=== PATIENT | female | born 1930 | race Caucasian/White ===

== ENCOUNTER 2017-01-27 17:10 | Emergency (ER) | payer OTHER ==
[~2017-01-27] VITALS: Ht 170.2 cm; Wt 82.0 kg
[2017-01-27] VITALS (7 sets, daily range): BP systolic 98–246; BP diastolic 58–116; PULSE 76–92; RESP 18–22; TEMP 98.1–99.1; O2SAT 93–96
[~2017-01-27 17:10] MED LIST: ASPI81TA82 PO; CLON0.2T PO; GLIP2.5T6 OR; LISI20 PO; METO100T PO; SIMV40 PO
[2017-01-27] MEDS ORDERED: SODIUM CHLORIDE 0.9% FLUSH 10 ML FLUSH IVF PRN (17:30)
[2017-01-27] MEDS ORDERED: SPIR25 PO (18:03)
[2017-01-27] MEDS ORDERED: AMLO10 PO (18:03)
[2017-01-27] MEDS ORDERED: D31000CA3 PO (18:03)
[2017-01-27] MEDS ORDERED: ALPH200C4 PO (18:03)
[2017-01-27] MEDS ORDERED: ZOCO20TA PO (18:03)
[2017-01-27] MEDS ORDERED: METO25TA3 PO (18:03)
[2017-01-27] MEDS ORDERED: CLAR10TA7 PO (18:03)
[2017-01-27] MEDS ORDERED: MULTTAB67 PO (18:03)
[2017-01-27] MEDS ORDERED: ASPI-183 PO (18:03)
[2017-01-27] MEDS ORDERED: GLIP5TAB8 PO (18:03)
[2017-01-27] MEDS ORDERED: FISH1400 PO (18:03)
[2017-01-27] MEDS ORDERED: GLUC1TAB24 PO (18:03)
[2017-01-27] MEDS ORDERED: NEUR100C PO (18:03)
[2017-01-27] MEDS ORDERED: METF500T PO (18:03)
[2017-01-27] MEDS ORDERED: LISI-519 PO (18:03)
[2017-01-27 18:06] LABS: AUTOMATED NEUTROPHIL # 6.3 TH/MM3 (1.8-7.7); BASOPHIL # 0.1 TH/MM3 (0-0.2); BASOPHIL % 0.6 % (0.0-2.0); EOSINOPHIL # 0.2 TH/MM3 (0-0.4); EOSINOPHIL % 2.2 % (0.0-4.0); HEMATOCRIT 37.9 % (35.0-46.0); HEMO FLAGS DIFF FINAL; LYMPH % 26.4 % (9.0-44.0); LYMPHOCYTE # 2.6 TH/MM3 (1.0-4.8); MEAN CORPUSCULAR HEMOGLOBIN 29.8 PG (27.0-34.0); MEAN CORPUSCULAR HGB CONC 34.6 % (32.0-36.0); MONO % 6.9 % (0.0-8.0); NEUT % 63.9 % (16.0-70.0); PLATELET COUNT 253 TH/MM3 (150-450); RED BLOOD COUNT 4.41 MIL/MM3 (4.00-5.30); WHITE BLOOD COUNT 9.8 TH/MM3 (4.0-11.0)
[2017-01-27] MEDS ORDERED: cloNIDine HCL 0.2 MG TAB PO ONE (18:15)
[2017-01-27 18:17] LABS: APTT (PATIENT) 24.3 SEC (24.3-30.1); PROTHROMBIN TIME - PATIENT 10.6 SEC (9.8-11.6)
[2017-01-27 18:33] LABS: ANION GAP 9 MEQ/L (5-15); AST (GOT) 22 U/L (15-37); BICARBONATE 29.5 MEQ/L (21.0-32.0); BLOOD UREA NITROGEN 19 MG/DL (7-18); CHLORIDE 100 MEQ/L (98-107); GLOMERULAR FILTRATION RATE 61 ML/MIN (>89); MAGNESIUM 1.9 MG/DL (1.5-2.5); POTASSIUM 3.7 MEQ/L (3.5-5.1); SODIUM (NA) 138 MEQ/L (136-145)
--- NOTE | 2017-01-27 18:38 | PD ---
HPI . Hypertension, weakness Chief Complaint: General Weakness Time Seen by Provider: 17:54 Travel History International Travel<30 days: No Contact w/Intl Traveler<30days: No Traveled to known affect area: No History of Present Illness HPI 86-year-old female presents emergency department for evaluation of hypertension. Patient states she has felt weak and nauseous since last Thursday. Patient also states she fell off of a curb last Thursday hitting the right aspect of her head and her left knee. Patient has been ambulatory since that fall. Patient states she started feeling weak and nauseated on Thursday that went to her primary care today and was found to be hypertensive. Patient states she has taken all of her blood pressure medications this morning. Patient is taking Norvasc, lisinopril and spironolactone. Patient was seen at our facility in 2012 for hypertension. This presentation is very similar to the presentation described in her 2013 visit. Patient is asymptomatic denying chest pain, shortness breath, abdominal pain, headache, lightheadedness. PFSH Past Medical History High Cholesterol: Yes Diabetes: Yes Patient Takes Glucophage: No Diminished Hearing: No GERD: Yes Hypertension: Yes ?: Not Menopausal: Yes : 10 Para: 9 Miscarriage: 1 Past Surgical History Section: Yes (1967) Genitourinary Surgery: Yes (DROPPED KIDNEY FIXED) Hysterectomy: Yes (1967--"PARTIAL") Social History Alcohol Use: No Tobacco Use: No Substance Use: No Allergies-Medications (Allergen,Severity, Reaction): Coded Allergies: No Known Allergies (Verified , 07/16/12) Reported Meds & Prescriptions Reported Meds & Active Scripts Active Clonidine (Clonidine HCl) 0.1 Mg Tab 0.1 Mg PO BID PRN Reported Lisinopril 5 Mg Tab 5 Mg PO DAILY Norvasc (Amlodipine Besylate) 10 Mg Tab 10 Mg PO DAILY Neurontin (Gabapentin) 100 Mg Cap 100 Mg PO HS Zocor (Simvastatin) 20 Mg Tab 20 Mg PO HS Claritin (Loratadine) 10 Mg Tablet 10 Mg PO DAILY Aldactone (Spironolactone) 25 Mg Tab 25 Mg PO DAILY Metoprolol Tartrate 25 Mg Tab 25 Mg PO BID Metformin (Metformin HCl) 500 Mg Tab 500 Mg PO BID With Meals Glipizide 5 Mg Tab 2.5 Mg PO DAILY Take 30 minutes before a meal Alpha Lipoic Acid 200 Mg Cap 600 Mg PO DAILY Vitamin D-3 (Cholecalciferol) 1,000 Unit Cap 1,000 Units PO DAILY Aspirin 325 Mg Tab 325 Mg PO DAILY Fish Oil Triple Strength 1400 mg ([place]-3 Fatty Acids) 900 Mg (253 Mg-647 Mg)-1, 400 Mg Cap 1,400 Mg PO DAILY Move Free Joint Health Ad (Qotmradstky-Tttxbtneaxv-Frtejj) 750 Mg-100 Mg-1.65 Mg -108 Mg Tab 1 Tab PO DAILY Multiple Vitamin 1 Tab 1 Tab PO DAILY Review of Systems Except as stated in HPI: all other systems reviewed are Neg Physical Exam Narrative GENERAL: Well-nourished well-developed 86-year-old female in no acute distress. Conversing and smiling during exam. Nontoxic appearing. SKIN: Focused skin assessment warm/dry. HEAD: Atraumatic. Normocephalic. EYES: Pupils equal and round. No scleral icterus. No injection or drainage. ENT: No nasal bleeding or discharge. Mucous membranes pink and moist. NECK: Trachea midline. No JVD. CARDIOVASCULAR: Regular rate and rhythm. No murmur appreciated. RESPIRATORY: No accessory muscle use. Clear to auscultation. Breath sounds equal bilaterally. GASTROINTESTINAL: Abdomen soft, non-tender, nondistended. Hepatic and splenic margins not palpable. MUSCULOSKELETAL: No obvious deformities. No clubbing. No cyanosis. No edema. NEUROLOGICAL: Awake and alert. No obvious cranial nerve deficits. Motor grossly within normal limits. Normal speech. PSYCHIATRIC: Appropriate mood and affect; insight and judgment normal. Data Data Last Documented VS Vital Signs Date Time Temp Pulse Resp B/P (MAP) Pulse Ox O2 Delivery O2 Flow Rate FiO2 01/27/17 21:35 84 18 98/58 (71) 95 Room Air 01/27/17 17:17 99.1 Orders Orders Electrocardiogram (01/27/17 17:28) Complete Blood Count With Diff (01/27/17 17:28) Comprehensive Metabolic Panel (01/27/17 17:28) Magnesium (Mg) (01/27/17 17:28) Prothrombin Time / Inr (Pt) (01/27/17 17:28) Act Partial Throm Time (Ptt) (01/27/17 17:28) Troponin I (01/27/17 17:28) Chest, Single Ap (01/27/17 17:28) Ecg Monitoring (01/27/17 17:28) Bilateral Bp Monitoring (01/27/17 17:28) Iv Access Insert/Monitor (01/27/17 17:28) Oximetry (01/27/17 17:28) Oxygen Administration (01/27/17 17:28) Sodium Chloride 0.9% Flush (Ns Flush) (01/27/17 17:30) Thyroid Stimulating Hormone (01/27/17 17:28) Clonidine (Catapres) (01/27/17 18:15) Ct Brain W/O Iv Contrast(Rout) (01/27/17 ) Urinalysis - C+S If Indicated (01/27/17 18:20) Ed Discharge Order (01/27/17 19:51) Urine Culture (01/27/17 19:18) Sodium Chlor 0.9% 250 Ml Inj (Ns 250 Ml (01/27/17 21:15) Labs Laboratory Tests Test 01/27/17 17:25 01/27/17 19:18 White Blood Count 9.8 TH/MM3 Red Blood Count 4.41 MIL/MM3 Hemoglobin 13.1 GM/DL Hematocrit 37.9 % Mean Corpuscular Volume 86.0 FL Mean Corpuscular Hemoglobin 29.8 PG Mean Corpuscular Hemoglobin Concent 34.6 % Red Cell Distribution Width 14.0 % Platelet Count 253 TH/MM3 Mean Platelet Volume 7.9 FL Neutrophils (%) (Auto) 63.9 % Lymphocytes (%) (Auto) 26.4 % Monocytes (%) (Auto) 6.9 % Eosinophils (%) (Auto) 2.2 % Basophils (%) (Auto) 0.6 % Neutrophils # (Auto) 6.3 TH/MM3 Lymphocytes # (Auto) 2.6 TH/MM3 Monocytes # (Auto) 0.7 TH/MM3 Eosinophils # (Auto) 0.2 TH/MM3 Basophils # (Auto) 0.1 TH/MM3 CBC Comment DIFF FINAL Differential Comment Prothrombin Time 10.6 SEC Prothromb Time International Ratio 1.0 RATIO Activated Partial Thromboplast Time 24.3 SEC Blood Urea Nitrogen 19 MG/DL Creatinine 0.88 MG/DL Random Glucose 101 MG/DL Total Protein 7.7 GM/DL Albumin 4.1 GM/DL Calcium Level 9.7 MG/DL Magnesium Level 1.9 MG/DL Alkaline Phosphatase 55 U/L Aspartate Amino Transf (AST/SGOT) 22 U/L Alanine Aminotransferase (ALT/SGPT) 30 U/L Total Bilirubin 0.4 MG/DL Sodium Level 138 MEQ/L Potassium Level 3.7 MEQ/L Chloride Level 100 MEQ/L Carbon Dioxide Level 29.5 MEQ/L Anion Gap 9 MEQ/L Estimat Glomerular Filtration Rate 61 ML/MIN Troponin I LESS THAN 0.02 NG/ML Thyroid Stimulating Hormone 3rd Gen 1.650 uIU/ML Urine Color LIGHT-YELLOW Urine Turbidity CLEAR Urine pH 6.5 Urine Specific [place] 1.013 Urine Protein TRACE mg/dL Urine Glucose (UA) NEG mg/dL Urine Ketones NEG mg/dL Urine Occult Blood NEG Urine Nitrite NEG Urine Bilirubin NEG Urine Urobilinogen LESS THAN 2.0 MG/DL Urine Leukocyte Esterase LARGE Urine RBC 3 /hpf Urine WBC 19 /hpf Urine Squamous Epithelial Cells 6 /hpf Urine Bacteria OCC /hpf Urine Hyaline Casts 1 /lpf Urine Mucus FEW /lpf Microscopic Urinalysis Comment CULTURE INDICATED MDM Medical Decision Making Medical Screen Exam Complete: Yes Emergency Medical Condition: Yes Differential Diagnosis Differential diagnoses include but not limited to gastroenteritis, hypertensive crisis, electrolyte abnormality Narrative Course 86-year-old female presents emergency department for evaluation of hypertension , weakness and nausea. Patient found to be hypertensive in triage with bilateral blood pressure readings 246/112 and 223/116. CBC, CMP, MAG, PT/INR, TROP, thyroid stimulating hormone, U/A, CHEST X-RAY, Brain CT, EKG ordered and pending. Clonidine 0.2mg PO given for hypertension. Upon reassessment the patient's blood pressure is 147/76. Blood work is unremarkable for any acute findings. Chest X-ray shows no acute focal infiltrate or pulmonary vascular congestion, minimal bibasilar atelectasis and/or fibrotic scarring. Brain CT shows no acute finding. UA shows UTI patient discharged home with prescription for antibiotic. Patient is discharged home with prescription for Clonidine 0.1mg BID PRN SBP>180 and instruction to keep a blood pressure log and follow up with primary care or return to the emergency department with any worsening condition. Laboratory Tests Test 01/27/17 17:25 White Blood Count 9.8 TH/MM3 Red Blood Count 4.41 MIL/MM3 Hemoglobin 13.1 GM/DL Hematocrit 37.9 % Mean Corpuscular Volume 86.0 FL Mean Corpuscular Hemoglobin 29.8 PG Mean Corpuscular Hemoglobin Concent 34.6 % Red Cell Distribution Width 14.0 % Platelet Count 253 TH/MM3 Mean Platelet Volume 7.9 FL Neutrophils (%) (Auto) 63.9 % Lymphocytes (%) (Auto) 26.4 % Monocytes (%) (Auto) 6.9 % Eosinophils (%) (Auto) 2.2 % Basophils (%) (Auto) 0.6 % Neutrophils # (Auto) 6.3 TH/MM3 Lymphocytes # (Auto) 2.6 TH/MM3 Monocytes # (Auto) 0.7 TH/MM3 Eosinophils # (Auto) 0.2 TH/MM3 Basophils # (Auto) 0.1 TH/MM3 CBC Comment DIFF FINAL Differential Comment Prothrombin Time 10.6 SEC Prothromb Time International Ratio 1.0 RATIO Activated Partial Thromboplast Time 24.3 SEC Blood Urea Nitrogen 19 MG/DL Creatinine 0.88 MG/DL Random Glucose 101 MG/DL Total Protein 7.7 GM/DL Albumin 4.1 GM/DL Calcium Level 9.7 MG/DL Magnesium Level 1.9 MG/DL Alkaline Phosphatase 55 U/L Aspartate Amino Transf (AST/SGOT) 22 U/L Alanine Aminotransferase (ALT/SGPT) 30 U/L Total Bilirubin 0.4 MG/DL Sodium Level 138 MEQ/L Potassium Level 3.7 MEQ/L Chloride Level 100 MEQ/L Carbon Dioxide Level 29.5 MEQ/L Anion Gap 9 MEQ/L Estimat Glomerular Filtration Rate 61 ML/MIN Troponin I LESS THAN 0.02 NG/ML Thyroid Stimulating Hormone 3rd Gen 1.650 uIU/ML Last Impressions Chest X-Ray 01/27/17 1728 Signed Impressions: Service Date/Time: Friday, January 27, 2017 17:43 - CONCLUSION: 1. Minimal bibasilar atelectasis and/or fibrotic scarring. 2. No acute focal infiltrate or pulmonary vascular congestion. Prince Allen MD Diagnosis Primary Impression: Hypertension Qualified Codes: I10 - Essential (primary) hypertension Additional Impression: UTI (urinary tract infection) Qualified Codes: N39.0 - Urinary tract infection, site not specified Referrals: Primary Care Physician Patient Instructions: General Instructions, Hypertension (DC), Urinary Tract Infection in Women (ED) Additional Instructions: Please return to emergency department if your symptoms return or worsen. Follow up with your primary care provider. Take medications as prescribed. Take blood pressure daily and keep a log to follow-up with primary care. Med/Other Pt SpecificInfo: Prescription(s) given Scripts Nitrofurantoin Macrocrystal (Macrodantin) 100 Mg Cap 100 MG PO BID for 5 Days, #10 CAP 0 Refills Prov: Madie Cornejo 01/27/17 Clonidine (Clonidine) 0.1 Mg Tab 0.1 MG PO BID Y for SBP> OR = 180, DBP> OR = 100, #30 TAB 0 Refills Prov: Madie Cornejo 01/27/17 Disposition: 01 DISCHARGE HOME Condition: Stable Madie Cornejo Jan 27, 2017 18:38
[2017-01-27 18:44] LABS: ALKALINE PHOSPHATASE 55 U/L (45-117); ALT (GPT) 30 U/L (10-53); TOTAL BILIRUBIN ADULT 0.4 MG/DL (0.2-1.0)
--- NOTE | 2017-01-27 19:11 | RADRPT ---
EXAM DATE/TIME: 01/27/2017 17:43 [facility] COMPARISON: CHEST SINGLE AP, July 16, 2012, 11:58. INDICATIONS : Chest pain. MEDICAL HISTORY : None. SURGICAL HISTORY : None. ENCOUNTER: Initial ACUITY: 1 day PAIN SCORE: 10 LOCATION: Bilateral chest FINDINGS: Minimal bibasilar atelectasis and/or fibrotic scarring is noted. No pulmonary edema is noted. No acut e focal infiltrate is noted. The heart is stable. Degenerative changes and scoliosis of the thoracic spine are unchanged. CONCLUSION: 1. Minimal bibasilar atelectasis and/or fibrotic scarring. 2. No acute focal infiltrate or pulmonary vascular congestion. Prince Allen MD on January 27, 2017 at 19:09 Board Certified Radiologist. This report was verified electronically.
--- NOTE | 2017-01-27 19:39 | RADRPT ---
EXAM DATE/TIME: 01/27/2017 19:10 [facility] COMPARISON: No previous studies available for comparison. INDICATIONS : Trauma; fall. Hit right side of head. RADIATION DOSE: 51.18 CTDIvol (mGy) MEDICAL HISTORY : Hypertension. SURGICAL HISTORY : Hysterectomy. ENCOUNTER: Initial ACUITY: 1 day PAIN SCALE: 3/10 LOCATION: cranial TECHNIQUE: Multiple contiguous axial images were obtained of the head. Using automated exposure control and adj ustment of the mA and/or kV according to patient size, radiation dose was kept as low as reasonably a chievable to obtain optimal diagnostic quality images. DICOM format image data is available electro nically for review and comparison. FINDINGS: CEREBRUM: Mild cerebral atrophy is noted. No evidence of midline shift, mass lesion, hemorrhage or acute infarc tion. No extra-axial fluid collections are seen. POSTERIOR FOSSA: The cerebellum and brainstem are intact. The 4th ventricle is midline. The cerebellopontine angle i s unremarkable. EXTRACRANIAL: The visualized portion of the orbits is intact. SKULL: The calvaria is intact. No evidence of skull fracture. CONCLUSION: 1. Mild cerebral atrophy. 2. No acute infarct, acute hemorrhage, mass effect or extra- axial fluid collections. Prince Allen MD on January 27, 2017 at 19:35 Board Certified Radiologist. This report was verified electronically.
[2017-01-27] MEDS ORDERED: CLON0.1T PO (19:40)
[2017-01-27 19:57] LABS: BACTERIA, URINE OCC /hpf; BLOOD, URINE NEG (NEG); COMMENT (UR) CULTURE INDICATED; CULTURE IF INDICATED CULTURE INDICATED; GLUCOSE,URINE NEG (NEG); HYALINE CAST, URINE 1 /lpf (RARE); KETONE, URINE NEG (NEG); MUCUS URINE FEW /lpf (OCC); NITRITE,URINE NEG (NEG); PH, URINE 6.5 (5.0-8.5); SQUAMOUS EPITHELIAL CELL URINE 6 /hpf (0-5); URINE COLOR LIGHT-YELLOW (YELLW/STRAW)
--- NOTE | 2017-01-27 19:58 | PD ---
Data Data Last Documented VS Vital Signs Date Time Temp Pulse Resp B/P (MAP) Pulse Ox O2 Delivery O2 Flow Rate FiO2 01/27/17 19:48 87 18 147/76 (99) 96 Room Air 01/27/17 17:17 99.1 Orders Orders Electrocardiogram (01/27/17 17:28) Complete Blood Count With Diff (01/27/17 17:28) Comprehensive Metabolic Panel (01/27/17 17:28) Magnesium (Mg) (01/27/17 17:28) Prothrombin Time / Inr (Pt) (01/27/17 17:28) Act Partial Throm Time (Ptt) (01/27/17 17:28) Troponin I (01/27/17 17:28) Chest, Single Ap (01/27/17 17:28) Ecg Monitoring (01/27/17 17:28) Bilateral Bp Monitoring (01/27/17 17:28) Iv Access Insert/Monitor (01/27/17 17:28) Oximetry (01/27/17 17:28) Oxygen Administration (01/27/17 17:28) Sodium Chloride 0.9% Flush (Ns Flush) (01/27/17 17:30) Thyroid Stimulating Hormone (01/27/17 17:28) Clonidine (Catapres) (01/27/17 18:15) Ct Brain W/O Iv Contrast(Rout) (01/27/17 ) Urinalysis - C+S If Indicated (01/27/17 18:20) Ed Discharge Order (01/27/17 19:51) Labs Laboratory Tests Test 01/27/17 17:25 01/27/17 19:18 White Blood Count 9.8 TH/MM3 Red Blood Count 4.41 MIL/MM3 Hemoglobin 13.1 GM/DL Hematocrit 37.9 % Mean Corpuscular Volume 86.0 FL Mean Corpuscular Hemoglobin 29.8 PG Mean Corpuscular Hemoglobin Concent 34.6 % Red Cell Distribution Width 14.0 % Platelet Count 253 TH/MM3 Mean Platelet Volume 7.9 FL Neutrophils (%) (Auto) 63.9 % Lymphocytes (%) (Auto) 26.4 % Monocytes (%) (Auto) 6.9 % Eosinophils (%) (Auto) 2.2 % Basophils (%) (Auto) 0.6 % Neutrophils # (Auto) 6.3 TH/MM3 Lymphocytes # (Auto) 2.6 TH/MM3 Monocytes # (Auto) 0.7 TH/MM3 Eosinophils # (Auto) 0.2 TH/MM3 Basophils # (Auto) 0.1 TH/MM3 CBC Comment DIFF FINAL Differential Comment Prothrombin Time 10.6 SEC Prothromb Time International Ratio 1.0 RATIO Activated Partial Thromboplast Time 24.3 SEC Blood Urea Nitrogen 19 MG/DL Creatinine 0.88 MG/DL Random Glucose 101 MG/DL Total Protein 7.7 GM/DL Albumin 4.1 GM/DL Calcium Level 9.7 MG/DL Magnesium Level 1.9 MG/DL Alkaline Phosphatase 55 U/L Aspartate Amino Transf (AST/SGOT) 22 U/L Alanine Aminotransferase (ALT/SGPT) 30 U/L Total Bilirubin 0.4 MG/DL Sodium Level 138 MEQ/L Potassium Level 3.7 MEQ/L Chloride Level 100 MEQ/L Carbon Dioxide Level 29.5 MEQ/L Anion Gap 9 MEQ/L Estimat Glomerular Filtration Rate 61 ML/MIN Troponin I LESS THAN 0.02 NG/ML Thyroid Stimulating Hormone 3rd Gen 1.650 uIU/ML MDM Supervised Visit with SVETLANA: Yes Narrative Course The history, exam, and medical decision-making in the associated mid-level provider note were completed with my assistance. I reviewed and agree with the findings presented. I attest that I had a [id number] encounter with the patient on the same day, and personally performed and documented my assessment and findings in the medical record. *My assessment and Findings: An 86-year-old woman who presents to the emergency department complaining of dizziness. Blood pressures elevated. Exams unremarkable. Looks well. Treated with clonidine with good effect. She's been on clonidine in the past. Recommend continue the clonidine and close outpatient follow-up with her primary physician. Diagnosis Primary Impression: Hypertension Qualified Codes: I10 - Essential (primary) hypertension Referrals: Primary Care Physician Patient Instructions: General Instructions, Hypertension (DC) Departure Forms: Tests/Procedures Additional Instruction: Please return to emergency department if your symptoms return or worsen. Follow up with your primary care provider. Take medications as prescribed. Take blood pressure daily and keep a log to follow-up with primary care. Scripts Clonidine (Clonidine) 0.1 Mg Tab 0.1 MG PO BID Y for SBP> OR = 180, DBP> OR = 100, #30 TAB 0 Refills Prov: Madie Cornejo 01/27/17 Disposition: 01 DISCHARGE HOME Condition: Stable Barber Rajput MD Jan 27, 2017 19:58
[2017-01-27] MEDS ORDERED: SODIUM CHLOR 0.9% 250 ML INJ 250 ML IV ONE (21:15)
[2017-01-27] MEDS ORDERED: MACR100C3 PO (21:47)
[2017-01-27] MEDS ORDERED: NITROFURANTOIN MONOHYD MACROCR 100 MG CAP PO ONE (22:15)
--- NOTE | 2017-01-27 22:41 | EKG ---
Date Performed: 01/27/2017 Time Performed: 17:21:16 PTAGE: 86 years EKG: Sinus rhythm MARKED LEFT AXIS DEVIATION INCOMPLETE RIGHT BUNDLE BRANCH BLOCK NONSPECIFIC T-WAVE ABNORMALITY ABNOR MAL ECG Compared to prior tracing no significant change DOCTOR: Kelsey Addison Interpretating Date/Time 01/27/2017 22:39:52
== END 2017-01-27 22:38 | disposition home or self-care (01) ==
LOC: NEPC 17:10
DX: I10 Essential (primary) hypertension (principal); N39.0 Urinary tract infection, site not specified; R53.1 Weakness; R11.0 Nausea; R94.31 Abnormal electrocardiogram [ECG] [EKG]; E11.9 Type 2 diabetes mellitus without complications; E78.00 Pure hypercholesterolemia, unspecified; Z79.84 Long term (current) use of oral hypoglycemic drugs; Z87.19 Personal history of other diseases of the digestive system; W19.XXXA Unspecified fall, initial encounter
CPT/HCPCS: 70450; 71010; 80053; 81001; 83735; 84443; 84484; 85025; 85610; 85730; 87086; 93005; 96360; 99285; J7050

== ENCOUNTER 2017-01-28 15:18 | Inpatient (IN) | payer OTHER, MEDICARE ==
[2017-01-28] VITALS (7 sets, daily range): BP systolic 172–230; BP diastolic 81–119; PULSE 69–73; RESP 16; TEMP 98.5; O2SAT 93–98
[~2017-01-28] VITALS: Ht 170.2 cm; Wt 87.0 kg
[~2017-01-28 15:18] MED LIST changes: +ALPH200C4 PO; +AMLO10 PO; +ASPI-183 PO; -ASPI81TA82 PO; +CLAR10TA7 PO; +CLON0.1T PO; -CLON0.2T PO; +D31000CA3 PO; +FISH1400 PO; -GLIP2.5T6 OR; +GLIP5TAB8 PO; +GLUC1TAB24 PO; +LISI-519 PO; -LISI20 PO; +MACR100C3 PO; +METF500T PO; -METO100T PO; +METO25TA3 PO; +MULTTAB67 PO; +NEUR100C PO; -SIMV40 PO; +SPIR25 PO; +ZOCO20TA PO
--- NOTE | 2017-01-28 17:48 | PD ---
HPI Chief Complaint: Hypertension Time Seen by Provider: 17:48 Travel History International Travel<30 days: No Contact w/Intl Traveler<30days: No Traveled to known affect area: No History of Present Illness HPI 86-year-old female with PMH of HTN, GERD, DM type 2 presents to the ED for evaluation of high blood pressure. Patient states that she was recently seen in the ED for high blood pressure and told to return to return if her blood pressure was high again. She states that she took a dose of clonidine and her blood pressure is improved. She complains of approximately 24-hour history of upper left abdominal pain with nausea and vomiting. She endorses anorexia. She denies hematemesis. She denies fever, chills, headache, dizziness chest pain, palpitations, constipation, diarrhea, melena, hematochezia, dysuria. She is followed by Dr. Alvarado. [facility] Past Medical History High Cholesterol: Yes Diabetes: Yes Diminished Hearing: No GERD: Yes Hypertension: Yes Menopausal: Yes : 10 Para: 9 Miscarriage: 1 Past Surgical History Section: Yes (1967) Genitourinary Surgery: Yes (DROPPED KIDNEY FIXED) Hysterectomy: Yes (1967--"PARTIAL") Social History Alcohol Use: No Tobacco Use: No Substance Use: No Allergies-Medications (Allergen,Severity, Reaction): Coded Allergies: No Known Allergies (Verified Adverse Reaction, Unknown, 01/28/17) Reported Meds & Prescriptions Reported Meds & Active Scripts Active Macrodantin (Nitrofurantoin Macrocrystal) 100 Mg Cap 100 Mg PO BID 5 Days Clonidine (Clonidine HCl) 0.1 Mg Tab 0.1 Mg PO BID PRN Reported Lisinopril 5 Mg Tab 5 Mg PO DAILY Norvasc (Amlodipine Besylate) 10 Mg Tab 10 Mg PO DAILY Neurontin (Gabapentin) 100 Mg Cap 100 Mg PO HS Zocor (Simvastatin) 20 Mg Tab 20 Mg PO HS Claritin (Loratadine) 10 Mg Tablet 10 Mg PO DAILY Aldactone (Spironolactone) 25 Mg Tab 25 Mg PO DAILY Metoprolol Tartrate 25 Mg Tab 25 Mg PO BID Metformin (Metformin HCl) 500 Mg Tab 500 Mg PO BID With Meals Glipizide 5 Mg Tab 2.5 Mg PO DAILY Take 30 minutes before a meal Alpha Lipoic Acid 200 Mg Cap 600 Mg PO DAILY Vitamin D-3 (Cholecalciferol) 1,000 Unit Cap 1,000 Units PO DAILY Aspirin 325 Mg Tab 325 Mg PO DAILY Fish Oil Triple Strength 1400 mg ([place]-3 Fatty Acids) 900 Mg (253 Mg-647 Mg)-1, 400 Mg Cap 1,400 Mg PO DAILY Move Free Joint Health Ad (Cnmepbvxdgn-Aovkkoxlryo-Qktysp) 750 Mg-100 Mg-1.65 Mg -108 Mg Tab 1 Tab PO DAILY Multiple Vitamin 1 Tab 1 Tab PO DAILY Review of Systems Except as stated in HPI: all other systems reviewed are Neg Physical Exam Narrative GENERAL: Well-nourished, well-developed white female in no acute distress. SKIN: Focused skin assessment warm/dry. HEAD: Normocephalic. EYES: No scleral icterus. No injection or drainage. NECK: Supple, trachea midline. No JVD or lymphadenopathy. CARDIOVASCULAR: Regular rate and rhythm without murmurs, gallops, or rubs. RESPIRATORY: Breath sounds clear and equal bilaterally. No accessory muscle use. GASTROINTESTINAL: Abdomen soft, nondistended. Mildly tender to palpation in the left upper quadrant. MUSCULOSKELETAL: No cyanosis, or edema. BACK: Nontender without obvious deformity. No CVA tenderness. Data Data Last Documented VS Vital Signs Date Time Temp Pulse Resp B/P (MAP) Pulse Ox O2 Delivery O2 Flow Rate FiO2 01/28/17 19:55 178/119 (138) 01/28/17 15:40 98.5 69 16 93 Orders Orders Complete Blood Count With Diff (01/28/17 17:46) Comprehensive Metabolic Panel (01/28/17 17:46) Lipase (01/28/17 17:46) Lactic Acid (01/28/17 17:46) Urinalysis - C+S If Indicated (01/28/17 17:46) Iv Access Insert/Monitor (01/28/17 17:46) Ecg Monitoring (01/28/17 17:46) Oximetry (01/28/17 17:46) NPO (01/28/17 17:46) Ondansetron Inj (Zofran Inj) (01/28/17 18:00) Sodium Chloride 0.9% Flush (Ns Flush) (01/28/17 18:00) Ct Abd/Pel W Iv Contrast(Rout) (01/28/17 ) Sodium Chlorid 0.9% 500 Ml Inj (Ns 500 M (01/28/17 20:00) Metoclopramide Inj (Reglan Inj) (01/28/17 20:00) Electrocardiogram (01/28/17 ) Metoprolol Tartrate (Lopressor) (01/28/17 20:15) Ondansetron Inj (Zofran Inj) (01/28/17 21:00) Iohexol 350 Inj (Omnipaque 350 Inj) (01/28/17 20:49) Labs Laboratory Tests Test 01/28/17 18:48 White Blood Count 10.1 TH/MM3 Red Blood Count 4.02 MIL/MM3 Hemoglobin 11.9 GM/DL Hematocrit 34.8 % Mean Corpuscular Volume 86.7 FL Mean Corpuscular Hemoglobin 29.5 PG Mean Corpuscular Hemoglobin Concent 34.0 % Red Cell Distribution Width 13.8 % Platelet Count 234 TH/MM3 Mean Platelet Volume 8.0 FL Neutrophils (%) (Auto) 73.9 % Lymphocytes (%) (Auto) 18.2 % Monocytes (%) (Auto) 5.8 % Eosinophils (%) (Auto) 1.8 % Basophils (%) (Auto) 0.3 % Neutrophils # (Auto) 7.4 TH/MM3 Lymphocytes # (Auto) 1.8 TH/MM3 Monocytes # (Auto) 0.6 TH/MM3 Eosinophils # (Auto) 0.2 TH/MM3 Basophils # (Auto) 0.0 TH/MM3 CBC Comment DIFF FINAL Differential Comment Blood Urea Nitrogen 25 MG/DL Creatinine 0.91 MG/DL Random Glucose 121 MG/DL Total Protein 7.6 GM/DL Albumin 3.8 GM/DL Calcium Level 9.7 MG/DL Alkaline Phosphatase 53 U/L Aspartate Amino Transf (AST/SGOT) 20 U/L Alanine Aminotransferase (ALT/SGPT) 28 U/L Total Bilirubin 0.5 MG/DL Sodium Level 137 MEQ/L Potassium Level 4.7 MEQ/L Chloride Level 99 MEQ/L Carbon Dioxide Level 31.2 MEQ/L Anion Gap 7 MEQ/L Estimat Glomerular Filtration Rate 59 ML/MIN Lactic Acid Level 1.6 mmol/L Lipase 402 U/L MDM Medical Decision Making Medical Screen Exam Complete: Yes Emergency Medical Condition: Yes Differential Diagnosis Hypertension versus GERD versus pancreatitis versus metabolic derangement versus other Narrative Course 86-year-old female with PMH of HTN, GERD, DM type 2 presents to the ED for evaluation of high blood pressure. Patient states that she was recently seen in the ED for high blood pressure and told to return to return if her blood pressure was high again. She states that she took a dose of clonidine and her blood pressure is improved. She complains of approximately 24-hour history of upper left abdominal pain with nausea and vomiting. She endorses anorexia. She denies hematemesis. She denies fever, chills, headache, dizziness chest pain, palpitations, constipation, diarrhea, melena, hematochezia, dysuria. Vitals reviewed. BP 173/82 on presentation. Physical exam reveals a nontoxic- appearing white female in no acute distress. She does have some tenderness in the left upper quadrant but the exam is otherwise reassuring. Patient was administered 40 mg Zofran by mouth. CBC, CMP, lipase, lactate, EKG, CT of the abdomen and pelvis ordered and pending. Patient was seen in the ambulance call. Please see oncoming provider note for disposition. Isabella Duval Jan 28, 2017 17:48
[2017-01-28] MEDS ORDERED: SODIUM CHLORIDE 0.9% FLUSH 10 ML FLUSH IV FLUSH PRN (18:00)
[2017-01-28] MEDS ORDERED: ONDANSETRON HCL 4 MG/2 ML VIAL IVP ONE (18:00)
[2017-01-28 19:15] LABS: AUTOMATED NEUTROPHIL # 7.4 TH/MM3 (1.8-7.7); BASOPHIL % 0.3 % (0.0-2.0); EOSINOPHIL # 0.2 TH/MM3 (0-0.4); EOSINOPHIL % 1.8 % (0.0-4.0); HEMATOCRIT 34.8 % (35.0-46.0); HEMO FLAGS DIFF FINAL; LYMPH % 18.2 % (9.0-44.0); LYMPHOCYTE # 1.8 TH/MM3 (1.0-4.8); MEAN CELL VOLUME 86.7 FL (80.0-100.0); MEAN CORPUSCULAR HEMOGLOBIN 29.5 PG (27.0-34.0); MONO % 5.8 % (0.0-8.0); NEUT % 73.9 % (16.0-70.0); PLATELET COUNT 234 TH/MM3 (150-450); RED BLOOD COUNT 4.02 MIL/MM3 (4.00-5.30); RED CELL DISTRIBUTION WIDTH 13.8 % (11.6-17.2); WHITE BLOOD COUNT 10.1 TH/MM3 (4.0-11.0)
[2017-01-28 19:34] LABS: ALKALINE PHOSPHATASE 53 U/L (45-117); ALT (GPT) 28 U/L (10-53); ANION GAP 7 MEQ/L (5-15); AST (GOT) 20 U/L (15-37); BICARBONATE 31.2 MEQ/L (21.0-32.0); BLOOD UREA NITROGEN 25 MG/DL (7-18); CHLORIDE 99 MEQ/L (98-107); GLOMERULAR FILTRATION RATE 59 ML/MIN (>89); POTASSIUM 4.7 MEQ/L (3.5-5.1); SODIUM (NA) 137 MEQ/L (136-145); TOTAL BILIRUBIN ADULT 0.5 MG/DL (0.2-1.0)
--- NOTE | 2017-01-28 19:55 | PD ---
Physical Exam Date Seen by Provider: Jan 28, 2017 Time Seen by Provider: 19:54 Narrative Patient was initially evaluated in the ambulance hallway for evaluation of hypertension, abdominal pain. Patient reports that she was here yesterday with hypertension as well. She was told to come back if it came back. She states her blood pressure went over 200 systolic so she came back. However, she took a clonidine before returning which has lowered her blood pressure. Patient also complains of upper abdominal pain that started on Thursday. Patient reports nausea and vomiting. She was 3 episodes of vomiting last night is nauseated at this time. Patient denies any diarrhea or constipation. No blood in her stool. No hematemesis. No fevers, chills, headache, dizziness, chest pain, shortness of breath. No exacerbating or alleviating factors. Moderate severity. Patient currently rates pain 2/10 to the upper abdomen without radiation. Pain is aching. GENERAL: Well-nourished, well-developed female patient, afebrile. SKIN: Focused skin assessment warm/dry. HEAD: Normocephalic. Atraumatic. EYES: No scleral icterus. No injection or drainage. NECK: Supple, trachea midline. No JVD or lymphadenopathy. CARDIOVASCULAR: Regular rate and rhythm without murmurs, gallops, or rubs. RESPIRATORY: Breath sounds equal bilaterally. No accessory muscle use. Lungs sounds are clear to auscultation. GASTROINTESTINAL: Abdomen soft and nondistended. She has mild tenderness to the upper abdomen to palpation. MUSCULOSKELETAL: No cyanosis, or edema. BACK: Nontender without obvious deformity. No CVA tenderness. Data Data Last Documented VS Vital Signs Date Time Temp Pulse Resp B/P (MAP) Pulse Ox O2 Delivery O2 Flow Rate FiO2 01/28/17 21:48 230/107 (148) 01/28/17 15:40 98.5 69 16 93 Orders Orders Complete Blood Count With Diff (01/28/17 17:46) Comprehensive Metabolic Panel (01/28/17 17:46) Lipase (01/28/17 17:46) Lactic Acid (01/28/17 17:46) Urinalysis - C+S If Indicated (01/28/17 17:46) Iv Access Insert/Monitor (01/28/17 17:46) Ecg Monitoring (01/28/17 17:46) Oximetry (01/28/17 17:46) NPO (01/28/17 17:46) Ondansetron Inj (Zofran Inj) (01/28/17 18:00) Sodium Chloride 0.9% Flush (Ns Flush) (01/28/17 18:00) Ct Abd/Pel W Iv Contrast(Rout) (01/28/17 ) Sodium Chlorid 0.9% 500 Ml Inj (Ns 500 M (01/28/17 20:00) Metoclopramide Inj (Reglan Inj) (01/28/17 20:00) Electrocardiogram (01/28/17 ) Metoprolol Tartrate (Lopressor) (01/28/17 20:15) Ondansetron Inj (Zofran Inj) (01/28/17 21:00) Iohexol 350 Inj (Omnipaque 350 Inj) (01/28/17 20:49) Hydralazine Inj (Apresoline Inj) (01/28/17 22:00) Admit Order (Ed Use Only) (01/28/17 22:00) Place In Observation (01/28/17 ) Vital Signs (Adult) Q4H (01/28/17 22:01) Activity Oob With Assistance (01/28/17 22:01) Logging Truck Driver / Telemetry .CONTINUOUS (01/28/17 22:01) Diet Heart Healthy (01/29/17 Breakfast) Sodium Chloride 0.9% Flush (Ns Flush) (01/28/17 22:15) Sodium Chloride 0.9% Flush (Ns Flush) (01/29/17 09:00) Basic Metabolic Panel (Bmp) (01/29/17 06:00) Complete Blood Count With Diff (01/29/17 06:00) Case Management Consult (01/28/17 22:01) Naloxone Inj (Narcan Inj) (01/28/17 22:15) Labs Laboratory Tests Test 01/28/17 18:48 White Blood Count 10.1 TH/MM3 Red Blood Count 4.02 MIL/MM3 Hemoglobin 11.9 GM/DL Hematocrit 34.8 % Mean Corpuscular Volume 86.7 FL Mean Corpuscular Hemoglobin 29.5 PG Mean Corpuscular Hemoglobin Concent 34.0 % Red Cell Distribution Width 13.8 % Platelet Count 234 TH/MM3 Mean Platelet Volume 8.0 FL Neutrophils (%) (Auto) 73.9 % Lymphocytes (%) (Auto) 18.2 % Monocytes (%) (Auto) 5.8 % Eosinophils (%) (Auto) 1.8 % Basophils (%) (Auto) 0.3 % Neutrophils # (Auto) 7.4 TH/MM3 Lymphocytes # (Auto) 1.8 TH/MM3 Monocytes # (Auto) 0.6 TH/MM3 Eosinophils # (Auto) 0.2 TH/MM3 Basophils # (Auto) 0.0 TH/MM3 CBC Comment DIFF FINAL Differential Comment Blood Urea Nitrogen 25 MG/DL Creatinine 0.91 MG/DL Random Glucose 121 MG/DL Total Protein 7.6 GM/DL Albumin 3.8 GM/DL Calcium Level 9.7 MG/DL Alkaline Phosphatase 53 U/L Aspartate Amino Transf (AST/SGOT) 20 U/L Alanine Aminotransferase (ALT/SGPT) 28 U/L Total Bilirubin 0.5 MG/DL Sodium Level 137 MEQ/L Potassium Level 4.7 MEQ/L Chloride Level 99 MEQ/L Carbon Dioxide Level 31.2 MEQ/L Anion Gap 7 MEQ/L Estimat Glomerular Filtration Rate 59 ML/MIN Lactic Acid Level 1.6 mmol/L Lipase 402 U/L [facility] Medical Record Reviewed: Yes Supervised Visit with SVETLANA: No Differential Diagnosis Hypertension versus gastritis versus GERD versus pancreatitis versus diverticulitis versus UTI versus pyelonephritis Narrative Course 86 year old female presents to the emergency department for evaluation of hypertension as well as upper abdominal pain that has been ongoing since Thursday , 5 days ago. I reviewed visit from yesterday. CBC was unremarkable. CMP showed no acute abnormalities. Troponin was less than 0.02. TSH is 1.650. Coags were unremarkable. UA showed large leukocyte esterase, 19 WBCs. Chest x- ray showed no acute infiltrate or pulmonary vascular congestion. CT of the brain showed mild cerebral atrophy, no acute infarct, acute hemorrhage, mass effect or extra-axial fluid collections. Patient was discharged prescription for clonidine and Macrobid. EKG, CBC, CMP, lipase, lactic acid, UA are ordered and pending. CT the abdomen/pelvis with IV contrast is ordered and pending. Patient was given Zofran 4 mg IV and able tolerate. Patient is now given normal saline 1 L IV bolus, Reglan 10 mg IV. Patient is due for her nightly metoprolol. She is given metoprolol 25 mg by mouth. EKG shows sinus rhythm, heart rate 69, no acute ST changes. CBC shows no acute abnormality. CMP shows elevated BUN at 25, glucose 121. Lipase is 402. Lactic acid is 1.6. CT abdomen/pelvis shows Fatty liver.; 5.7 x 3.5 cm cystic lesion within the right hemipelvis posteriorly. Outpatient ultrasound of the pelvis may be helpful for further characterization of this finding if clinically indicated; Posterior bibasilar atelectasis; Degenerative changes and scoliosis of the thoracolumbar spine. Upon reevaluation, blood pressure is now up to 230/107. The patient and the patient's family stated they are not comfortable her going home and would like to be admitted. He states she has been progressively getting weaker and has had intractable nausea. Patient is given hydralazine 10 mg IV. Hospitalist is paged for admission. Dr. Aldridge accepted admission. Diagnosis Primary Impression: Hypertensive urgency Additional Impression: Generalized weakness Admitting Information Admitting Physician Requests: Observation Saida Leblanc Jan 28, 2017 19:55
[2017-01-28] MEDS ORDERED: SODIUM CHLORID 0.9% 500 ML INJ 500 ML IV ONE (20:00)
[2017-01-28] MEDS ORDERED: METOCLOPRAMIDE HCL 10 MG/2 ML VIAL IV PUSH ONE (20:00)
[2017-01-28] MEDS ORDERED: METOPROLOL TARTRATE 25 MG TAB PO ONE (20:15)
[2017-01-28] MEDS ORDERED: IOHEXOL 350 MG/ML 10 ML VIAL (for RAD DIAG) IVCONTRAST ONE (20:49)
[2017-01-28] MEDS ORDERED: ONDANSETRON HCL 4 MG/2 ML VIAL IV PUSH ONE (21:00)
--- NOTE | 2017-01-28 21:07 | RADRPT ---
EXAM DATE/TIME: 01/28/2017 20:28 [facility] COMPARISON: No previous studies available for comparison. INDICATIONS : Patient complains of abdominal pain. IV CONTRAST: 100 cc Omnipaque 350 (iohexol) IV ORAL CONTRAST: No oral contrast ingested. RADIATION DOSE: 7.77 CTDIvol (mGy) MEDICAL HISTORY : Hypertension. Diabetes mellitus type 1. SURGICAL HISTORY : Hysterectomy. ENCOUNTER: Initial ACUITY: 1 day PAIN SCALE: 5/10 LOCATION: abdomen TECHNIQUE: Volumetric scanning of the abdomen and pelvis was performed. Using automated exposure control and ad justment of the mA and/or kV according to patient size, radiation dose was kept as low as reasonably achievable to obtain optimal diagnostic quality images. DICOM format image data is available electro nically for review and comparison. FINDINGS: LOWER LUNGS: Posterior bibasilar atelectasis is noted. LIVER: The liver demonstrates fatty infiltration. No mass is noted. There is no dilation of the biliary tree . No calcified gallstones. SPLEEN: Normal size without lesion. PANCREAS: Within normal limits. KIDNEYS: Normal in size and shape. There is no mass, stone or hydronephrosis. ADRENAL GLANDS: Within normal limits. VASCULAR: There is no aortic aneurysm. BOWEL/MESENTERY: The stomach, small bowel, and colon demonstrate no acute abnormality. There is no free intraperitone al air or fluid. ABDOMINAL WALL: Within normal limits. RETROPERITONEUM: There is no lymphadenopathy. BLADDER: No wall thickening or mass. REPRODUCTIVE: There is a cystic lesion within the right hemipelvis posteriorly measuring 5.7 x 3.5 cm. Outpatient u ltrasound of the pelvis may be helpful for further assessment of this finding. INGUINAL: There is no lymphadenopathy or hernia. MUSCULOSKELETAL: Degenerative changes and scoliosis of the thoraco-lumbar spine are noted. CONCLUSION: 1. Fatty liver. 2. 5.7 x 3.5 cm cystic lesion within the right hemipelvis posteriorly. Outpatient ultrasound of the p jerson may be helpful for further characterization of this finding if clinically indicated. 3. Posterior bibasilar atelectasis. 4. Degenerative changes and scoliosis of the thoracolumbar spine. Prince Allen MD on January 28, 2017 at 21:01 Board Certified Radiologist. This report was verified electronically.
[2017-01-28] MEDS ORDERED: hydrALAZINE HCL 20 MG/ML VIAL IV PUSH ONE (22:00)
[2017-01-28] MEDS ORDERED: NALOXONE HCL 0.4 MG/ML AMP IV PUSH PRN (22:15)
[2017-01-29] VITALS (12 sets, daily range): BP systolic 100–221; BP diastolic 59–109; PULSE 72–149; RESP 16–31; TEMP 98.1–99; O2SAT 88–98
[2017-01-29] MEDS: PROMETHAZINE INJ 25 MG/ML VIAL IM PRN ×2 (02:24→09:45)
[2017-01-29] MEDS: hydrALAZINE HCL 20 MG/ML VIAL IV PUSH PRN ×2 (02:25→04:53)
[2017-01-29] MEDS ORDERED: CHLORHEXIDINE GLUCONATE 2 % 1 PACK (2 CLOTHS)(extra cloths) TOPICAL PRN (04:45)
[2017-01-29] MEDS: ENALAPRILAT 2.5 MG/2 ML VIAL IV PUSH PRN (04:53)
[2017-01-29 05:03] LABS: AUTOMATED NEUTROPHIL # 9.5 TH/MM3 (1.8-7.7); BASOPHIL % 0.3 % (0.0-2.0); EOSINOPHIL % 0.2 % (0.0-4.0); HEMATOCRIT 37.6 % (35.0-46.0); HEMO FLAGS DIFF FINAL; LYMPH % 18.4 % (9.0-44.0); LYMPHOCYTE # 2.3 TH/MM3 (1.0-4.8); MEAN CELL VOLUME 86.1 FL (80.0-100.0); MEAN CORPUSCULAR HGB CONC 33.7 % (32.0-36.0); MONO % 5.8 % (0.0-8.0); NEUT % 75.3 % (16.0-70.0); PLATELET COUNT 275 TH/MM3 (150-450); RED BLOOD COUNT 4.36 MIL/MM3 (4.00-5.30); RED CELL DISTRIBUTION WIDTH 14.1 % (11.6-17.2); WHITE BLOOD COUNT 12.7 TH/MM3 (4.0-11.0)
[2017-01-29 05:27] LABS: BICARBONATE 25.5 MEQ/L (21.0-32.0); POTASSIUM 3.4 MEQ/L (3.5-5.1)
[2017-01-29] MEDS: ONDANSETRON HCL 4 MG/2 ML VIAL IV PUSH PRN ×2 (05:43→14:08)
--- NOTE | 2017-01-29 05:45 | HHI.HP ---
[facility] Unknown Admission Diagnosis hypertensive urgency, generalized weakness Diagnoses: Travel History International Travel<30 Days: No Contact w/Intl Traveler <30 Da: No Traveled to Known Affected Are: No History of Present Illness started thursday nasua, vomiting 3x a day, brownish vomit no diarrha liottle black color dstool no abdominal pain or chest pain last thu had a fall hit side of her face was walking down court for supea[place]igex no stress just wlked off the curb and thats why fell no syncope no blood thinners head ct on 01/27 wnl Past Family Social History Past Medical History htn dm medications non compliance past few days Past Surgical History partial hysterectomy dropped kidney sx Allergies: Coded Allergies: No Known Allergies (Verified Allergy, Unknown, 01/28/17) Family History one sister- and one brother- from cancer - all metastasized another sister- parkinsons Social History quit smoking 45yrs ago no etoh abuse lives with 2 of her children still driving Physical Exam Vital Signs Vital Signs Date Time Temp Pulse Resp B/P (MAP) Pulse Ox O2 Delivery O2 Flow Rate FiO2 01/29/17 02:25 91 16 174/86 (115) 96 Room Air 01/29/17 01:50 221/104 (143) 01/29/17 01:20 72 16 214/109 (144) 96 Room Air 01/28/17 23:44 72 16 188/84 (118) Room Air 01/28/17 23:04 96 Room Air 01/28/17 23:03 73 16 172/81 (111) 98 Room Air 01/28/17 22:34 200/109 (139) 01/28/17 21:48 230/107 (148) 01/28/17 19:55 178/119 (138) 01/28/17 15:40 98.5 69 16 173/82 (112) 93 Physical Exam GENERAL: This is a well-nourished, well-developed patient, in no apparent distress. SKIN: No rashes, ecchymoses or lesions. Cool and dry. HEAD: Atraumatic. Normocephalic. No temporal or scalp tenderness. EYES: Pupils equal round and reactive. Extraocular motions intact. No scleral icterus. No injection or drainage. ENT: Nose without bleeding, purulent drainage or septal hematoma. Throat without erythema, tonsillar hypertrophy or exudate. Uvula midline. Airway patent. NECK: Trachea midline. No JVD or lymphadenopathy. Supple, nontender, no meningeal signs. CARDIOVASCULAR: Regular rate and rhythm without murmurs, gallops, or rubs. RESPIRATORY: Clear to auscultation. Breath sounds equal bilaterally. No wheezes , rales, or rhonchi. GASTROINTESTINAL: Abdomen soft, non-tender, nondistended. No hepato-splenomegaly , or palpable masses. No guarding. MUSCULOSKELETAL: Extremities without clubbing, cyanosis, or edema. No joint tenderness, effusion, or edema noted. No calf tenderness. Negative Homans sign bilaterally. NEUROLOGICAL: Awake and alert. Cranial nerves II through XII intact. Motor and sensory grossly within normal limits. Five out of 5 muscle strength in all muscle groups. Normal speech. Laboratory Laboratory Tests Test 01/28/17 18:48 01/29/17 04:11 White Blood Count 10.1 12.7 Red Blood Count 4.02 4.36 Hemoglobin 11.9 12.6 Hematocrit 34.8 37.6 Mean Corpuscular Volume 86.7 86.1 Mean Corpuscular Hemoglobin 29.5 29.0 Mean Corpuscular Hemoglobin Concent 34.0 33.7 Red Cell Distribution Width 13.8 14.1 Platelet Count 234 275 Mean Platelet Volume 8.0 8.0 Neutrophils (%) (Auto) 73.9 75.3 Lymphocytes (%) (Auto) 18.2 18.4 Monocytes (%) (Auto) 5.8 5.8 Eosinophils (%) (Auto) 1.8 0.2 Basophils (%) (Auto) 0.3 0.3 Neutrophils # (Auto) 7.4 9.5 Lymphocytes # (Auto) 1.8 2.3 Monocytes # (Auto) 0.6 0.7 Eosinophils # (Auto) 0.2 0.0 Basophils # (Auto) 0.0 0.0 CBC Comment DIFF FINAL DIFF FINAL Differential Comment Blood Urea Nitrogen 25 24 Creatinine 0.91 0.87 Random Glucose 121 130 Total Protein 7.6 Albumin 3.8 Calcium Level 9.7 9.0 Alkaline Phosphatase 53 Aspartate Amino Transf (AST/SGOT) 20 Alanine Aminotransferase (ALT/SGPT) 28 Total Bilirubin 0.5 Sodium Level 137 135 Potassium Level 4.7 3.4 Chloride Level 99 100 Carbon Dioxide Level 31.2 25.5 Anion Gap 7 10 Estimat Glomerular Filtration Rate 59 62 Lactic Acid Level 1.6 Lipase 402 Result Diagram: 01/29/1741001/29/17410 Caprini VTE Risk Assessment Caprini Risk Assessment Model Point Value = 1 Point Value = 2 Point Value = 3 Point Value = 5 Age 41-60 Minor surgery BMI > 25 kg/m2 Swollen legs Varicose veins or History of unexplained or recurrent spontaneous Oral contraceptives or hormone replacement Sepsis (< 1 month) Serious lung disease, including pneumonia (< 1 month) Abnormal pulmonary function Acute myocardial infarction Congestive heart failure (< 1 month) History of inflammatory bowel disease Medical patient at bed rest Age 61-74 Arthroscopic surgery Major open surgery (> 45 min) Laparoscopic surgery (> 45 min) Malignancy Confined to bed (> 72 hours) Immobilizing plaster cast Central venous access Age >= 75 History of VTE Family history of VTE Factor V Leiden Prothrombin [id number] Lupus anticoagulant Anticardiolipin antibodies Elevated serum homocysteine Heparin-induced thrombocytopenia Other congenital or acquired thrombophilia Stroke (< 1 month) Elective arthroplasty Hip, pelvis, or leg fracture Acute spinal cord injury (< 1 month) Prophylaxis Regimen Total Risk Factor Score Risk Level Prophylaxis Regimen 0-1 Low Early ambulation 2 Moderate Order ONE of the following: *Sequential Compression Device (SCD) *Heparin 5000 units SQ BID 3-4 Higher Order ONE of the following medications: *Heparin 5000 units SQ TID *Enoxaparin/Lovenox 40 mg SQ daily (WT < 150 kg, CrCl > 30 mL/min) *Enoxaparin/Lovenox 30 mg SQ daily (WT < 150 kg, CrCl > 10-29 mL/min) *Enoxaparin/Lovenox 30 mg SQ BID (WT < 150 kg, CrCl > 30 mL/min) AND/OR *Sequential Compression Device (SCD) 5 or more Highest Order ONE of the following medications: *Heparin 5000 units SQ TID (Preferred with Epidurals) *Enoxaparin/Lovenox 40 mg SQ daily (WT < 150 kg, CrCl > 30 mL/min) *Enoxaparin/Lovenox 30 mg SQ daily (WT < 150 kg, CrCl > 10-29 mL/min) *Enoxaparin/Lovenox 30 mg SQ BID (WT < 150 kg, CrCl > 30 mL/min) AND *Sequential Compression Device (SCD) Assessment and Plan Assessment and Plan Impression: GI bleed Extensively nausea and vomiting negative secondary to GI bleed With history of recent fall/on aspirin at home, which need to rule out ICP/CVA. Hypertensive urgency now resolved. Patient received several doses of and EKG Echo in a.m. Serial cardiac enzymes and EKGs now. Stat H&H. GI consult. Plan: Physician Certification Order for Inpatient Services The services are ordered in accordance with Medicare regulations or non- Medicare payer requirements, as applicable. In the case of services not specified as inpatient-only, they are appropriately provided as inpatient services in accordance with the 2-midnight benchmark. days is the estimated time the patient will need to remain in the hospital, assuming treatment plan goals are met and no additional complications. iGo Aldridge MD Jan 29, 2017 05:45
[2017-01-29] MEDS ORDERED: GLUCAGON 1 MG/ML VIAL OTHER PRN ×2 (06:00→08:30)
[2017-01-29] MEDS ORDERED: DEXTROSE 50% IN WATER 50 ML VIAL(D50) IV PUSH PRN ×2 (06:00→08:30)
[2017-01-29] MEDS ORDERED: POTASSIUM CHLOR 20 MEQ PREMIX 100 ML IV SCH (06:00)
[2017-01-29] MEDS ORDERED: DEXT 5%-NACL 0.45% 1000 ML INJ 1,000 ML IV SCH (06:00)
[2017-01-29 06:20] LABS: CREATINE KINASE 95 U/L (26-192)
--- NOTE | 2017-01-29 06:39 | RADRPT ---
EXAM DATE/TIME: 01/29/2017 06:29 [facility] COMPARISON: CT BRAIN W/O CONTRAST, January 27, 2017, 19:10. INDICATIONS : Elevated blood pressure. Recent head trauma 3 days ago. RADIATION DOSE: 33.57 CTDIvol (mGy) MEDICAL HISTORY : Hypertension. SURGICAL HISTORY : Hysterectomy. ENCOUNTER: Initial ACUITY: 2 days PAIN SCALE: 0/10 LOCATION: cranial TECHNIQUE: Multiple contiguous axial images were obtained of the head. Using automated exposure control and adj ustment of the mA and/or kV according to patient size, radiation dose was kept as low as reasonably a chievable to obtain optimal diagnostic quality images. DICOM format image data is available electro nically for review and comparison. FINDINGS: CEREBRUM: The ventricles are normal for age. No evidence of midline shift, mass lesion, hemorrhage or acute in farction. No extra-axial fluid collections are seen. POSTERIOR FOSSA: The cerebellum and brainstem are intact. The 4th ventricle is midline. The cerebellopontine angle i s unremarkable. EXTRACRANIAL: The visualized portion of the orbits is intact. SKULL: The calvaria is intact. No evidence of skull fracture. CONCLUSION: Negative trauma CT with no evidence of hemorrhage. Ajith Tate MD on January 29, 2017 at 6:36 Board Certified Radiologist. This report was verified electronically.
[2017-01-29] MEDS ORDERED: PANTOPRAZOLE INJ 80 MG in SODIUM CHLORIDE 0.9% INJ 35 ML IV ONE (06:51)
--- NOTE | 2017-01-29 08:27 | HHI.PR ---
Subjective Remarks f/u; a-fib in no acute distress. complaining of nausea. had some hematemesis last night. HR trend noted; seem to be in a-fib on the monitor. d/w the RN. Objective Vitals Vital Signs Date Time Temp Pulse Resp B/P (MAP) Pulse Ox O2 Delivery O2 Flow Rate FiO2 01/29/17 06:00 149 01/29/17 02:25 91 16 174/86 (115) 96 Room Air 01/29/17 01:50 221/104 (143) 01/29/17 01:20 72 16 214/109 (144) 96 Room Air 01/28/17 23:44 72 16 188/84 (118) Room Air 01/28/17 23:04 96 Room Air 01/28/17 23:03 73 16 172/81 (111) 98 Room Air 01/28/17 22:34 200/109 (139) 01/28/17 21:48 230/107 (148) 01/28/17 19:55 178/119 (138) 01/28/17 15:40 98.5 69 16 173/82 (112) 93 I/O 01/28/17 01/28/17 01/28/17 01/29/17 01/29/17 01/29/17 07:00 15:00 23:00 07:00 15:00 23:00 Intake Total 50 ml Output Total 40 ml Balance 10 ml Intake Oral 50 ml Output Urine Total 0 ml Emesis 40 ml # Bowel Movements 0 Result Diagram: 01/29/17 0411 01/29/17 0411 Imaging Last Impressions Head CT 01/29/17 0000 Signed Impressions: Service Date/Time: January 06:29 - CONCLUSION: Negative trauma CT with no evidence of hemorrhage. Ajith Tate MD Abdomen/Pelvis CT 01/28/17 0000 Signed Impressions: Service Date/Time: Saturday, January 28, 2017 20:28 - CONCLUSION: 1. Fatty liver. 2. 5.7 x 3.5 cm cystic lesion within the right hemipelvis posteriorly. Outpatient ultrasound of the pelvis may be helpful for further characterization of this finding if clinically indicated. 3. Posterior bibasilar atelectasis. 4. Degenerative changes and scoliosis of the thoracolumbar spine. Prince Allen MD Objective Remarks GENERAL: This is a well-nourished, well-developed patient, in no apparent distress. CARDIOVASCULAR: tachycardic with irregular rhythm without murmurs, gallops, or rubs. RESPIRATORY: Clear to auscultation. Breath sounds equal bilaterally. No wheezes , rales, or rhonchi. GASTROINTESTINAL: Abdomen soft, non-tender, nondistended. Normal, active bowel sounds MUSCULOSKELETAL: Extremities without clubbing, cyanosis, or edema. NEURO: Alert & Oriented x4 to person, place, time, situation. Moves all ext x4 Medications and IVs Current Medications Ondansetron HCl (Zofran Inj) 4 mg ONCE ONCE IVP Last administered on 19:03; Start 01/28/17 at 18:00; Stop 01/28/17 at 18:01; Status DC Sodium Chloride (NS Flush) 2 ml UNSCH PRN IV FLUSH FLUSH AFTER USING IV ACCESS Last administered on 01/28/17 19:03; Start 01/28/17 at 18:00 Sodium Chloride 500 ml @ 500 mls/hr BOLUS ONCE IV Last administered on 20:17; Start 01/28/17 at 20:00; Stop 01/28/17 at 20:59; Status DC Metoclopramide HCl (Reglan Inj) 10 mg ONCE ONCE IV PUSH Last administered on 01/28/17 20:18; Start 01/28/17 at 20:00; Stop 01/28/17 at 20:01; Status DC Metoprolol Tartrate (Lopressor) 25 mg ONCE ONCE PO Last administered on 20:54; Start 01/28/17 at 20:15; Stop 01/28/17 at 20:16; Status DC Ondansetron HCl (Zofran Inj) 4 mg ONCE ONCE IV PUSH Last administered on 20:56; Start 01/28/17 at 21:00; Stop 01/28/17 at 21:01; Status DC Iohexol (Omnipaque 350 Inj) 97 ml STK-MED ONCE IVCONTRAST Last administered on 01/28/17 20:49; Start 01/28/17 at 20:49; Stop 01/28/17 at 20:50; Status DC Hydralazine HCl (Apresoline Inj) 10 mg ONCE ONCE IV PUSH Last administered on 01/28/17 22:05; Start 01/28/17 at 22:00; Stop 01/28/17 at 22:01; Status DC Sodium Chloride (NS Flush) 2 ml UNSCH PRN IV FLUSH FLUSH AFTER USING IV ACCESS ; Start 01/28/17 at 22:15 Sodium Chloride (NS Flush) 2 ml BID IV FLUSH ; Start 01/29/17 at 09:00 Naloxone HCl (Narcan Inj) 0.4 mg UNSCH PRN IV PUSH SEE LABEL COMMENTS; Start 01/28/17 at 22:15 Enalaprilat (Vasotec Inj) 2.5 mg Q6H PRN IV PUSH BP>160/90 Last administered on 01/29/17 04:53; Start 01/28/17 at 22:15 Hydralazine HCl (Apresoline Inj) 10 mg Q30M PRN IV PUSH bp>160/90 Last administered on 01/29/17 04:53; Start 01/29/17 at 02:15; Stop 01/29/17 at 05:33 ; Status DC Promethazine HCl (Phenergan Inj) 12.5 mg Q4H PRN IM nausea not relieved by zofran Last administered on 01/29/17 02:24; Start 01/29/17 at 02:15 Miscellaneous Information Patient in critical care unit? Ass... [id number] ; Start 01/29/17 at 04:45 Chlorhexidine Gluconate (Chlorhexidine 2% Cloth) 3 pack DAILY@04 TOPICAL ; Start 01/30/17 at 04:00; Stop 02/03/17 at 04:01 Chlorhexidine Gluconate (Chlorhexidine 2% Cloth) 3 pack UNSCH PRN TOPICAL HYGIENIC CARE; Start 01/29/17 at 04:45; Stop 02/03/17 at 04:40 Ondansetron HCl (Zofran Inj) 4 mg Q6HR PRN IV PUSH nausea Last administered on 01/29/17 05:43; Start 01/29/17 at 05:45 Pantoprazole Sodium 80 mg/ Sodium Chloride 35 ml @ 420 mls/hr Q5M ONCE IV ; Start 01/29/17 at 06:51; Stop 12/7/17 at 06:55; Status DC Pantoprazole Sodium 80 mg/ Sodium Chloride 100 ml @ 10 mls/hr Q10H IV ; Start 01/29/17 at 07:00 Potassium Chloride 100 ml @ 50 mls/hr Q2H IV ; Start 01/29/17 at 06:00; Stop 01/29/17 at 09:59 Dextrose/Sodium Chloride 1,000 ml @ 84 mls/hr [id number] IV ; Start 01/29/17 at 06 :00 Dextrose (D50w (Vial) Inj) 50 ml UNSCH PRN IV PUSH HYPOGLYCEMIA-SEE COMMENTS; Start 01/29/17 at 06:00 Glucagon (Glucagon Inj) 1 mg UNSCH PRN OTHER HYPOGLYCEMIA-SEE COMMENTS; Start 01/29/17 at 06:00 Pneumococcal Polyvalent Vaccine (Pneumovax-23 Inj) 25 mcg ONCE ONCE IM ; Start 01/30/17 at 09:00; Stop 01/30/17 at 09:01 Influenza Virus Vaccine (Flu (Quadrivalent) Vaccine Inj) 0.5 ml ONCE ONCE IM ; Start 01/30/17 at 09:00; Stop 01/30/17 at 09:01 A/P Assessment and Plan A/P -GI bleed with persistent nausea/vomiting continue with Protonix and antiemetics as needed- continue to monitor H/H- GI consulted. - tachycardic - seems to be atrial fibrillation with RVR- check EKG- resume metoprolol- check echo and consider cardiology consult. -hypertension; not well controlled- resume metoprolol- will monitor and adjust the regimen as needed. -diabetes mellitus; accu-check with SSI -DVT prophylaxis; SCD's- no chemical prophylaxis due to GI bleed. Girma Julian MD Jan 29, 2017 08:27
[2017-01-29] MEDS: METOPROLOL TARTRATE 25 MG TAB PO SCH ×2 (09:44→19:58)
[2017-01-29] MEDS: SODIUM CHLOR 0.9% 1000 ML INJ 1,000 ML IV SCH (09:44)
[2017-01-29] MEDS: SODIUM CHLORIDE 0.9% FLUSH 10 ML FLUSH IV FLUSH SCH ×2 (09:44→19:58)
[2017-01-29] MEDS: PANTOPRAZOLE INJ 80 MG in SODIUM CHLORIDE 0.9% INJ 100 ML IV SCH ×2 (09:45→17:46)
[2017-01-29] MEDS ORDERED: DILTIAZEM HCL 25 MG/5 ML VIAL IV ONE (10:00)
--- NOTE | 2017-01-29 10:32 | PD.CONS ---
HPI Consult Requested By Primary Care Physician Unknown History of Present Illness 86-year-old female with PMH of HTN, GERD, DM type 2 presents to the ED for evaluation of high blood pressure. Patient states that she was recently seen in the ED for high blood pressure and told to return to return if her blood pressure was high again. She states that she took a dose of clonidine and her blood pressure is improved. She complains of approximately 24-hour history of upper left abdominal pain with nausea and vomiting. She endorses anorexia. She denies hematemesis. She denies fever, chills, headache, dizziness chest pain, palpitations, constipation, diarrhea, melena, hematochezia, dysuria. Cardiology consulted for new onset Atrial fibrillation with RVR. Review of Systems Consitutional: DENIES: Fatigue, Fever, Chills, Weight gain, Weight loss Eyes: DENIES: Amaurosis Fugax, Change in vision HEENT: DENIES: Lightheadedness, Change in hearing Respiratory: DENIES: See HPI, Cough, Snoring, Shortness of breath, Wheezing, Sputum production Cardiovascular: DENIES: See HPI, Chest pain, Palpitations, Syncope, Tachycardia Gastrointestinal: COMPLAINS OF: Vomiting, DENIES: Nausea, Change in bowel habits, Reflux, Bloody stools, Melena Genitourinary: DENIES: Urinary incontinence, Difficulty voiding Integumentary: DENIES: Rash Neurologic: DENIES: Tingling or numbness, Memory problems, Poor Balance, Stroke symptoms Musculoskeletal: DENIES: Joint pain, Muscle pain, Limited range of motion, Back pain Psychiatric: DENIES: Anxiety, Depression, Sleep disturbances Hematologic: DENIES: Bruising tendencies, Bleeding tendencies Endocrine: DENIES: Weight gain, Weight loss, Thyroid disease Past Family Social History Allergies: Coded Allergies: No Known Allergies (Verified Allergy, Unknown, 01/28/17) Past Medical History High Cholesterol Diabetes GERD Hypertension Past Surgical History Section: Genitourinary Surgery Hysterectomy Reported Medications Reported Meds & Active Scripts Active Macrodantin (Nitrofurantoin Macrocrystal) 100 Mg Cap 100 Mg PO BID 5 Days Clonidine (Clonidine HCl) 0.1 Mg Tab 0.1 Mg PO BID PRN Reported Lisinopril 5 Mg Tab 5 Mg PO DAILY Norvasc (Amlodipine Besylate) 10 Mg Tab 10 Mg PO DAILY Neurontin (Gabapentin) 100 Mg Cap 100 Mg PO HS Zocor (Simvastatin) 20 Mg Tab 20 Mg PO HS Claritin (Loratadine) 10 Mg Tablet 10 Mg PO DAILY Aldactone (Spironolactone) 25 Mg Tab 25 Mg PO DAILY Metoprolol Tartrate 25 Mg Tab 25 Mg PO BID Metformin (Metformin HCl) 500 Mg Tab 500 Mg PO BID With Meals Glipizide 5 Mg Tab 2.5 Mg PO DAILY Take 30 minutes before a meal Alpha Lipoic Acid 200 Mg Cap 600 Mg PO DAILY Vitamin D-3 (Cholecalciferol) 1,000 Unit Cap 1,000 Units PO DAILY Aspirin 325 Mg Tab 325 Mg PO DAILY Fish Oil Triple Strength 1400 mg ([place]-3 Fatty Acids) 900 Mg (253 Mg-647 Mg)-1, 400 Mg Cap 1,400 Mg PO DAILY Move Free Joint Health Ad (Yyjigghmwdt-Ysvpkvfmnmi-Clpbdw) 750 Mg-100 Mg-1.65 Mg -108 Mg Tab 1 Tab PO DAILY Multiple Vitamin 1 Tab 1 Tab PO DAILY Active Ordered Medications Current Medications Medications (Trade) Dose Ordered Sig/Amy Route Start Time Stop Time Status Last Admin (NS Flush) 2 ml UNSCH PRN IV FLUSH 01/28/17 22:15 (NS Flush) 2 ml BID IV FLUSH 01/29/17 09:00 01/29/17 09:44 (Narcan Inj) 0.4 mg UNSCH PRN IV PUSH 01/28/17 22:15 (Vasotec Inj) 2.5 mg Q6H PRN IV PUSH 01/28/17 22:15 01/29/17 04:53 (Phenergan Inj) 12.5 mg Q4H PRN IM 01/29/17 02:15 01/29/17 09:45 Miscellaneous Information Patient in critical care unit? Ass... [id number] .XX 01/29/17 04:45 (Chlorhexidine 2% Cloth) 3 pack DAILY@04 TOPICAL 01/30/17 04:00 02/03/17 04:01 (Chlorhexidine 2% Cloth) 3 pack UNSCH PRN TOPICAL 01/29/17 04:45 02/03/17 04:40 (Zofran Inj) 4 mg Q6HR PRN IV PUSH 01/29/17 05:45 01/29/17 05:43 Pantoprazole Sodium 80 mg/ Sodium Chloride 100 ml @ 10 mls/hr Q10H IV 01/29/17 07:00 01/29/17 09:45 (Pneumovax-23 Inj) 25 mcg ONCE ONCE IM 01/30/17 09:00 01/30/17 09:01 (Flu (Quadrivalent) Vaccine Inj) 0.5 ml ONCE ONCE IM 01/30/17 09:00 01/30/17 09:01 (Lopressor) 25 mg BID PO 01/29/17 09:00 01/29/17 09:44 Sodium Chloride 1,000 ml @ 75 mls/hr [id number] IV 01/29/17 08:30 01/29/17 09:44 (D50w (Vial) Inj) 50 ml UNSCH PRN IV PUSH 01/29/17 08:30 (Glucagon Inj) 1 mg UNSCH PRN OTHER 01/29/17 08:30 (NovoLOG SUPPLEMENTAL SCALE) 1 ACHS SLIDING SCALE SQ 01/29/17 12:00 Social History Alcohol Use: No Tobacco Use: No Substance Use: No Physical Exam Vital Signs Vital Signs Date Time Temp Pulse Resp B/P (MAP) Pulse Ox O2 Delivery O2 Flow Rate FiO2 01/29/17 06:00 149 01/29/17 06:00 98.5 149 26 100/62 (75) 90 01/29/17 02:25 91 16 174/86 (115) 96 Room Air 01/29/17 01:50 221/104 (143) 01/29/17 01:20 72 16 214/109 (144) 96 Room Air 01/28/17 23:44 72 16 188/84 (118) Room Air 01/28/17 23:04 96 Room Air 01/28/17 23:03 73 16 172/81 (111) 98 Room Air 01/28/17 22:34 200/109 (139) 01/28/17 21:48 230/107 (148) 01/28/17 19:55 178/119 (138) 01/28/17 15:40 98.5 69 16 173/82 (112) 93 Physical Exam GENERAL: Well-nourished, well-developed patient. SKIN: Warm and dry. HEAD: Normocephalic. EYES: No scleral icterus. No injection or drainage. NECK: Supple, trachea midline. No JVD or lymphadenopathy. CARDIOVASCULAR: Irr Irr without murmurs, gallops, or rubs. RESPIRATORY: Breath sounds equal bilaterally. No accessory muscle use. GASTROINTESTINAL: Abdomen soft, non-tender, nondistended. EXTREMITIES: No cyanosis, or edema. NEUROLOGICAL: Awake, alert, and oriented x 3. Non-focal. Laboratory Laboratory Tests Test 01/28/17 18:48 01/29/17 04:11 01/29/17 06:47 White Blood Count 10.1 12.7 Red Blood Count 4.02 4.36 Hemoglobin 11.9 12.6 Hematocrit 34.8 37.6 Mean Corpuscular Volume 86.7 86.1 Mean Corpuscular Hemoglobin 29.5 29.0 Mean Corpuscular Hemoglobin Concent 34.0 33.7 Red Cell Distribution Width 13.8 14.1 Platelet Count 234 275 Mean Platelet Volume 8.0 8.0 Neutrophils (%) (Auto) 73.9 75.3 Lymphocytes (%) (Auto) 18.2 18.4 Monocytes (%) (Auto) 5.8 5.8 Eosinophils (%) (Auto) 1.8 0.2 Basophils (%) (Auto) 0.3 0.3 Neutrophils # (Auto) 7.4 9.5 Lymphocytes # (Auto) 1.8 2.3 Monocytes # (Auto) 0.6 0.7 Eosinophils # (Auto) 0.2 0.0 Basophils # (Auto) 0.0 0.0 CBC Comment DIFF FINAL DIFF FINAL Differential Comment Blood Urea Nitrogen 25 24 Creatinine 0.91 0.87 Random Glucose 121 130 Total Protein 7.6 Albumin 3.8 Calcium Level 9.7 9.0 Alkaline Phosphatase 53 Aspartate Amino Transf (AST/SGOT) 20 Alanine Aminotransferase (ALT/SGPT) 28 Total Bilirubin 0.5 Sodium Level 137 135 Potassium Level 4.7 3.4 Chloride Level 99 100 Carbon Dioxide Level 31.2 25.5 Anion Gap 7 10 Estimat Glomerular Filtration Rate 59 62 Lactic Acid Level 1.6 Lipase 402 373 Total Creatine Kinase 95 Troponin I LESS THAN 0.02 Nasal Screen MRSA (PCR) MRSA NOT DETECTED Result Diagram: 01/29/1741001/29/17410 Imaging Last Impressions Head CT 01/29/17 0000 Signed Impressions: Service Date/Time: January 06:29 - CONCLUSION: Negative trauma CT with no evidence of hemorrhage. Ajith Tate MD Abdomen/Pelvis CT 01/28/17 0000 Signed Impressions: Service Date/Time: Saturday, January 28, 2017 20:28 - CONCLUSION: 1. Fatty liver. 2. 5.7 x 3.5 cm cystic lesion within the right hemipelvis posteriorly. Outpatient ultrasound of the pelvis may be helpful for further characterization of this finding if clinically indicated. 3. Posterior bibasilar atelectasis. 4. Degenerative changes and scoliosis of the thoracolumbar spine. Prince Allen MD Assessment and Plan Problem List: (1) Atrial fibrillation ICD Codes: I48.91 - Unspecified atrial fibrillation Plan: New onset afib in the setting of abdominla pain, nausea, vomiting, elevated blood pressure. There is also mention on melena. EKG reveals Afib with RVR, RBBB and nonspecific ST changes. She remains asymptomatic from Afib with RVR. CHADS2 >2 but unfortunately there is a mention with melena for which she would not be a candidate for OAC at this time. Head CT unremarkable. BP controlled. Troponinx 1 negative. Recs: 1. Cycle Cardiac markers x3 Q6H 2. Cardizem bolus 20mg IV x1, if it does not resolved start Cardizem drip 3. No OAC until melena/GI bleeding question address. 4. Cont telemetry monitoring 5. Echo 6. GI consult 7. Cycle H&H (2) Generalized weakness ICD Codes: R53.1 - Weakness Status: Acute (3) Hypertensive urgency ICD Codes: I16.0 - Hypertensive urgency Status: Acute Problem Qualifiers (1) Atrial fibrillation: Qualified Codes: I48.91 - Unspecified atrial fibrillation Arslan Dillard MD Jan 29, 2017 10:32
[2017-01-29] MEDS: INSULIN ASPART SUPPLEMENTAL SCALE SQ SCH ×3 (12:00→21:00)
--- NOTE | 2017-01-29 12:38 | RADRPT ---
EXAM DATE/TIME: 01/29/2017 11:56 [facility] COMPARISON: No previous studies available for comparison. INDICATIONS : CVA. Slurred speech. MEDICAL HISTORY : Hypertension. Diabetes mellitus type 2. SURGICAL HISTORY : Hysterectomy. ENCOUNTER: Initial ACUITY: 1 day PAIN SCORE: 0/10 LOCATION: Head. Please note a normal MRA of the brain does not entirely exclude the possibility of a small aneurysm, nor the possibility of distal intracranial vessel disease. TECHNIQUE: 3D time of flight MRA was performed. Source images, multiplanar STS MIP, and 3D volume MIP reconstru ctions were reviewed. FINDINGS: There is excellent visualization of the major intracranial arteries out to the second-order branch ve ssels. There is no evidence for aneurysm, vessel truncation or stenosis, and no evidence for vascula r malformation. There is however filling defect and probable thrombus in the right M1 segment. Remain ing right MCA is otherwise patent. The anterior tibial arteries, left middle cerebral artery and post erior tibial arteries are normal. No large vessel stenosis. CONCLUSION: 1. Suspect thrombus in the right M1 segment of the middle cerebral artery. Confirmation with CTA of t he brain is recommended. Sadiq Sherwood MD on January 29, 2017 at 12:31 Board Certified Radiologist. This report was verified electronically.
--- NOTE | 2017-01-29 12:40 | RADRPT ---
EXAM DATE/TIME: 01/29/2017 11:56 [facility] COMPARISON: CT BRAIN W/O CONTRAST, January 29, 2017, 6:29. INDICATIONS : CVA. Slurred speech. MEDICAL HISTORY : Hypertension. Diabetes mellitus type 2. SURGICAL HISTORY : Hysterectomy. ENCOUNTER: Initial ACUITY: 1 day PAIN SCORE: 0/10 LOCATION: Head. TECHNIQUE: Multiplanar, multisequence MRI of the brain was performed without contrast. FINDINGS: CEREBRUM: The ventricles are normal for age. No evidence of midline shift, mass lesion, hemorrhage or acute in farction. No extraaxial fluid collections are seen. The pituitary gland and suprasellar cistern are normal in configuration. WHITE MATTER: A few scattered foci of bright T2 signal abnormalities are seen in the white matter. POSTERIOR FOSSA: The cerebellum and brainstem are intact. The 4th ventricle is midline. The cerebellopontine angle is unremarkable. The cerebellar tonsils are normal in position. DIFFUSION IMAGING: No focal areas of restricted diffusion are seen. No evidence of acute infarction. EXTRACRANIAL: The visualized portions of the orbits and paranasal sinuses are unremarkable. CONCLUSION: 1. Minimal nonspecific white matter changes. 2. No acute infarction Sadiq Sherwood MD on January 29, 2017 at 12:37 Board Certified Radiologist. This report was verified electronically.
--- NOTE | 2017-01-29 13:32 | PD.CONS ---
HPI History of Present Illness This is a 86 year old female with DM, HTN who presented with weakness, n/v, coffee ground emesis, epigastric discomfort. She was found to have hypertensive urgency and new onset AF. Onset 1 week ago. Admits 1 episode dark tarry stool. Having epigastric discomfort. Denies red blood in stool, blood thinners, previous GIB, gastric ulcers. Takes Aleve occasionally. never had EGD or colonoscopy. (Kylie Haynes) PFSH Past Medical History htn dm medications non compliance past few days Past Surgical History partial hysterectomy dropped kidney sx (Kylie Haynes) Coded Allergies: No Known Allergies (Verified Allergy, Unknown, 01/28/17) Family History one sister- and one brother- from cancer - all metastasized another sister- parkinsons Social History quit smoking 45yrs ago no etoh abuse no illicit drug use (Kylie Haynes) Review of Systems Constitutional: COMPLAINS OF: Fatigue, DENIES: Fever Eyes: DENIES: Blurred vision Ears, nose, mouth, throat: DENIES: Hearing loss Respiratory: DENIES: Hemoptysis Cardiovascular: DENIES: Chest pain Gastrointestinal: COMPLAINS OF: Abdominal pain, Black stools, Nausea, Vomiting , Hematemesis, DENIES: Bloody stools, Constipation, Diarrhea Genitourinary: DENIES: Hematuria Musculoskeletal: DENIES: Joint Swelling Integumentary: DENIES: Pruritus Hematologic/lymphatic: DENIES: Bruising Neurologic: DENIES: Headache Psychiatric: DENIES: Confusion (Kylie Haynes) GI Exam Vitals I&O Vital Signs Date Time Temp Pulse Resp B/P (MAP) Pulse Ox O2 Delivery O2 Flow Rate FiO2 01/29/17 12:00 98.1 102 22 140/83 (102) 98 01/29/17 12:00 102 01/29/17 10:00 80 01/29/17 08:00 98.6 142 20 121/59 (79) 96 01/29/17 08:00 142 01/29/17 06:00 149 01/29/17 06:00 98.5 149 26 100/62 (75) 90 01/29/17 02:25 91 16 174/86 (115) 96 Room Air 01/29/17 01:50 221/104 (143) 01/29/17 01:20 72 16 214/109 (144) 96 Room Air 01/28/17 23:44 72 16 188/84 (118) Room Air 01/28/17 23:04 96 Room Air 01/28/17 23:03 73 16 172/81 (111) 98 Room Air 01/28/17 22:34 200/109 (139) 01/28/17 21:48 230/107 (148) 01/28/17 19:55 178/119 (138) 01/28/17 15:40 98.5 69 16 173/82 (112) 93 I/O 01/28/17 01/28/17 01/28/17 01/29/17 01/29/17 01/29/17 07:00 15:00 23:00 07:00 15:00 23:00 Intake Total 50 ml 40 ml Output Total 40 ml Balance 10 ml 40 ml Intake Oral 50 ml IV Total 40 ml Output Urine Total 0 ml Emesis 40 ml # Bowel Movements 0 Imaging Last Impressions Head Magnetic Resonance Angiography 01/29/17 0000 Signed Impressions: Service Date/Time: January 11:56 - CONCLUSION: 1. Suspect thrombus in the right M1 segment of the middle cerebral artery. Confirmation with CTA of the brain is recommended. Sadiq Sherwood MD Head CT 01/29/17 0000 Signed Impressions: Service Date/Time: January 06:29 - CONCLUSION: Negative trauma CT with no evidence of hemorrhage. Ajith Tate MD Brain MRI 01/29/17 0000 Signed Impressions: Service Date/Time: January 11:56 - CONCLUSION: 1. Minimal nonspecific white matter changes. 2. No acute infarction Sadiq Sherwood MD Abdomen/Pelvis CT 01/28/17 0000 Signed Impressions: Service Date/Time: Saturday, January 28, 2017 20:28 - CONCLUSION: 1. Fatty liver. 2. 5.7 x 3.5 cm cystic lesion within the right hemipelvis posteriorly. Outpatient ultrasound of the pelvis may be helpful for further characterization of this finding if clinically indicated. 3. Posterior bibasilar atelectasis. 4. Degenerative changes and scoliosis of the thoracolumbar spine. Prince Allen MD Laboratory Test 01/28/17 18:48 01/29/17 04:11 01/29/17 06:47 White Blood Count 10.1 TH/MM3 12.7 TH/MM3 Red Blood Count 4.02 MIL/MM3 4.36 MIL/MM3 Hemoglobin 11.9 GM/DL 12.6 GM/DL Hematocrit 34.8 % 37.6 % Mean Corpuscular Volume 86.7 FL 86.1 FL Mean Corpuscular Hemoglobin 29.5 PG 29.0 PG Mean Corpuscular Hemoglobin Concent 34.0 % 33.7 % Red Cell Distribution Width 13.8 % 14.1 % Platelet Count 234 TH/MM3 275 TH/MM3 Mean Platelet Volume 8.0 FL 8.0 FL Neutrophils (%) (Auto) 73.9 % 75.3 % Lymphocytes (%) (Auto) 18.2 % 18.4 % Monocytes (%) (Auto) 5.8 % 5.8 % Eosinophils (%) (Auto) 1.8 % 0.2 % Basophils (%) (Auto) 0.3 % 0.3 % Neutrophils # (Auto) 7.4 TH/MM3 9.5 TH/MM3 Lymphocytes # (Auto) 1.8 TH/MM3 2.3 TH/MM3 Monocytes # (Auto) 0.6 TH/MM3 0.7 TH/MM3 Eosinophils # (Auto) 0.2 TH/MM3 0.0 TH/MM3 Basophils # (Auto) 0.0 TH/MM3 0.0 TH/MM3 CBC Comment DIFF FINAL DIFF FINAL Differential Comment Blood Urea Nitrogen 25 MG/DL 24 MG/DL Creatinine 0.91 MG/DL 0.87 MG/DL Random Glucose 121 MG/DL 130 MG/DL Total Protein 7.6 GM/DL Albumin 3.8 GM/DL Calcium Level 9.7 MG/DL 9.0 MG/DL Alkaline Phosphatase 53 U/L Aspartate Amino Transf (AST/SGOT) 20 U/L Alanine Aminotransferase (ALT/SGPT) 28 U/L Total Bilirubin 0.5 MG/DL Sodium Level 137 MEQ/L 135 MEQ/L Potassium Level 4.7 MEQ/L 3.4 MEQ/L Chloride Level 99 MEQ/L 100 MEQ/L Carbon Dioxide Level 31.2 MEQ/L 25.5 MEQ/L Anion Gap 7 MEQ/L 10 MEQ/L Estimat Glomerular Filtration Rate 59 ML/MIN 62 ML/MIN Lactic Acid Level 1.6 mmol/L Lipase 402 U/L 373 U/L Total Creatine Kinase 95 U/L Troponin I LESS THAN 0.02 NG/ML Nasal Screen MRSA (PCR) MRSA NOT DETECTED Physical Examination HEENT: PERRL; normocephalic; atraumatic; no jaundice. CHEST: CTA CARDIAC: RRR ABDOMEN: Soft, nondistended, mild upper quadrant TTP no hepatosplenomegaly; bowel sounds are present in all four quadrants. EXTREMITIES: No clubbing, cyanosis, or edema. SKIN: Normal; no rash; no jaundice. LUMP INSPECTOR: No focal deficits; alert and oriented times three. (Kylie Haynes) Assessment and Plan Plan ASSESSMENT - N/V with CGE, epigastric discomfort, 1 x episode melanotic stool - onset 1 week ago. poss UGIB. HH WNL currenlty. never had EGD or colonoscopy, hx GIB PLAN - EGD in am - obtain consent - NPO after midnight - clear liquid diet per pt request - monitor HH - consider colonoscopy as outpt - further recs to follow this pt seen by myself and Dr plata and this note is written on his behalf (Kylie Haynes) Physician Comments Seen and examined with PANCHITO, egd planned for tomorrow. Needs colonoscopy at a later time. Discussed with pt. and family at bedside. Thank you (Nkechi Plata MD) Kylie Haynes Jan 29, 2017 13:32 Nkechi Plata MD Jan 29, 2017 15:42
[2017-01-29] MEDS ORDERED: DILTIAZEM HCL 25 MG/5 ML VIAL IV PUSH ONE (14:00)
[2017-01-29] MEDS: SODIUM CHLORIDE 0.9% FLUSH 10 ML FLUSH IV FLUSH PRN (14:08)
[2017-01-29] MEDS: DILTIAZEM HCL 30 MG TAB PO SCH ×3 (14:08→19:58)
[2017-01-29] MEDS ORDERED: DILTIAZEM 125 MG/NS 100 ML IV PRN ×2 (15:00)
--- NOTE | 2017-01-29 16:45 | EKG ---
Date Performed: 01/28/2017 Time Performed: 21:40:03 PTAGE: 86 years EKG: Sinus rhythm WITH FIRST DEGREE AV BLOCK WITH OCCASIONAL SUPRAVENTRICULAR PREMATURE COMPLEXES MARKED LEFT AXIS DEV IATION POSSIBLE RIGHT VENTRICULAR CONDUCTION DELAY NONSPECIFIC T-WAVE ABNORMALITY ABNORMAL ECG Since PREVIOUS TRACING , no significant change noted PREVIOUS TRACIN01/27/2017 17.21.16 DOCTOR: Javi aL Interpretating Date/Time 01/29/2017 16:43:52
--- NOTE | 2017-01-29 16:45 | EKG ---
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
[2017-01-29] MEDS ORDERED: IOHEXOL 350 MG/ML 10 ML VIAL (for RAD DIAG) IVCONTRAST ONE (20:48)
--- NOTE | 2017-01-29 21:13 | RADRPT ---
EXAM DATE/TIME: 01/29/2017 20:24 [facility] COMPARISON: MRA BRAIN W/O CONTRAST, January 29, 2017, 11:56. INDICATIONS : Abnormal MRA. Evaluate thrombosis. IV CONTRAST: 80 cc Omnipaque 350 (iohexol) IV ; Cumulative dose for multiple exams. RADIATION DOSE: 22.89 CTDIvol (mGy) ; Combined studies MEDICAL HISTORY : Cardiovascular disease. Hypertension. Diabetes mellitus type 1. SURGICAL HISTORY : Hysterectomy. ENCOUNTER: Initial ACUITY: 1 day PAIN SCALE: 0/10 LOCATION: cranial TECHNIQUE: Volumetric scanning was performed using a multi-row detector CT scanner. The data was post processed with a variety of visualization algorithms including full volume maximum intensity projection, multi -planar sliding thin slab reformation, curved planar reformation, and surface rendering techniques. Using automated exposure control and adjustment of the mA and/or kV according to patient size, radiat ion dose was kept as low as reasonably achievable to obtain optimal diagnostic quality images. DICO M format image data is available electronically for review and comparison. FINDINGS: Anterior circulation: Decreased signal noted in the right M1 segment does not correspond to a focal intraluminal filling de fect on CT exam. Suspect this is due to tortuosity in this segment. Distal intracranial internal colvin tid arteries are patent with flow extending to the middle and anterior cerebral arteries. There is no evidence for aneurysm, vessel truncation or stenosis, and no evidence for vascular malformation. Posterior circulation: Symmetric distal vertebral arteries with flow extending to basilar artery. There is no evidence for aneurysm, vessel truncation or stenosis, and no evidence for vascular malformation. CONCLUSION: 1. Decreased signal in the right M1 segment noted on MRA exam does not correspond to the focal abnorm ality on CT exam and likely reflects tortuosity. 2. Unremarkable CTA examination of the head. Specifically, no evidence for large vessel occlusion or aneurysm. Tomasz Farmer MD on January 29, 2017 at 21:08 Board Certified Radiologist. This report was verified electronically.
--- NOTE | 2017-01-29 22:21 | RADRPT ---
EXAM DATE/TIME: 01/29/2017 20:24 [facility] COMPARISON: CTA BRAIN W 3D RECON, January 29, 2017, 20:24. INDICATIONS : Abnormal MRA. Evaluate thrombosis. IV CONTRAST: 80 cc Omnipaque 350 (iohexol) IV ; Cumulative dose for multiple exams. RADIATION DOSE: 22.89 CTDIvol (mGy) ; Combined studies MEDICAL HISTORY : Cardiovascular disease. Hypertension. Diabetes mellitus type 1. SURGICAL HISTORY : Hysterectomy. ENCOUNTER: Initial ACUITY: 1 day PAIN SCALE: 0/10 LOCATION: cranial Elevated flow velocities and ICA/CCA ratios have been found to correlate with increased degrees of vessel stenosis, calculated as percentage of diameter relative to a normal segment of distal ICA/CCA. TECHNIQUE: Volumetric scanning was performed using a multirow detector CT scanner. The data was post processed with a variety of visualization algorithms including full-volume maximum intensity pro jection, multiplanar sliding thin-slab reformation, curved-planar reformation, and surface-rendering techniques. Using automated exposure control and adjustment of the mA and/or kV according to patient size, radiation dose was kept as low as reasonably achievable to obtain optimal diagnostic quality i mages. DICOM format image data is available electronically for review and comparison. FINDINGS: AORTIC ARCH: There is a bovine arch. No evidence of ostial narrowing. RIGHT CAROTID: The common carotid artery is intact. The carotid bulb has a normal configuration w ithout ulceration or narrowing. The internal carotid artery lumen is smooth without stenosis. The ex ternal carotid artery is intact. LEFT CAROTID: There is minimal focal stenosis involving the origin of the left common carotid art alva. The carotid bulb has a normal configuration without ulceration or narrowing. The internal carot id artery lumen is smooth without stenosis. The external carotid artery is intact. VERTEBRALS: The vertebral arteries have a symmetric diameter. No stenotic lesions are seen. CONCLUSION: 1. Minimal focal stenosis involving the origin of the left common carotid artery. 2. Bovine arch. 3. No significant stenosis or occlusion of the internal carotid arteries. 4. Extensive spondylosis, multilevel spinal stenoses and bilateral foraminal narrowing are noted with in the cervical spine. Prince Allen MD on January 29, 2017 at 22:13 Board Certified Radiologist. This report was verified electronically.
[2017-01-30] VITALS (22 sets, daily range): BP systolic 133–165; BP diastolic 67–84; PULSE 68–107; RESP 18–29; TEMP 97.7–99; O2SAT 80–97
[2017-01-30] MEDS: SODIUM CHLOR 0.9% 1000 ML INJ 1,000 ML IV SCH ×2 (01:05→12:37)
[2017-01-30] MEDS: CHLORHEXIDINE GLUCONATE 2 % 1 PACK (2 CLOTHS)(taper/protocol) TOPICAL SCH (04:00)
[2017-01-30] MEDS: ENALAPRILAT 2.5 MG/2 ML VIAL IV PUSH PRN (04:34)
[2017-01-30] MEDS: PANTOPRAZOLE INJ 80 MG in SODIUM CHLORIDE 0.9% INJ 100 ML IV SCH ×2 (05:27→15:28)
--- NOTE | 2017-01-30 07:47 | HHI.PR ---
Subjective Remarks f/u; GI bleed/ a-fib in no acute distress. feels better today. nausea has improved. HR trend noted and still at times tachycardic. no further GI bleed. Objective Vitals Vital Signs Date Time Temp Pulse Resp B/P (MAP) Pulse Ox O2 Delivery O2 Flow Rate FiO2 01/30/17 06:00 101 01/30/17 04:00 89 01/30/17 04:00 98.3 89 23 160/71 (100) 95 01/30/17 02:00 90 01/30/17 00:00 99.0 82 29 133/68 (89) 95 01/30/17 00:00 82 01/29/17 22:00 103 01/29/17 20:00 94 01/29/17 20:00 98.5 94 31 127/75 (92) 88 01/29/17 18:00 96 01/29/17 16:00 98.3 91 24 139/78 (98) 94 01/29/17 16:00 91 01/29/17 14:00 91 01/29/17 12:00 98.1 102 22 140/83 (102) 98 01/29/17 12:00 102 01/29/17 10:00 80 01/29/17 08:00 98.6 142 20 121/59 (79) 96 01/29/17 08:00 142 I/O 01/29/17 01/29/17 01/29/17 01/30/17 01/30/17 01/30/17 07:00 15:00 23:00 07:00 15:00 23:00 Intake Total 50 ml 40 ml 734 ml 525 ml Output Total 40 ml 450 ml 1100 ml Balance 10 ml 40 ml 284 ml -575 ml Intake Oral 50 ml IV Total 40 ml 734 ml 525 ml Output Urine Total 0 ml 450 ml 1100 ml Emesis 40 ml # Voids 2 3 # Bowel Movements 0 0 0 Result Diagram: 01/29/17 0411 01/29/17 0411 Imaging Last Impressions Neck CTA 01/29/17 0000 Signed Impressions: Service Date/Time: January 20:24 - CONCLUSION: 1. Minimal focal stenosis involving the origin of the left common carotid artery. 2. Bovine arch. 3. No significant stenosis or occlusion of the internal carotid arteries. 4. Extensive spondylosis, multilevel spinal stenoses and bilateral foraminal narrowing are noted within the cervical spine. Prince Allen MD Head Magnetic Resonance Angiography 01/29/17 Signed Impressions: Service Date/Time: January 11:56 - CONCLUSION: 1. Suspect thrombus in the right M1 segment of the middle cerebral artery. Confirmation with CTA of the brain is recommended. Sadiq Sherwood MD Head CTA 01/29/17 Signed Impressions: Service Date/Time: January 20:24 - CONCLUSION: 1. Decreased signal in the right M1 segment noted on MRA exam does not correspond to the focal abnormality on CT exam and likely reflects tortuosity. 2. Unremarkable CTA examination of the head. Specifically, no evidence for large vessel occlusion or aneurysm. Tomasz Farmer MD Head CT 01/29/17 Signed Impressions: Service Date/Time: January 06:29 - CONCLUSION: Negative trauma CT with no evidence of hemorrhage. Ajith Tate MD Brain MRI 01/29/17 Signed Impressions: Service Date/Time: January 11:56 - CONCLUSION: 1. Minimal nonspecific white matter changes. 2. No acute infarction Sadiq Sherwood MD Abdomen/Pelvis CT 01/28/17 Signed Impressions: Service Date/Time: Saturday, January 28, 2017 20:28 - CONCLUSION: 1. Fatty liver. 2. 5.7 x 3.5 cm cystic lesion within the right hemipelvis posteriorly. Outpatient ultrasound of the pelvis may be helpful for further characterization of this finding if clinically indicated. 3. Posterior bibasilar atelectasis. 4. Degenerative changes and scoliosis of the thoracolumbar spine. Prince Allen MD Objective Remarks GENERAL: This is a well-nourished, well-developed patient, in no apparent distress. CARDIOVASCULAR: tachycardic with irregular rhythm without murmurs, gallops, or rubs. RESPIRATORY: Clear to auscultation. Breath sounds equal bilaterally. No wheezes , rales, or rhonchi. GASTROINTESTINAL: Abdomen soft, non-tender, nondistended. Normal, active bowel sounds MUSCULOSKELETAL: Extremities without clubbing, cyanosis, or edema. NEURO: Alert & Oriented x4 to person, place, time, situation. Moves all ext x4 Medications and IVs Current Medications Ondansetron HCl (Zofran Inj) 4 mg ONCE ONCE IVP Last administered on 19:03; Start 01/28/17 at 18:00; Stop 01/28/17 at 18:01; Status DC Sodium Chloride (NS Flush) 2 ml UNSCH PRN IV FLUSH FLUSH AFTER USING IV ACCESS Last administered on 01/28/17 19:03; Start 01/28/17 at 18:00; Stop 01/29/17 at 08:52; Status DC Sodium Chloride 500 ml @ 500 mls/hr BOLUS ONCE IV Last administered on 20:17; Start 01/28/17 at 20:00; Stop 01/28/17 at 20:59; Status DC Metoclopramide HCl (Reglan Inj) 10 mg ONCE ONCE IV PUSH Last administered on 01/28/17 20:18; Start 01/28/17 at 20:00; Stop 01/28/17 at 20:01; Status DC Metoprolol Tartrate (Lopressor) 25 mg ONCE ONCE PO Last administered on 20:54; Start 01/28/17 at 20:15; Stop 01/28/17 at 20:16; Status DC Ondansetron HCl (Zofran Inj) 4 mg ONCE ONCE IV PUSH Last administered on 20:56; Start 01/28/17 at 21:00; Stop 01/28/17 at 21:01; Status DC Iohexol (Omnipaque 350 Inj) 97 ml STK-MED ONCE IVCONTRAST Last administered on 01/28/17 20:49; Start 01/28/17 at 20:49; Stop 01/28/17 at 20:50; Status DC Hydralazine HCl (Apresoline Inj) 10 mg ONCE ONCE IV PUSH Last administered on 01/28/17 22:05; Start 01/28/17 at 22:00; Stop 01/28/17 at 22:01; Status DC Sodium Chloride (NS Flush) 2 ml UNSCH PRN IV FLUSH FLUSH AFTER USING IV ACCESS Last administered on 01/29/17 14:08; Start 01/28/17 at 22:15 Sodium Chloride (NS Flush) 2 ml BID IV FLUSH Last administered on 01/29/17 19: 58; Start 01/29/17 at 09:00 Naloxone HCl (Narcan Inj) 0.4 mg UNSCH PRN IV PUSH SEE LABEL COMMENTS; Start 01/28/17 at 22:15 Enalaprilat (Vasotec Inj) 2.5 mg Q6H PRN IV PUSH BP>160/90 Last administered on 01/30/17 04:34; Start 01/28/17 at 22:15 Hydralazine HCl (Apresoline Inj) 10 mg Q30M PRN IV PUSH bp>160/90 Last administered on 01/29/17 04:53; Start 01/29/17 at 02:15; Stop 01/29/17 at 05:33 ; Status DC Promethazine HCl (Phenergan Inj) 12.5 mg Q4H PRN IM nausea not relieved by zofran Last administered on 01/29/17 09:45; Start 01/29/17 at 02:15 Miscellaneous Information Patient in critical care unit? Ass... Q361D .XX ; Start 01/29/17 at 04:45 Chlorhexidine Gluconate (Chlorhexidine 2% Cloth) 3 pack DAILY@04 TOPICAL Last administered on 01/30/17 04:00; Start 01/30/17 at 04:00; Stop 02/03/17 at 04: 01 Chlorhexidine Gluconate (Chlorhexidine 2% Cloth) 3 pack UNSCH PRN TOPICAL HYGIENIC CARE; Start 01/29/17 at 04:45; Stop 02/03/17 at 04:40 Ondansetron HCl (Zofran Inj) 4 mg Q6HR PRN IV PUSH nausea Last administered on 01/29/17 14:08; Start 01/29/17 at 05:45 Pantoprazole Sodium 80 mg/ Sodium Chloride 35 ml @ 420 mls/hr Q5M ONCE IV Last administered on 01/29/17 09:45; Start 01/29/17 at 06:51; Stop 01/29/17 at 06:55; Status DC Pantoprazole Sodium 80 mg/ Sodium Chloride 100 ml @ 10 mls/hr Q10H IV Last administered on 01/30/17 05:27; Start 01/29/17 at 07:00 Potassium Chloride 100 ml @ 50 mls/hr Q2H IV Last administered on 01/29/17 09 :45; Start 01/29/17 at 06:00; Stop 01/29/17 at 09:59; Status DC Dextrose/Sodium Chloride 1,000 ml @ 84 mls/hr [id number] IV ; Start 01/29/17 at 06 :00; Stop 01/29/17 at 08:31; Status DC Dextrose (D50w (Vial) Inj) 50 ml UNSCH PRN IV PUSH HYPOGLYCEMIA-SEE COMMENTS; Start 01/29/17 at 06:00; Stop 01/29/17 at 08:52; Status DC Glucagon (Glucagon Inj) 1 mg UNSCH PRN OTHER HYPOGLYCEMIA-SEE COMMENTS; Start 01/29/17 at 06:00; Stop 01/29/17 at 08:52; Status DC Pneumococcal Polyvalent Vaccine (Pneumovax-23 Inj) 25 mcg ONCE ONCE IM ; Start 01/30/17 at 09:00; Stop 01/30/17 at 09:01 Influenza Virus Vaccine (Flu (Quadrivalent) Vaccine Inj) 0.5 ml ONCE ONCE IM ; Start 01/30/17 at 09:00; Stop 01/30/17 at 09:01 Metoprolol Tartrate (Lopressor) 25 mg BID PO Last administered on 01/29/17 19: 58; Start 01/29/17 at 09:00 Sodium Chloride 1,000 ml @ 75 mls/hr [id number] IV Last administered on 01:05; Start 01/29/17 at 08:30 Dextrose (D50w (Vial) Inj) 50 ml UNSCH PRN IV PUSH HYPOGLYCEMIA-SEE COMMENTS; Start 01/29/17 at 08:30 Glucagon (Glucagon Inj) 1 mg UNSCH PRN OTHER HYPOGLYCEMIA-SEE COMMENTS; Start 01/29/17 at 08:30 Insulin Aspart (NovoLOG SUPPLEMENTAL SCALE) 1 ACHS SLIDING SCALE SQ ; Start at 12:00 Diltiazem HCl (Cardizem Inj) 20 mg ONCE ONCE IV Last administered on 10:33; Start 01/29/17 at 10:00; Stop 01/29/17 at 10:01; Status DC Diltiazem HCl (Cardizem) 30 mg QID PO Last administered on 01/29/17 19:58; Start 01/29/17 at 14:00 Diltiazem HCl (Cardizem Inj) 20 mg NOW ONCE IV PUSH Last administered on 14:08; Start 01/29/17 at 14:00; Stop 01/29/17 at 14:04; Status DC Diltiazem HCl 125 mg/Sodium Chloride 125 ml @ 5 mls/hr TITRATE PRN IV Tachycardia; Start 01/29/17 at 15:00 Iohexol (Omnipaque 350 Inj) 80 ml STK-MED ONCE IVCONTRAST Last administered on 01/29/17 20:48; Start 01/29/17 at 20:48; Stop 01/29/17 at 20:49; Status DC A/P Assessment and Plan A/P -GI bleed with persistent nausea/vomiting continue with Protonix and antiemetics as needed- continue to monitor H/H- GI consult appreciated and plan for EGD today. - atrial fibrillation with RVR- continue metoprolol and cardizem; will consider increasing po cardizem if HR not well controlled.no anticoagulation because of GI bleed. echo pending- cardiology consult appreciated. -hypertension;continue cardizem and metoprolol- will monitor and adjust the regimen as needed. -diabetes mellitus; accu-check with SSI -DVT prophylaxis; SCD's- no chemical prophylaxis due to GI bleed. -consult PT - likely tomorrow if HR better controlled. transfer to [facility]. d/w the RN. family were updated at the bedside. Girma Julian MD Jan 30, 2017 07:47
[2017-01-30] MEDS: INSULIN ASPART SUPPLEMENTAL SCALE SQ SCH ×4 (08:00→20:52)
[2017-01-30] MEDS: SODIUM CHLORIDE 0.9% FLUSH 10 ML FLUSH IV FLUSH SCH ×2 (08:31→20:53)
[2017-01-30] MEDS: METOPROLOL TARTRATE 25 MG TAB PO SCH ×2 (08:31→20:52)
[2017-01-30] MEDS: SODIUM CHLORIDE 0.9% FLUSH 10 ML FLUSH IV FLUSH PRN (08:31)
[2017-01-30] MEDS: DILTIAZEM HCL 30 MG TAB PO SCH ×4 (08:31→20:52)
[2017-01-30] MEDS ORDERED: PNEUMOCOCCAL POLYVALENT INJ 25 MCG/0.5 ML SYR IM ONE (09:00)
[2017-01-30] MEDS ORDERED: INFLUENZA VIRUS VACCINE (QUADRIVALENT) 0.5 ML SYR IM ONE (09:00)
[2017-01-30] MEDS ORDERED: EPINEPHrine HCL (1:10,000) 1 MG/10 ML SYRINGE SQ ONE (10:00)
--- NOTE | 2017-01-30 10:37 | PD.CARD.PN ---
Subjective Subjective Remarks no CV complaints Afib control Objective Medications Current Medications Medications (Trade) Dose Ordered Sig/Amy Route Start Time Stop Time Status Last Admin (NS Flush) 2 ml UNSCH PRN IV FLUSH 01/28/17 22:15 01/30/17 08:31 (NS Flush) 2 ml BID IV FLUSH 01/29/17 09:00 01/30/17 08:31 (Narcan Inj) 0.4 mg UNSCH PRN IV PUSH 01/28/17 22:15 (Vasotec Inj) 2.5 mg Q6H PRN IV PUSH 01/28/17 22:15 01/30/17 04:34 (Phenergan Inj) 12.5 mg Q4H PRN IM 01/29/17 02:15 01/29/17 09:45 Miscellaneous Information Patient in critical care unit? Ass... Q361D .XX 01/29/17 04:45 (Chlorhexidine 2% Cloth) 3 pack DAILY@04 TOPICAL 01/30/17 04:00 02/03/17 04:01 01/30/17 04:00 (Chlorhexidine 2% Cloth) 3 pack UNSCH PRN TOPICAL 01/29/17 04:45 02/03/17 04:40 (Zofran Inj) 4 mg Q6HR PRN IV PUSH 01/29/17 05:45 01/29/17 14:08 Pantoprazole Sodium 80 mg/ Sodium Chloride 100 ml @ 10 mls/hr Q10H IV 01/29/17 07:00 01/30/17 05:27 (Lopressor) 25 mg BID PO 01/29/17 09:00 01/30/17 08:31 Sodium Chloride 1,000 ml @ 75 mls/hr [id number] IV 01/29/17 08:30 01/30/17 01:05 (D50w (Vial) Inj) 50 ml UNSCH PRN IV PUSH 01/29/17 08:30 (Glucagon Inj) 1 mg UNSCH PRN OTHER 01/29/17 08:30 (NovoLOG SUPPLEMENTAL SCALE) 1 ACHS SLIDING SCALE SQ 01/29/17 12:00 (Cardizem) 30 mg QID PO 01/29/17 14:00 01/30/17 08:31 Diltiazem HCl 125 mg/Sodium Chloride 125 ml @ 5 mls/hr TITRATE PRN IV 01/29/17 15:00 Vital Signs / I&O Vital Signs Date Time Temp Pulse Resp B/P (MAP) Pulse Ox O2 Delivery O2 Flow Rate FiO2 01/30/17 06:00 101 01/30/17 04:00 89 01/30/17 04:00 98.3 89 23 160/71 (100) 95 01/30/17 02:00 90 01/30/17 00:00 99.0 82 29 133/68 (89) 95 01/30/17 00:00 82 01/29/17 22:00 103 01/29/17 20:00 94 01/29/17 20:00 98.5 94 31 127/75 (92) 88 01/29/17 18:00 96 01/29/17 16:00 98.3 91 24 139/78 (98) 94 01/29/17 16:00 91 01/29/17 14:00 91 01/29/17 12:00 98.1 102 22 140/83 (102) 98 01/29/17 12:00 102 I/O 01/29/17 01/29/17 01/29/17 01/30/17 01/30/17 01/30/17 07:00 15:00 23:00 07:00 15:00 23:00 Intake Total 50 ml 40 ml 734 ml 525 ml Output Total 40 ml 450 ml 1100 ml Balance 10 ml 40 ml 284 ml -575 ml Intake Oral 50 ml IV Total 40 ml 734 ml 525 ml Output Urine Total 0 ml 450 ml 1100 ml Emesis 40 ml # Voids 2 3 # Bowel Movements 0 0 0 Physical Exam GENERAL: Well-nourished, well-developed patient. SKIN: Warm and dry. HEAD: Normocephalic. EYES: No scleral icterus. No injection or drainage. NECK: Supple, trachea midline. No JVD or lymphadenopathy. CARDIOVASCULAR: Irr Irr without murmurs, gallops, or rubs. RESPIRATORY: Breath sounds equal bilaterally. No accessory muscle use. GASTROINTESTINAL: Abdomen soft, non-tender, nondistended. EXTREMITIES: No cyanosis, or edema. NEUROLOGICAL: Awake, alert, and oriented x 3. Non-focal. Imaging Last Impressions Neck CTA 01/29/17 0000 Signed Impressions: Service Date/Time: January 20:24 - CONCLUSION: 1. Minimal focal stenosis involving the origin of the left common carotid artery. 2. Bovine arch. 3. No significant stenosis or occlusion of the internal carotid arteries. 4. Extensive spondylosis, multilevel spinal stenoses and bilateral foraminal narrowing are noted within the cervical spine. Prince Allen MD Head Magnetic Resonance Angiography 01/29/17 0000 Signed Impressions: Service Date/Time: January 11:56 - CONCLUSION: 1. Suspect thrombus in the right M1 segment of the middle cerebral artery. Confirmation with CTA of the brain is recommended. Sadiq Sherwood MD Head CTA 01/29/17 0000 Signed Impressions: Service Date/Time: January 20:24 - CONCLUSION: 1. Decreased signal in the right M1 segment noted on MRA exam does not correspond to the focal abnormality on CT exam and likely reflects tortuosity. 2. Unremarkable CTA examination of the head. Specifically, no evidence for large vessel occlusion or aneurysm. Tomasz Farmer MD Head CT 01/29/17 0000 Signed Impressions: Service Date/Time: January 06:29 - CONCLUSION: Negative trauma CT with no evidence of hemorrhage. Ajith Tate MD Brain MRI 01/29/17 0000 Signed Impressions: Service Date/Time: January 11:56 - CONCLUSION: 1. Minimal nonspecific white matter changes. 2. No acute infarction Sadiq Sherwood MD Abdomen/Pelvis CT 01/28/17 0000 Signed Impressions: Service Date/Time: Saturday, January 28, 2017 20:28 - CONCLUSION: 1. Fatty liver. 2. 5.7 x 3.5 cm cystic lesion within the right hemipelvis posteriorly. Outpatient ultrasound of the pelvis may be helpful for further characterization of this finding if clinically indicated. 3. Posterior bibasilar atelectasis. 4. Degenerative changes and scoliosis of the thoracolumbar spine. Prince Allen MD Assessment and Plan Problem List: (1) Atrial fibrillation ICD Codes: I48.91 - Unspecified atrial fibrillation Plan: Cont rate control Not candidate for OAC given ? GIB Will be available on a PRN basis for any questions or concerns (2) Generalized weakness ICD Codes: R53.1 - Weakness Status: Acute (3) Hypertensive urgency ICD Codes: I16.0 - Hypertensive urgency Status: Acute Problem Qualifiers (1) Atrial fibrillation: Qualified Codes: I48.91 - Unspecified atrial fibrillation Arslan Dillard MD Jan 30, 2017 10:37
--- NOTE | 2017-01-30 11:59 | GIPROC ---
[facility] [address] [facility]. [facility], [address] EGD PROCEDURE REPORT EXAM DATE: 01/30/2017 PATIENT NAME: Mayela Dorantes MR #: [id number] BIRTHDATE: 1930 ATTENDING: Nkechi Plata MD ORDER #: [id number] MEDICAL ASSISTANT INSTRUCTOR: Katherine Dunn and Mack Peterson STATUS: inpatient INDICATIONS: The patient is a 86 yr old female here for an EGD due to acute post hemorrhagic anemia and melena PROCEDURE PERFORMED: EGD w/ directed submucosal injection(s), any substance MEDICATIONS: Per Anesthesia and None. TOPICAL ANESTHETIC: CONSENT: The patient understands the risks and benefits of the procedure and understands that these risks include, but are not limited to: sedation, allergic reaction, infection, perforation and/or bleeding. Alternative means of evaluation and treatment include, among others: physical exam, x-rays, and/or surgical intervention. The patient elects to proceed with this endoscopic procedure. medical equipment was checked for proper function. Hand hygiene and appropriate measures for infection prevention was taken. After the risks, benefits and alternatives of the procedure were thoroughly explained, Informed consent was verified, confirmed and timeout was successfully executed by the treatment team. The patient was anesthetized with topical anesthesia and the Pentax [id number] endoscope was introduced through the mouth and advanced to the second portion of the duodenum. Retroflexed views revealed no abnormalities The gastroscope was then slowly withdrawn and removed. ESOPHAGUS: There was LA Class A esophagitis noted. STOMACH: The mucosa of the stomach appeared normal. DUODENUM: A single bleeding and shallow ulcer ranging between 5-9mm in size with surrounding edema, a pigmented spot and active oozing of blood was found in the duodenal bulb. Submucosal injection of 3ml of epinephrine 1:10,000 was performed around the bleeding site with complete hemostasis achieved. ADVERSE EVENTS: There were no complications. IMPRESSIONS: 1. There was LA Class A esophagitis noted 2. The mucosa of the stomach appeared normal 3. Single ulcer ranging between 5-9mm in size was found in the duodenal bulb; Submucosal injection of 3ml of epinephrine 1:10,000 was performed around the bleeding site 4. Retroflexed views revealed no abnormalities RECOMMENDATIONS: 1. Continue PPI 2. Avoid NSAIDS 3. Monitor in icu, GDA embolization if rebleeds PATIENT CONDITION: stable DISPOSITION: Inpatient REPEAT EXAM: Return 4 weeks EGD Nkechi Plata MD eSigned: Nkechi Plata MD 01/30/2017 11:58 AM cc: PATIENT NAME: Mayela Dorantes MR#: [id number]
[2017-01-30] MEDS ORDERED: PROPOFOL 200 MG/20 ML AMP IV ONE (12:00)
[2017-01-30] MEDS ORDERED: LIDOCAINE HCL 1% PF 5 ML SYRINGE OTHER ONE (12:00)
[2017-01-30] MEDS ORDERED: DO NOT ADM ANY ANTICOAGULANT DRUGS PRN (12:30)
[2017-01-30 14:31] LABS: AUTOMATED NEUTROPHIL # 6.6 TH/MM3 (1.8-7.7); BASOPHIL # 0.1 TH/MM3 (0-0.2); BASOPHIL % 0.6 % (0.0-2.0); EOSINOPHIL # 0.2 TH/MM3 (0-0.4); EOSINOPHIL % 2.6 % (0.0-4.0); HEMATOCRIT 33.5 % (35.0-46.0); HEMO FLAGS DIFF FINAL; LYMPH % 20.2 % (9.0-44.0); LYMPHOCYTE # 1.9 TH/MM3 (1.0-4.8); MEAN CELL VOLUME 87.8 FL (80.0-100.0); MEAN CORPUSCULAR HEMOGLOBIN 29.6 PG (27.0-34.0); MEAN CORPUSCULAR HGB CONC 33.7 % (32.0-36.0); MONO % 7.1 % (0.0-8.0); NEUT % 69.5 % (16.0-70.0); PLATELET COUNT 222 TH/MM3 (150-450); RED BLOOD COUNT 3.82 MIL/MM3 (4.00-5.30); RED CELL DISTRIBUTION WIDTH 14.7 % (11.6-17.2); WHITE BLOOD COUNT 9.5 TH/MM3 (4.0-11.0)
[2017-01-30 14:49] LABS: BICARBONATE 24.9 MEQ/L (21.0-32.0); POTASSIUM 3.3 MEQ/L (3.5-5.1)
--- NOTE | 2017-01-30 17:48 | ECHRPT ---
Indication: A FIB FLUTTER CONCLUSIONS The left ventricular systolic function is normal with an estimated ejection fraction in the range of 55-60%. Wall thickness is measured at the upper limits of normal. Trace mitral valve regurgitation. Mild aortic valve regurgitation. There is trace tricuspid valve regurgitation. BP: / HR: Rhythm: MEASUREMENTS (Male / Female) Normal Values Technical Quality: 2D ECHO LV Diastolic Diameter PLAX 4.7 cm 4.2 - 5.9 / 3.9 - 5.3 cm LV Systolic Diameter PLAX 3.5 cm IVS Diastolic Thickness 1.2 cm 0.6 - 1.0 / 0.6 - 0.9 cm LVPW Diastolic Thickness 0.7 cm 0.6 - 1.0 / 0.6 - 0.9 cm LV Relative Wall Thickness 0.4 RV Internal Dim ED PLAX 2.2 cm LA Systolic Diameter LX 3.7 cm 3.0 - 4.0 / 2.7 - 3.8 cm M-MODE Aortic Root Diameter MM 2.8 cm AV Cusp Separation MM 1.7 cm DOPPLER AV Peak Velocity 147.0 cm/s AV Peak Gradient 8.6 mmHg LVOT Peak Velocity 76.5 cm/s LVOT Peak Gradient 2.3 mmHg Mitral E Point Velocity 89.3 cm/s TR Peak Velocity 286.0 cm/s TR Peak Gradient 32.7 mmHg Right Atrial Pressure 5.0 mmHg Pulmonary Artery Systolic Pressu 37.7 mmHg Right Ventricular Systolic Press 37.7 mmHg FINDINGS LEFT VENTRICLE Normal left ventricular size. Wall thickness is measured at the upper limits of normal. The left ventricular systolic function is normal with an estimated ejection fraction in the range of 55-60%. No regional wall motion abnormalities are present. RIGHT VENTRICLE Normal right ventricular size and systolic function. LEFT ATRIUM The left atrial size is normal. RIGHT ATRIUM The right atrial size is normal. ATRIAL SEPTUM Normal atrial septal thickness. AORTA The aortic root and proximal ascending aorta are normal in size on limited imaging. MITRAL VALVE Mild mitral annular calcification is present. Trace mitral valve regurgitation. No mitral valve stenosis. AORTIC VALVE Trileaflet aortic valve. Mild calcification of the aortic valve. No aortic valve stenosis. Mild aortic valve regurgitation. TRICUSPID VALVE Structurally normal tricuspid valve. No tricuspid valve stenosis. There is trace tricuspid valve regurgitation. PULMONARY VALVE No pulmonary valve regurgitation or stenosis. VESSELS The inferior vena cava is normal in size. PERICARDIUM No pericardial effusion. Vincent G. Carranza DO (Electronically Signed) Final Date:30 January 2017 17:47
[2017-01-31] VITALS (30 sets, daily range): BP systolic 127–195; BP diastolic 55–83; PULSE 67–99; RESP 16–19; TEMP 98–98.7; O2SAT 94–96
[2017-01-31] MEDS: SODIUM CHLOR 0.9% 1000 ML INJ 1,000 ML IV SCH ×2 (00:30→15:22)
[2017-01-31] MEDS: PANTOPRAZOLE INJ 80 MG in SODIUM CHLORIDE 0.9% INJ 100 ML IV SCH ×3 (01:26→22:03)
[2017-01-31] MEDS: CHLORHEXIDINE GLUCONATE 2 % 1 PACK (2 CLOTHS)(taper/protocol) TOPICAL SCH (04:00)
--- NOTE | 2017-01-31 07:38 | HHI.PR ---
Subjective Remarks in no acute distress. no chest pain, sob or dizziness. no GI bleed. d/w the RN and no acute issues over night. Objective Vitals Vital Signs Date Time Temp Pulse Resp B/P (MAP) Pulse Ox O2 Delivery O2 Flow Rate FiO2 01/31/17 06:12 74 01/31/17 05:15 99 01/31/17 04:24 74 01/31/17 03:31 95 01/31/17 03:22 98.5 79 19 165/76 (105) 94 01/31/17 03:22 71 01/31/17 02:24 78 01/31/17 01:05 70 01/31/17 00:03 76 01/30/17 23:44 74 01/30/17 23:44 98.8 73 18 152/67 (95) 95 01/30/17 22:00 71 01/30/17 21:00 68 01/30/17 20:00 88 01/30/17 19:20 102 01/30/17 19:20 98.6 88 19 149/76 (100) 96 01/30/17 18:00 94 01/30/17 17:06 97.7 107 20 150/81 (104) 96 01/30/17 17:00 96 01/30/17 16:00 78 01/30/17 15:54 83 01/30/17 15:00 97.7 98 20 147/69 (95) 97 01/30/17 12:30 87 01/30/17 12:30 98.0 87 23 157/82 (107) 80 01/30/17 12:04 99.2 84 20 158/84 (108) 93 Nasal Cannula 2 01/30/17 11:00 98 01/30/17 10:58 99.2 84 20 147/79 (101) 95 01/30/17 10:58 84 01/30/17 10:00 78 22 165/72 (103) 94 01/30/17 09:00 96 28 142/84 (103) 95 01/30/17 08:00 98.1 93 25 138/70 (92) 95 01/30/17 08:00 98 I/O 01/30/17 01/30/17 01/30/17 01/31/17 01/31/17 01/31/17 07:00 15:00 23:00 07:00 15:00 23:00 Intake Total 525 ml 1695 ml 600 ml 240 ml Output Total 1100 ml 375 ml 310 ml Balance -575 ml 1320 ml 600 ml -70 ml Intake Oral 472 ml 300 ml 240 ml IV Total 525 ml 1023 ml 300 ml Other 200 ml Output Urine Total 1100 ml 375 ml 310 ml # Voids 3 # Bowel Movements 0 Result Diagram: 01/30/17 1354 01/30/17 1354 Imaging Last Impressions Neck CTA 01/29/17 0000 Signed Impressions: Service Date/Time: January 20:24 - CONCLUSION: 1. Minimal focal stenosis involving the origin of the left common carotid artery. 2. Bovine arch. 3. No significant stenosis or occlusion of the internal carotid arteries. 4. Extensive spondylosis, multilevel spinal stenoses and bilateral foraminal narrowing are noted within the cervical spine. Prince Allen MD Head Magnetic Resonance Angiography 01/29/17 0000 Signed Impressions: Service Date/Time: January 11:56 - CONCLUSION: 1. Suspect thrombus in the right M1 segment of the middle cerebral artery. Confirmation with CTA of the brain is recommended. Sadiq Sherwood MD Head CTA 01/29/17 0000 Signed Impressions: Service Date/Time: January 20:24 - CONCLUSION: 1. Decreased signal in the right M1 segment noted on MRA exam does not correspond to the focal abnormality on CT exam and likely reflects tortuosity. 2. Unremarkable CTA examination of the head. Specifically, no evidence for large vessel occlusion or aneurysm. Tomasz Farmer MD Head CT 01/29/17 0000 Signed Impressions: Service Date/Time: January 06:29 - CONCLUSION: Negative trauma CT with no evidence of hemorrhage. Ajith Tate MD Brain MRI 01/29/17 0000 Signed Impressions: Service Date/Time: January 11:56 - CONCLUSION: 1. Minimal nonspecific white matter changes. 2. No acute infarction Sadiq Sherwood MD Abdomen/Pelvis CT 01/28/17 0000 Signed Impressions: Service Date/Time: Saturday, January 28, 2017 20:28 - CONCLUSION: 1. Fatty liver. 2. 5.7 x 3.5 cm cystic lesion within the right hemipelvis posteriorly. Outpatient ultrasound of the pelvis may be helpful for further characterization of this finding if clinically indicated. 3. Posterior bibasilar atelectasis. 4. Degenerative changes and scoliosis of the thoracolumbar spine. Prince Allen MD Objective Remarks GENERAL: This is a well-nourished, well-developed patient, in no apparent distress. CARDIOVASCULAR: tachycardic with regular rhythm without murmurs, gallops, or rubs. RESPIRATORY: Clear to auscultation. Breath sounds equal bilaterally. No wheezes , rales, or rhonchi. GASTROINTESTINAL: Abdomen soft, non-tender, nondistended. Normal, active bowel sounds MUSCULOSKELETAL: Extremities without clubbing, cyanosis, or edema. NEURO: Alert & Oriented x4 to person, place, time, situation. Moves all ext x4 Procedures EGD Medications and IVs Current Medications Ondansetron HCl (Zofran Inj) 4 mg ONCE ONCE IVP Last administered on 19:03; Start 01/28/17 at 18:00; Stop 01/28/17 at 18:01; Status DC Sodium Chloride (NS Flush) 2 ml UNSCH PRN IV FLUSH FLUSH AFTER USING IV ACCESS Last administered on 01/28/17 19:03; Start 01/28/17 at 18:00; Stop 01/29/17 at 08:52; Status DC Sodium Chloride 500 ml @ 500 mls/hr BOLUS ONCE IV Last administered on 20:17; Start 01/28/17 at 20:00; Stop 01/28/17 at 20:59; Status DC Metoclopramide HCl (Reglan Inj) 10 mg ONCE ONCE IV PUSH Last administered on 01/28/17 20:18; Start 01/28/17 at 20:00; Stop 01/28/17 at 20:01; Status DC Metoprolol Tartrate (Lopressor) 25 mg ONCE ONCE PO Last administered on 20:54; Start 01/28/17 at 20:15; Stop 01/28/17 at 20:16; Status DC Ondansetron HCl (Zofran Inj) 4 mg ONCE ONCE IV PUSH Last administered on 20:56; Start 01/28/17 at 21:00; Stop 01/28/17 at 21:01; Status DC Iohexol (Omnipaque 350 Inj) 97 ml STK-MED ONCE IVCONTRAST Last administered on 01/28/17 20:49; Start 01/28/17 at 20:49; Stop 01/28/17 at 20:50; Status DC Hydralazine HCl (Apresoline Inj) 10 mg ONCE ONCE IV PUSH Last administered on 01/28/17 22:05; Start 01/28/17 at 22:00; Stop 01/28/17 at 22:01; Status DC Sodium Chloride (NS Flush) 2 ml UNSCH PRN IV FLUSH FLUSH AFTER USING IV ACCESS Last administered on 01/30/17 08:31; Start 01/28/17 at 22:15 Sodium Chloride (NS Flush) 2 ml BID IV FLUSH Last administered on 01/30/17 08: 31; Start 01/29/17 at 09:00 Naloxone HCl (Narcan Inj) 0.4 mg UNSCH PRN IV PUSH SEE LABEL COMMENTS; Start 01/28/17 at 22:15 Enalaprilat (Vasotec Inj) 2.5 mg Q6H PRN IV PUSH BP>160/90 Last administered on 01/30/17 04:34; Start 01/28/17 at 22:15 Hydralazine HCl (Apresoline Inj) 10 mg Q30M PRN IV PUSH bp>160/90 Last administered on 01/29/17 04:53; Start 01/29/17 at 02:15; Stop 01/29/17 at 05:33 ; Status DC Promethazine HCl (Phenergan Inj) 12.5 mg Q4H PRN IM nausea not relieved by zofran Last administered on 01/29/17 09:45; Start 01/29/17 at 02:15 Miscellaneous Information Patient in critical care unit? Ass... [id number] .XX ; Start 01/29/17 at 04:45 Chlorhexidine Gluconate (Chlorhexidine 2% Cloth) 3 pack DAILY@04 TOPICAL Last administered on 01/30/17 04:00; Start 01/30/17 at 04:00; Stop 02/03/17 at 04: 01 Chlorhexidine Gluconate (Chlorhexidine 2% Cloth) 3 pack UNSCH PRN TOPICAL HYGIENIC CARE; Start 01/29/17 at 04:45; Stop 02/03/17 at 04:40 Ondansetron HCl (Zofran Inj) 4 mg Q6HR PRN IV PUSH nausea Last administered on 01/29/17 14:08; Start 01/29/17 at 05:45 Pantoprazole Sodium 80 mg/ Sodium Chloride 35 ml @ 420 mls/hr Q5M ONCE IV Last administered on 01/29/17 09:45; Start 01/29/17 at 06:51; Stop 01/29/17 at 06:55; Status DC Pantoprazole Sodium 80 mg/ Sodium Chloride 100 ml @ 10 mls/hr Q10H IV Last administered on 01/31/17 01:26; Start 01/29/17 at 07:00 Potassium Chloride 100 ml @ 50 mls/hr Q2H IV Last administered on 01/29/17 09 :45; Start 01/29/17 at 06:00; Stop 01/29/17 at 09:59; Status DC Dextrose/Sodium Chloride 1,000 ml @ 84 mls/hr [id number] IV ; Start 01/29/17 at 06 :00; Stop 01/29/17 at 08:31; Status DC Dextrose (D50w (Vial) Inj) 50 ml UNSCH PRN IV PUSH HYPOGLYCEMIA-SEE COMMENTS; Start 01/29/17 at 06:00; Stop 01/29/17 at 08:52; Status DC Glucagon (Glucagon Inj) 1 mg UNSCH PRN OTHER HYPOGLYCEMIA-SEE COMMENTS; Start 01/29/17 at 06:00; Stop 01/29/17 at 08:52; Status DC Pneumococcal Polyvalent Vaccine (Pneumovax-23 Inj) 25 mcg ONCE ONCE IM Last administered on 01/30/17 08:30; Start 01/30/17 at 09:00; Stop 01/30/17 at 09:01 ; Status DC Influenza Virus Vaccine (Flu (Quadrivalent) Vaccine Inj) 0.5 ml ONCE ONCE IM Last administered on 01/30/17 08:29; Start 01/30/17 at 09:00; Stop 01/30/17 at 09:01; Status DC Metoprolol Tartrate (Lopressor) 25 mg BID PO Last administered on 01/30/17 20: 52; Start 01/29/17 at 09:00 Sodium Chloride 1,000 ml @ 75 mls/hr [id number] IV Last administered on 00:30; Start 01/29/17 at 08:30 Dextrose (D50w (Vial) Inj) 50 ml UNSCH PRN IV PUSH HYPOGLYCEMIA-SEE COMMENTS; Start 01/29/17 at 08:30 Glucagon (Glucagon Inj) 1 mg UNSCH PRN OTHER HYPOGLYCEMIA-SEE COMMENTS; Start 01/29/17 at 08:30 Insulin Aspart (NovoLOG SUPPLEMENTAL SCALE) 1 ACHS SLIDING SCALE SQ ; Start at 12:00 Diltiazem HCl (Cardizem Inj) 20 mg ONCE ONCE IV Last administered on 10:33; Start 01/29/17 at 10:00; Stop 01/29/17 at 10:01; Status DC Diltiazem HCl (Cardizem) 30 mg QID PO Last administered on 01/30/17 20:52; Start 01/29/17 at 14:00 Diltiazem HCl (Cardizem Inj) 20 mg NOW ONCE IV PUSH Last administered on 14:08; Start 01/29/17 at 14:00; Stop 01/29/17 at 14:04; Status DC Diltiazem HCl 125 mg/Sodium Chloride 125 ml @ 5 mls/hr TITRATE PRN IV Tachycardia; Start 01/29/17 at 15:00 Iohexol (Omnipaque 350 Inj) 80 ml STK-MED ONCE IVCONTRAST Last administered on 01/29/17 20:48; Start 01/29/17 at 20:48; Stop 01/29/17 at 20:49; Status DC Miscellaneous Information ALL NURSING DEPARTME... UNSCH PRN .XX SEE LABEL COMMENTS; Start 01/30/17 at 12:30; Stop 01/31/17 at 12:29 Epinephrine HCl (EPINEPHrine (1:10,000) INJ) 0.3 mg STK-MED ONCE SQ ; Start 01/30/17 at 10:00; Stop 01/30/17 at 20:21; Status DC A/P Assessment and Plan A/P -GI bleed with persistent nausea/vomiting continue with Protonix and antiemetics as needed- continue to monitor H/H- s/p EGD: with LA Class A esophagitis , normal stomach mucosa , Single ulcer ranging between 5-9mm in size was found in the duodenal bulb s/p Submucosal injection of 3ml of epinephrine 1:10,000 around the bleeding site. on liquid diet; will advance when ok with GI. GI following. - atrial fibrillation with RVR-HR controlled- continue metoprolol and cardizem. echo with EF55%- cardiology consult appreciated. -hypertension;continue cardizem and metoprolol- will monitor and adjust the regimen as needed. -diabetes mellitus; accu-check with SSI -DVT prophylaxis; SCD's- no chemical prophylaxis due to GI bleed. -consult PT. d/w the RN. family were updated at the bedside. Girma Julian MD Jan 31, 2017 07:38
[2017-01-31] MEDS: INSULIN ASPART SUPPLEMENTAL SCALE SQ SCH ×4 (08:00→20:08)
[2017-01-31] MEDS: SODIUM CHLORIDE 0.9% FLUSH 10 ML FLUSH IV FLUSH SCH ×2 (08:57→20:09)
[2017-01-31] MEDS: METOPROLOL TARTRATE 25 MG TAB PO SCH ×2 (08:57→20:05)
[2017-01-31] MEDS: DILTIAZEM HCL 30 MG TAB PO SCH ×4 (08:58→20:05)
--- NOTE | 2017-01-31 09:36 | HHI.GIFU ---
Subjective Remarks Pt resting in bed. tolerating full liquids. No further bleeding, no abd pain. (Kylie Haynes) Objective Vitals I&O Vital Signs Date Time Temp Pulse Resp B/P (MAP) Pulse Ox O2 Delivery O2 Flow Rate FiO2 01/31/17 07:23 98.0 78 16 189/83 (118) 96 01/31/17 06:12 74 01/31/17 05:15 99 01/31/17 04:24 74 01/31/17 03:31 95 01/31/17 03:22 98.5 79 19 165/76 (105) 94 01/31/17 03:22 71 01/31/17 02:24 78 01/31/17 01:05 70 01/31/17 00:03 76 01/30/17 23:44 74 01/30/17 23:44 98.8 73 18 152/67 (95) 95 01/30/17 22:00 71 01/30/17 21:00 68 01/30/17 20:00 88 01/30/17 19:20 102 01/30/17 19:20 98.6 88 19 149/76 (100) 96 01/30/17 18:00 94 01/30/17 17:06 97.7 107 20 150/81 (104) 96 01/30/17 17:00 96 01/30/17 16:00 78 01/30/17 15:54 83 01/30/17 15:00 97.7 98 20 147/69 (95) 97 01/30/17 12:30 87 01/30/17 12:30 98.0 87 23 157/82 (107) 80 01/30/17 12:04 99.2 84 20 158/84 (108) 93 Nasal Cannula 2 01/30/17 11:00 98 01/30/17 10:58 99.2 84 20 147/79 (101) 95 01/30/17 10:58 84 01/30/17 10:00 78 22 165/72 (103) 94 I/O 01/30/17 01/30/17 01/30/17 01/31/17 01/31/17 01/31/17 07:00 15:00 23:00 07:00 15:00 23:00 Intake Total 525 ml 1695 ml 600 ml 240 ml Output Total 1100 ml 375 ml 310 ml Balance -575 ml 1320 ml 600 ml -70 ml Intake Oral 472 ml 300 ml 240 ml IV Total 525 ml 1023 ml 300 ml Other 200 ml Output Urine Total 1100 ml 375 ml 310 ml # Voids 3 # Bowel Movements 0 Laboratory Laboratory Tests Test 01/30/17 13:54 White Blood Count 9.5 Red Blood Count 3.82 Hemoglobin 11.3 Hematocrit 33.5 Mean Corpuscular Volume 87.8 Mean Corpuscular Hemoglobin 29.6 Mean Corpuscular Hemoglobin Concent 33.7 Red Cell Distribution Width 14.7 Platelet Count 222 Mean Platelet Volume 7.9 Neutrophils (%) (Auto) 69.5 Lymphocytes (%) (Auto) 20.2 Monocytes (%) (Auto) 7.1 Eosinophils (%) (Auto) 2.6 Basophils (%) (Auto) 0.6 Neutrophils # (Auto) 6.6 Lymphocytes # (Auto) 1.9 Monocytes # (Auto) 0.7 Eosinophils # (Auto) 0.2 Basophils # (Auto) 0.1 CBC Comment DIFF FINAL Differential Comment Blood Urea Nitrogen 21 Creatinine 0.83 Random Glucose 141 Calcium Level 8.5 Sodium Level 140 Potassium Level 3.3 Chloride Level 107 Carbon Dioxide Level 24.9 Anion Gap 8 Estimat Glomerular Filtration Rate 65 Imaging Last Impressions Neck CTA 01/29/17 Signed Impressions: Service Date/Time: January 20:24 - CONCLUSION: 1. Minimal focal stenosis involving the origin of the left common carotid artery. 2. Bovine arch. 3. No significant stenosis or occlusion of the internal carotid arteries. 4. Extensive spondylosis, multilevel spinal stenoses and bilateral foraminal narrowing are noted within the cervical spine. Prince Allen MD Head Magnetic Resonance Angiography 01/29/17 0000 Signed Impressions: Service Date/Time: January 11:56 - CONCLUSION: 1. Suspect thrombus in the right M1 segment of the middle cerebral artery. Confirmation with CTA of the brain is recommended. Sadiq Sherwood MD Head CTA 01/29/17 Signed Impressions: Service Date/Time: January 20:24 - CONCLUSION: 1. Decreased signal in the right M1 segment noted on MRA exam does not correspond to the focal abnormality on CT exam and likely reflects tortuosity. 2. Unremarkable CTA examination of the head. Specifically, no evidence for large vessel occlusion or aneurysm. Tomasz Farmer MD Head CT 01/29/17 0000 Signed Impressions: Service Date/Time: January 06:29 - CONCLUSION: Negative trauma CT with no evidence of hemorrhage. Ajith Tate MD Brain MRI 01/29/17 0000 Signed Impressions: Service Date/Time: January 11:56 - CONCLUSION: 1. Minimal nonspecific white matter changes. 2. No acute infarction Sadiq Sherwood MD Abdomen/Pelvis CT 01/28/17 0000 Signed Impressions: Service Date/Time: Saturday, January 28, 2017 20:28 - CONCLUSION: 1. Fatty liver. 2. 5.7 x 3.5 cm cystic lesion within the right hemipelvis posteriorly. Outpatient ultrasound of the pelvis may be helpful for further characterization of this finding if clinically indicated. 3. Posterior bibasilar atelectasis. 4. Degenerative changes and scoliosis of the thoracolumbar spine. Prince Allen MD Physical Exam HEENT: PERRL; normocephalic; atraumatic; no jaundice. CHEST: CTA CARDIAC: RRR ABDOMEN: Soft, nondistended, nontender; no hepatosplenomegaly; bowel sounds are present in all four quadrants. EXTREMITIES: No clubbing, cyanosis, or edema. SKIN: Normal; no rash; no jaundice. WORKFORCE ADVISOR: No focal deficits; alert and oriented times three. (Kylie Haynes) Assessment and Plan Plan ASSESSMENT - N/V with CGE, epigastric discomfort, 1 x episode melanotic stool - onset 1 week ago. poss UGIB. s/p EGD found class A esophagitis, bleeding duodenal ulcer s/p epi inj. no further bleeding, lu full liquids. mild decrease Hgb. PLAN - soft diet - PPI - monitor HH - consider colonoscopy as outpt - if further bleeding will need embolization this pt seen by myself and Dr Dodson and this note is written on his behalf (Kylie Haynes) Plan Patient was seen and examined, agree with above note, no sign of active bleeding , no abdominal pain, doing well We will check hemoglobin tomorrow, if stable she can follow as an outpatient with GI for possible colonoscopy (Myesha Dodson MD) Kylie Haynes Jan 31, 2017 09:36 Myesha Dodson MD Jan 31, 2017 18:35
[2017-01-31] MEDS: ENALAPRILAT 2.5 MG/2 ML VIAL IV PUSH PRN (17:28)
[2017-01-31] MEDS ORDERED: cloNIDine HCL 0.1 MG TAB PO ONE (19:45)
[2017-02-01] VITALS (26 sets, daily range): BP systolic 145–194; BP diastolic 69–88; PULSE 66–87; RESP 16–19; TEMP 98.3–99.4; O2SAT 93–96
[2017-02-01] MEDS: CHLORHEXIDINE GLUCONATE 2 % 1 PACK (2 CLOTHS)(taper/protocol) TOPICAL SCH (04:00)
[2017-02-01 07:15] LABS: HEMATOCRIT 25.1 % (35.0-46.0)
[2017-02-01 07:37] LABS: BICARBONATE 25.1 MEQ/L (21.0-32.0); POTASSIUM 3.4 MEQ/L (3.5-5.1)
--- NOTE | 2017-02-01 07:37 | HHI.PR ---
Subjective Remarks in no acute distress. no active GI bleed. no abdominal pain, nausea or chest pain. d/w the family at the bedside. Objective Vitals Vital Signs Date Time Temp Pulse Resp B/P (MAP) Pulse Ox O2 Delivery O2 Flow Rate FiO2 02/01/17 06:19 72 02/01/17 05:05 72 02/01/17 04:52 70 02/01/17 03:43 98.3 73 18 168/69 (102) 93 02/01/17 03:43 68 02/01/17 02:06 66 02/01/17 01:13 74 02/01/17 00:01 67 01/31/17 23:44 98.5 70 19 127/55 (79) 94 01/31/17 23:44 67 01/31/17 22:17 79 01/31/17 20:00 88 01/31/17 19:20 80 01/31/17 19:00 98.7 81 19 195/80 (118) 94 01/31/17 18:16 96 21 01/31/17 18:00 81 01/31/17 17:00 87 01/31/17 16:00 80 01/31/17 15:23 98.2 79 16 175/82 (113) 96 01/31/17 15:00 82 01/31/17 14:00 82 01/31/17 13:40 95 01/31/17 13:00 81 01/31/17 12:00 79 01/31/17 11:35 98.1 79 16 155/71 (99) 95 01/31/17 11:00 78 01/31/17 10:00 76 01/31/17 09:00 78 01/31/17 08:00 79 I/O 01/31/17 01/31/17 01/31/17 02/01/17 02/01/17 02/01/17 07:00 15:00 23:00 07:00 15:00 23:00 Intake Total 240 ml 943 ml 550 ml Output Total 310 ml 850 ml Balance -70 ml 943 ml -300 ml Intake Oral 240 ml 720 ml 480 ml IV Total 223 ml 70 ml Output Urine Total 310 ml 850 ml # Voids 3 Result Diagram: 02/01/17 0533 01/30/17 1354 Imaging Last Impressions Neck CTA 01/29/17 0000 Signed Impressions: Service Date/Time: January 20:24 - CONCLUSION: 1. Minimal focal stenosis involving the origin of the left common carotid artery. 2. Bovine arch. 3. No significant stenosis or occlusion of the internal carotid arteries. 4. Extensive spondylosis, multilevel spinal stenoses and bilateral foraminal narrowing are noted within the cervical spine. Prince Allen MD Head Magnetic Resonance Angiography 01/29/17 Signed Impressions: Service Date/Time: January 11:56 - CONCLUSION: 1. Suspect thrombus in the right M1 segment of the middle cerebral artery. Confirmation with CTA of the brain is recommended. Saidq Sherwood MD Head CTA 01/29/17 Signed Impressions: Service Date/Time: January 20:24 - CONCLUSION: 1. Decreased signal in the right M1 segment noted on MRA exam does not correspond to the focal abnormality on CT exam and likely reflects tortuosity. 2. Unremarkable CTA examination of the head. Specifically, no evidence for large vessel occlusion or aneurysm. Tomasz Farmer MD Head CT 01/29/17 Signed Impressions: Service Date/Time: January 06:29 - CONCLUSION: Negative trauma CT with no evidence of hemorrhage. Ajith Tate MD Brain MRI 01/29/17 Signed Impressions: Service Date/Time: January 11:56 - CONCLUSION: 1. Minimal nonspecific white matter changes. 2. No acute infarction Sadiq Sherwood MD Abdomen/Pelvis CT 01/28/17 Signed Impressions: Service Date/Time: Saturday, January 28, 2017 20:28 - CONCLUSION: 1. Fatty liver. 2. 5.7 x 3.5 cm cystic lesion within the right hemipelvis posteriorly. Outpatient ultrasound of the pelvis may be helpful for further characterization of this finding if clinically indicated. 3. Posterior bibasilar atelectasis. 4. Degenerative changes and scoliosis of the thoracolumbar spine. Prince Allen MD Objective Remarks GENERAL: This is a well-nourished, well-developed patient, in no apparent distress. CARDIOVASCULAR: tachycardic with regular rhythm without murmurs, gallops, or rubs. RESPIRATORY: Clear to auscultation. Breath sounds equal bilaterally. No wheezes , rales, or rhonchi. GASTROINTESTINAL: Abdomen soft, non-tender, nondistended. Normal, active bowel sounds MUSCULOSKELETAL: Extremities without clubbing, cyanosis, or edema. NEURO: Alert & Oriented x4 to person, place, time, situation. Moves all ext x4 Procedures EGD Medications and IVs Current Medications Ondansetron HCl (Zofran Inj) 4 mg ONCE ONCE IVP Last administered on 19:03; Start 01/28/17 at 18:00; Stop 01/28/17 at 18:01; Status DC Sodium Chloride (NS Flush) 2 ml UNSCH PRN IV FLUSH FLUSH AFTER USING IV ACCESS Last administered on 01/28/17 19:03; Start 01/28/17 at 18:00; Stop 01/29/17 at 08:52; Status DC Sodium Chloride 500 ml @ 500 mls/hr BOLUS ONCE IV Last administered on 20:17; Start 01/28/17 at 20:00; Stop 01/28/17 at 20:59; Status DC Metoclopramide HCl (Reglan Inj) 10 mg ONCE ONCE IV PUSH Last administered on 01/28/17 20:18; Start 01/28/17 at 20:00; Stop 01/28/17 at 20:01; Status DC Metoprolol Tartrate (Lopressor) 25 mg ONCE ONCE PO Last administered on 20:54; Start 01/28/17 at 20:15; Stop 01/28/17 at 20:16; Status DC Ondansetron HCl (Zofran Inj) 4 mg ONCE ONCE IV PUSH Last administered on 20:56; Start 01/28/17 at 21:00; Stop 01/28/17 at 21:01; Status DC Iohexol (Omnipaque 350 Inj) 97 ml STK-MED ONCE IVCONTRAST Last administered on 01/28/17 20:49; Start 01/28/17 at 20:49; Stop 01/28/17 at 20:50; Status DC Hydralazine HCl (Apresoline Inj) 10 mg ONCE ONCE IV PUSH Last administered on 01/28/17 22:05; Start 01/28/17 at 22:00; Stop 01/28/17 at 22:01; Status DC Sodium Chloride (NS Flush) 2 ml UNSCH PRN IV FLUSH FLUSH AFTER USING IV ACCESS Last administered on 01/30/17 08:31; Start 01/28/17 at 22:15 Sodium Chloride (NS Flush) 2 ml BID IV FLUSH Last administered on 01/31/17 08: 57; Start 01/29/17 at 09:00 Naloxone HCl (Narcan Inj) 0.4 mg UNSCH PRN IV PUSH SEE LABEL COMMENTS; Start 01/28/17 at 22:15 Enalaprilat (Vasotec Inj) 2.5 mg Q6H PRN IV PUSH BP>160/90 Last administered on 01/31/17 17:28; Start 01/28/17 at 22:15 Hydralazine HCl (Apresoline Inj) 10 mg Q30M PRN IV PUSH bp>160/90 Last administered on 01/29/17 04:53; Start 01/29/17 at 02:15; Stop 01/29/17 at 05:33 ; Status DC Promethazine HCl (Phenergan Inj) 12.5 mg Q4H PRN IM nausea not relieved by zofran Last administered on 01/29/17 09:45; Start 01/29/17 at 02:15 Miscellaneous Information Patient in critical care unit? Ass... [id number] .XX ; Start 01/29/17 at 04:45 Chlorhexidine Gluconate (Chlorhexidine 2% Cloth) 3 pack DAILY@04 TOPICAL Last administered on 01/30/17 04:00; Start 01/30/17 at 04:00; Stop 02/03/17 at 04: 01 Chlorhexidine Gluconate (Chlorhexidine 2% Cloth) 3 pack UNSCH PRN TOPICAL HYGIENIC CARE; Start 01/29/17 at 04:45; Stop 02/03/17 at 04:40 Ondansetron HCl (Zofran Inj) 4 mg Q6HR PRN IV PUSH nausea Last administered on 01/29/17 14:08; Start 01/29/17 at 05:45 Pantoprazole Sodium 80 mg/ Sodium Chloride 35 ml @ 420 mls/hr Q5M ONCE IV Last administered on 01/29/17 09:45; Start 01/29/17 at 06:51; Stop 01/29/17 at 06:55; Status DC Pantoprazole Sodium 80 mg/ Sodium Chloride 100 ml @ 10 mls/hr Q10H IV Last administered on 01/31/17 22:03; Start 01/29/17 at 07:00 Potassium Chloride 100 ml @ 50 mls/hr Q2H IV Last administered on 01/29/17 09 :45; Start 01/29/17 at 06:00; Stop 01/29/17 at 09:59; Status DC Dextrose/Sodium Chloride 1,000 ml @ 84 mls/hr [id number] IV ; Start 01/29/17 at 06 :00; Stop 01/29/17 at 08:31; Status DC Dextrose (D50w (Vial) Inj) 50 ml UNSCH PRN IV PUSH HYPOGLYCEMIA-SEE COMMENTS; Start 01/29/17 at 06:00; Stop 01/29/17 at 08:52; Status DC Glucagon (Glucagon Inj) 1 mg UNSCH PRN OTHER HYPOGLYCEMIA-SEE COMMENTS; Start 01/29/17 at 06:00; Stop 01/29/17 at 08:52; Status DC Pneumococcal Polyvalent Vaccine (Pneumovax-23 Inj) 25 mcg ONCE ONCE IM Last administered on 01/30/17 08:30; Start 01/30/17 at 09:00; Stop 01/30/17 at 09:01 ; Status DC Influenza Virus Vaccine (Flu (Quadrivalent) Vaccine Inj) 0.5 ml ONCE ONCE IM Last administered on 01/30/17 08:29; Start 01/30/17 at 09:00; Stop 01/30/17 at 09:01; Status DC Metoprolol Tartrate (Lopressor) 25 mg BID PO Last administered on 01/31/17 20: 05; Start 01/29/17 at 09:00 Sodium Chloride 1,000 ml @ 60 mls/hr [id number] IV Last administered on 15:22; Start 01/29/17 at 08:30; Stop 01/31/17 at 19:35; Status DC Dextrose (D50w (Vial) Inj) 50 ml UNSCH PRN IV PUSH HYPOGLYCEMIA-SEE COMMENTS; Start 01/29/17 at 08:30 Glucagon (Glucagon Inj) 1 mg UNSCH PRN OTHER HYPOGLYCEMIA-SEE COMMENTS; Start 01/29/17 at 08:30 Insulin Aspart (NovoLOG SUPPLEMENTAL SCALE) 1 ACHS SLIDING SCALE SQ ; Start at 12:00 Diltiazem HCl (Cardizem Inj) 20 mg ONCE ONCE IV Last administered on 10:33; Start 01/29/17 at 10:00; Stop 01/29/17 at 10:01; Status DC Diltiazem HCl (Cardizem) 30 mg QID PO Last administered on 01/31/17 20:05; Start 01/29/17 at 14:00 Diltiazem HCl (Cardizem Inj) 20 mg NOW ONCE IV PUSH Last administered on 14:08; Start 01/29/17 at 14:00; Stop 01/29/17 at 14:04; Status DC Diltiazem HCl 125 mg/Sodium Chloride 125 ml @ 5 mls/hr TITRATE PRN IV Tachycardia; Start 01/29/17 at 15:00 Iohexol (Omnipaque 350 Inj) 80 ml STK-MED ONCE IVCONTRAST Last administered on 01/29/17 20:48; Start 01/29/17 at 20:48; Stop 01/29/17 at 20:49; Status DC Miscellaneous Information ALL NURSING DEPARTME... UNSCH PRN .XX SEE LABEL COMMENTS; Start 01/30/17 at 12:30; Stop 01/31/17 at 12:29; Status DC Epinephrine HCl (EPINEPHrine (1:10,000) INJ) 0.3 mg STK-MED ONCE SQ ; Start 01/30/17 at 10:00; Stop 01/30/17 at 20:21; Status DC Clonidine (Catapres) 0.1 mg NOW ONCE PO Last administered on 01/31/17 20:05; Start 01/31/17 at 19:45; Stop 01/31/17 at 19:46; Status DC A/P Assessment and Plan A/P -GI bleed with persistent nausea/vomiting continue with Protonix and antiemetics as needed- continue to monitor H/H- s/p EGD: with LA Class A esophagitis , normal stomach mucosa , Single ulcer ranging between 5-9mm in size was found in the duodenal bulb s/p Submucosal injection of 3ml of epinephrine 1:10,000 around the bleeding site. GI following. -anemia- acute due to GI bleed- with some drop in H/H- will monitor; H/H in am. - atrial fibrillation with RVR-HR controlled- continue metoprolol and cardizem. echo with EF55%- cardiology consult appreciated. no anticoagulation due to GI bleed- f/u with cardiology as outpatient. -hypertension;continue cardizem and metoprolol- will monitor and adjust the regimen as needed. -diabetes mellitus; accu-check with SSI -DVT prophylaxis; SCD's- no chemical prophylaxis due to GI bleed. -consulted PT. Discharge Planning dc home tomorrow if stable and cleared by GI. Girma Julian MD Feb 01, 2017 07:36
[2017-02-01] MEDS: INSULIN ASPART SUPPLEMENTAL SCALE SQ SCH ×4 (08:00→20:37)
[2017-02-01] MEDS: METOPROLOL TARTRATE 25 MG TAB PO SCH ×2 (08:58→20:36)
[2017-02-01] MEDS: DILTIAZEM HCL 30 MG TAB PO SCH ×4 (08:58→20:36)
[2017-02-01] MEDS: PANTOPRAZOLE INJ 80 MG in SODIUM CHLORIDE 0.9% INJ 100 ML IV SCH ×2 (09:03→17:45)
[2017-02-01] MEDS: SODIUM CHLORIDE 0.9% FLUSH 10 ML FLUSH IV FLUSH SCH ×2 (09:05→20:37)
--- NOTE | 2017-02-01 10:19 | HHI.GIFU ---
Subjective Remarks Resting in bed in no apparent distress. Denies abdominal pain. Denies blood in stool. Denies nausea or vomiting. Tolerating diet. Family at bedside. (Olimpia Steele) Objective Vitals I&O Vital Signs Date Time Temp Pulse Resp B/P (MAP) Pulse Ox O2 Delivery O2 Flow Rate FiO2 02/01/17 07:00 87 02/01/17 07:00 98.6 75 19 194/87 (122) 95 02/01/17 07:00 73 02/01/17 06:19 72 02/01/17 05:05 72 02/01/17 04:52 70 02/01/17 03:43 98.3 73 18 168/69 (102) 93 02/01/17 03:43 68 02/01/17 02:06 66 02/01/17 01:13 74 02/01/17 00:01 67 01/31/17 23:44 98.5 70 19 127/55 (79) 94 01/31/17 23:44 67 01/31/17 22:17 79 01/31/17 20:00 88 01/31/17 19:20 80 01/31/17 19:00 98.7 81 19 195/80 (118) 94 01/31/17 18:16 96 21 01/31/17 18:00 81 01/31/17 17:00 87 01/31/17 16:00 80 01/31/17 15:23 98.2 79 16 175/82 (113) 96 01/31/17 15:00 82 01/31/17 14:00 82 01/31/17 13:40 95 01/31/17 13:00 81 01/31/17 12:00 79 01/31/17 11:35 98.1 79 16 155/71 (99) 95 01/31/17 11:00 78 I/O 01/31/17 01/31/17 01/31/17 02/01/17 02/01/17 02/01/17 07:00 15:00 23:00 07:00 15:00 23:00 Intake Total 240 ml 943 ml 550 ml Output Total 310 ml 850 ml Balance -70 ml 943 ml -300 ml Intake Oral 240 ml 720 ml 480 ml IV Total 223 ml 70 ml Output Urine Total 310 ml 850 ml # Voids 3 Laboratory Laboratory Tests Test 02/01/17 05:33 Hemoglobin 8.9 Hematocrit 25.1 Blood Urea Nitrogen 13 Creatinine 0.72 Random Glucose 97 Calcium Level 8.0 Sodium Level 141 Potassium Level 3.4 Chloride Level 107 Carbon Dioxide Level 25.1 Anion Gap 9 Estimat Glomerular Filtration Rate 77 Imaging Last Impressions Neck CTA 01/29/17 0000 Signed Impressions: Service Date/Time: January 20:24 - CONCLUSION: 1. Minimal focal stenosis involving the origin of the left common carotid artery. 2. Bovine arch. 3. No significant stenosis or occlusion of the internal carotid arteries. 4. Extensive spondylosis, multilevel spinal stenoses and bilateral foraminal narrowing are noted within the cervical spine. Prince Allen MD Head Magnetic Resonance Angiography 01/29/17 0000 Signed Impressions: Service Date/Time: January 11:56 - CONCLUSION: 1. Suspect thrombus in the right M1 segment of the middle cerebral artery. Confirmation with CTA of the brain is recommended. Sadiq Sherwood MD Head CTA 01/29/17 0000 Signed Impressions: Service Date/Time: January 20:24 - CONCLUSION: 1. Decreased signal in the right M1 segment noted on MRA exam does not correspond to the focal abnormality on CT exam and likely reflects tortuosity. 2. Unremarkable CTA examination of the head. Specifically, no evidence for large vessel occlusion or aneurysm. Tomasz Farmer MD Head CT 01/29/17 0000 Signed Impressions: Service Date/Time: January 06:29 - CONCLUSION: Negative trauma CT with no evidence of hemorrhage. Ajith Tate MD Brain MRI 01/29/17 0000 Signed Impressions: Service Date/Time: January 11:56 - CONCLUSION: 1. Minimal nonspecific white matter changes. 2. No acute infarction aSdiq Sherwood MD Abdomen/Pelvis CT 01/28/17 0000 Signed Impressions: Service Date/Time: Saturday, January 28, 2017 20:28 - CONCLUSION: 1. Fatty liver. 2. 5.7 x 3.5 cm cystic lesion within the right hemipelvis posteriorly. Outpatient ultrasound of the pelvis may be helpful for further characterization of this finding if clinically indicated. 3. Posterior bibasilar atelectasis. 4. Degenerative changes and scoliosis of the thoracolumbar spine. Prince Allen MD Physical Exam HEENT: Normocephalic; atraumatic; no jaundice. CHEST: CTA CARDIAC: RRR ABDOMEN: Soft, nondistended, nontender; no hepatosplenomegaly; bowel sounds are present in all four quadrants. EXTREMITIES: No clubbing, cyanosis, or edema. SKIN: Normal; no rash; no jaundice. GENETIC COORDINATOR: No focal deficits; alert and oriented times three. (Olimpia Steele) Assessment and Plan Plan ASSESSMENT: - Nausea and vomiting, resolved. - Epigastric discomfort, resolved. Had episode of melena. S/P EGD 01/30/17--1. LA Class A esophagitis. 2. The mucosa of the stomach appeared normal. 3. Single ulcer ranging between 5-9 mm in size was found in the duodenal bulb; submucosal injection of epinephrine was performed. No further dark stools noted. Denies abdominal pain. HH noted to have dropped. 01/30/17--HH 11.3/33.5, 02/01/17--HH 8.9/25.1 PLAN: - Soft Diet - PPI - Avoid NSAIDs - Monitor HH, check HH in the AM - Notify GI of active bleeding - If further bleeding will need embolization - Repeat EGD in 4 weeks - Consider colonoscopy as outpatient - Supportive care - Further recommendations to follow based on the results of above Patient seen and examined by Dr. Dodson and myself and this note is written on his behalf. (Olimpia Steele) Plan Patient was seen and examined, agree with above note, hemoglobin is lower today , could be dilutional, no sign of active bleeding, we will repeat hemoglobin tomorrow to ensure stability, if drop down we may need to do upper endoscopy soon to rule out recurrent bleeding (Myesha Dodson MD) Olimpia Steele Feb 01, 2017 10:19 Myesha Dodson MD Feb 01, 2017 14:10
[2017-02-01] MEDS: ENALAPRILAT 2.5 MG/2 ML VIAL IV PUSH PRN (15:28)
[2017-02-02] VITALS (21 sets, daily range): BP systolic 147–207; BP diastolic 73–90; PULSE 68–97; RESP 16–18; TEMP 98.1–99.3; O2SAT 95–96
[2017-02-02] MEDS: ENALAPRILAT 2.5 MG/2 ML VIAL IV PUSH PRN (00:47)
[2017-02-02] MEDS ORDERED: cloNIDine HCL 0.2 MG TAB PO SCH (01:45)
[2017-02-02] MEDS: PANTOPRAZOLE INJ 80 MG in SODIUM CHLORIDE 0.9% INJ 100 ML IV SCH ×2 (01:59→11:00)
[2017-02-02] MEDS: CHLORHEXIDINE GLUCONATE 2 % 1 PACK (2 CLOTHS)(taper/protocol) TOPICAL SCH (04:00)
[2017-02-02 06:25] LABS: HEMATOCRIT 27.6 % (35.0-46.0)
[2017-02-02] MEDS: INSULIN ASPART SUPPLEMENTAL SCALE SQ SCH ×3 (08:00→17:00)
[2017-02-02] MEDS: SODIUM CHLORIDE 0.9% FLUSH 10 ML FLUSH IV FLUSH SCH (08:26)
[2017-02-02] MEDS: METOPROLOL TARTRATE 25 MG TAB PO SCH (08:27)
[2017-02-02] MEDS: DILTIAZEM HCL 30 MG TAB PO SCH ×3 (08:27→17:15)
--- NOTE | 2017-02-02 09:57 | HHI.PR ---
Subjective Remarks in no acute distress. no further GI bleed. no abdominal pain, nausea or vomiting. says that she feels weak. d/w the RN and no acute issues over night. Objective Vitals Vital Signs Date Time Temp Pulse Resp B/P (MAP) Pulse Ox O2 Delivery O2 Flow Rate FiO2 02/02/17 09:01 77 02/02/17 08:32 71 02/02/17 08:32 99.3 76 18 165/75 (105) 95 02/02/17 07:12 95 21 02/02/17 06:00 68 02/02/17 05:00 70 02/02/17 04:00 68 02/02/17 03:09 98.9 78 16 171/74 (106) 95 02/02/17 03:00 72 02/02/17 02:00 74 02/02/17 01:33 98.9 78 16 201/90 (127) 96 02/02/17 01:00 72 02/02/17 00:50 194/90 (124) 02/02/17 00:40 98.9 97 16 207/87 (127) 96 02/02/17 00:00 72 02/01/17 23:00 70 02/01/17 22:00 74 02/01/17 21:00 76 02/01/17 20:30 98.9 77 16 181/88 (119) 96 02/01/17 20:00 78 02/01/17 19:00 76 02/01/17 18:05 75 02/01/17 17:00 79 02/01/17 16:00 73 02/01/17 15:30 165/76 (105) 02/01/17 15:00 98.3 73 17 172/77 (108) 95 02/01/17 15:00 75 02/01/17 14:00 75 02/01/17 13:02 68 02/01/17 12:00 69 02/01/17 11:00 71 02/01/17 11:00 99.4 72 18 145/74 (97) 95 02/01/17 10:00 74 I/O 02/01/17 02/01/17 02/01/17 02/02/17 02/02/17 02/02/17 07:00 15:00 23:00 07:00 15:00 23:00 Intake Total 550 ml 1050 ml 240 ml Output Total 850 ml 500 ml Balance -300 ml 550 ml 240 ml Intake Oral 480 ml 960 ml 240 ml IV Total 70 ml 90 ml Output Urine Total 850 ml 500 ml # Voids 4 # Bowel Movements 0 Result Diagram: 02/02/17 0512 02/01/17 0533 Imaging Last Impressions Neck CTA 01/29/17 Signed Impressions: Service Date/Time: January 20:24 - CONCLUSION: 1. Minimal focal stenosis involving the origin of the left common carotid artery. 2. Bovine arch. 3. No significant stenosis or occlusion of the internal carotid arteries. 4. Extensive spondylosis, multilevel spinal stenoses and bilateral foraminal narrowing are noted within the cervical spine. Prince Allen MD Head Magnetic Resonance Angiography 01/29/17 Signed Impressions: Service Date/Time: January 11:56 - CONCLUSION: 1. Suspect thrombus in the right M1 segment of the middle cerebral artery. Confirmation with CTA of the brain is recommended. Sadiq Sherwood MD Head CTA 01/29/17 Signed Impressions: Service Date/Time: January 20:24 - CONCLUSION: 1. Decreased signal in the right M1 segment noted on MRA exam does not correspond to the focal abnormality on CT exam and likely reflects tortuosity. 2. Unremarkable CTA examination of the head. Specifically, no evidence for large vessel occlusion or aneurysm. Tomasz Farmer MD Head CT 01/29/17 Signed Impressions: Service Date/Time: January 06:29 - CONCLUSION: Negative trauma CT with no evidence of hemorrhage. Ajith Tate MD Brain MRI 01/29/17 Signed Impressions: Service Date/Time: January 11:56 - CONCLUSION: 1. Minimal nonspecific white matter changes. 2. No acute infarction Sadiq Sherwood MD Abdomen/Pelvis CT 01/28/17 Signed Impressions: Service Date/Time: Saturday, January 28, 2017 20:28 - CONCLUSION: 1. Fatty liver. 2. 5.7 x 3.5 cm cystic lesion within the right hemipelvis posteriorly. Outpatient ultrasound of the pelvis may be helpful for further characterization of this finding if clinically indicated. 3. Posterior bibasilar atelectasis. 4. Degenerative changes and scoliosis of the thoracolumbar spine. Prince Allen MD Objective Remarks GENERAL: This is a well-nourished, well-developed patient, in no apparent distress. CARDIOVASCULAR: tachycardic with regular rhythm without murmurs, gallops, or rubs. RESPIRATORY: Clear to auscultation. Breath sounds equal bilaterally. No wheezes , rales, or rhonchi. GASTROINTESTINAL: Abdomen soft, non-tender, nondistended. Normal, active bowel sounds MUSCULOSKELETAL: Extremities without clubbing, cyanosis, or edema. NEURO: Alert & Oriented x4 to person, place, time, situation. Moves all ext x4 Procedures EGD Medications and IVs Inpatient Medications Chlorhexidine Gluconate (Chlorhexidine 2% Cloth) 3 pack UNSCH PRN TOPICAL HYGIENIC CARE; Start 01/29/17 at 04:45; Stop 02/03/17 at 04:40 Clonidine (Catapres) 0.2 mg NOW PO Last administered on 02/02/17 01:59; Start 02/02/17 at 01:45; Stop 02/02/17 at 03:30; Status DC Dextrose (D50w (Vial) Inj) 50 ml UNSCH PRN IV PUSH HYPOGLYCEMIA-SEE COMMENTS; Start 01/29/17 at 08:30 Dextrose/Sodium Chloride 1,000 ml @ 84 mls/hr [id number] IV ; Start 01/29/17 at 06 :00; Stop 01/29/17 at 08:31; Status DC Diltiazem HCl (Cardizem Inj) 20 mg NOW ONCE IV PUSH Last administered on 14:08; Start 01/29/17 at 14:00; Stop 01/29/17 at 14:04; Status DC Diltiazem HCl (Cardizem) 30 mg QID PO Last administered on 02/02/17 08:27; Start 01/29/17 at 14:00 Diltiazem HCl 125 mg/Sodium Chloride 125 ml @ 5 mls/hr TITRATE PRN IV Tachycardia; Start 01/29/17 at 15:00 Enalaprilat (Vasotec Inj) 2.5 mg Q6H PRN IV PUSH BP>160/90 Last administered on 02/02/17 00:47; Start 01/28/17 at 22:15 Glucagon (Glucagon Inj) 1 mg UNSCH PRN OTHER HYPOGLYCEMIA-SEE COMMENTS; Start 01/29/17 at 08:30 Hydralazine HCl (Apresoline Inj) 10 mg Q30M PRN IV PUSH bp>160/90 Last administered on 01/29/17 04:53; Start 01/29/17 at 02:15; Stop 01/29/17 at 05:33 ; Status DC Influenza Virus Vaccine (Flu (Quadrivalent) Vaccine Inj) 0.5 ml ONCE ONCE IM Last administered on 01/30/17 08:29; Start 01/30/17 at 09:00; Stop 01/30/17 at 09:01; Status DC Insulin Aspart (NovoLOG SUPPLEMENTAL SCALE) 1 ACHS SLIDING SCALE SQ Last administered on 02/01/17 12:00; Start 01/29/17 at 12:00 Metoclopramide HCl (Reglan Inj) 10 mg ONCE ONCE IV PUSH Last administered on 01/28/17 20:18; Start 01/28/17 at 20:00; Stop 01/28/17 at 20:01; Status DC Metoprolol Tartrate (Lopressor) 25 mg BID PO Last administered on 02/02/17 08 :27; Start 01/29/17 at 09:00 Miscellaneous Information ALL NURSING DEPARTME... UNSCH PRN .XX SEE LABEL COMMENTS; Start 01/30/17 at 12:30; Stop 01/31/17 at 12:29; Status DC Naloxone HCl (Narcan Inj) 0.4 mg UNSCH PRN IV PUSH SEE LABEL COMMENTS; Start 01/28/17 at 22:15 Ondansetron HCl (Zofran Inj) 4 mg Q6HR PRN IV PUSH nausea Last administered on 01/29/17 14:08; Start 01/29/17 at 05:45 Pantoprazole Sodium 80 mg/ Sodium Chloride 100 ml @ 10 mls/hr Q10H IV Last administered on 02/02/17 01:59; Start 01/29/17 at 07:00 Pneumococcal Polyvalent Vaccine (Pneumovax-23 Inj) 25 mcg ONCE ONCE IM Last administered on 01/30/17 08:30; Start 01/30/17 at 09:00; Stop 01/30/17 at 09:01 ; Status DC Potassium Chloride 100 ml @ 50 mls/hr Q2H IV Last administered on 01/29/17 09 :45; Start 01/29/17 at 06:00; Stop 01/29/17 at 09:59; Status DC Promethazine HCl (Phenergan Inj) 12.5 mg Q4H PRN IM nausea not relieved by zofran Last administered on 01/29/17 09:45; Start 01/29/17 at 02:15 Sodium Chloride 1,000 ml @ 60 mls/hr [id number] IV Last administered on 15:22; Start 01/29/17 at 08:30; Stop 01/31/17 at 19:35; Status DC Sodium Chloride (NS Flush) 2 ml BID IV FLUSH Last administered on 02/01/17 09 :05; Start 01/29/17 at 09:00 A/P Assessment and Plan A/P -GI bleed with persistent nausea/vomiting continue with Protonix and antiemetics as needed- continue to monitor H/H- s/p EGD: with LA Class A esophagitis , normal stomach mucosa , Single ulcer ranging between 5-9mm in size was found in the duodenal bulb s/p Submucosal injection of 3ml of epinephrine 1:10,000 around the bleeding site. GI following. -anemia- acute due to GI bleed- H/H fairly stable. - atrial fibrillation with RVR-HR controlled- continue metoprolol and cardizem. echo with EF55%- cardiology consult appreciated. no anticoagulation due to GI bleed- f/u with cardiology as outpatient. -hypertension;continue cardizem and metoprolol- -diabetes mellitus; accu-check with SSI -DVT prophylaxis; SCD's- no chemical prophylaxis due to GI bleed. -consulted PT. Discharge Planning dc planning within the next 24 hrs- pending PT reevaluation today and GI clearance. Girma Julian MD Feb 02, 2017 09:57
[2017-02-02] MEDS ORDERED: PROT40TA PO (09:59)
--- NOTE | 2017-02-02 13:09 | HHI.GIFU ---
Subjective Remarks awake, answers simple questions Denies any abd pain No active bleeding, hgb stable at 9.4 Temp 99.3 (Genoveva Rincon) Objective Vitals I&O Vital Signs Date Time Temp Pulse Resp B/P (MAP) Pulse Ox O2 Delivery O2 Flow Rate FiO2 02/02/17 13:04 70 02/02/17 12:19 75 02/02/17 11:40 70 02/02/17 11:40 98.1 77 18 147/73 (97) 95 02/02/17 10:31 68 02/02/17 09:01 77 02/02/17 08:32 71 02/02/17 08:32 99.3 76 18 165/75 (105) 95 02/02/17 07:12 95 21 02/02/17 06:00 68 02/02/17 05:00 70 02/02/17 04:00 68 02/02/17 03:09 98.9 78 16 171/74 (106) 95 02/02/17 03:00 72 02/02/17 02:00 74 02/02/17 01:33 98.9 78 16 201/90 (127) 96 02/02/17 01:00 72 02/02/17 00:50 194/90 (124) 02/02/17 00:40 98.9 97 16 207/87 (127) 96 02/02/17 00:00 72 02/01/17 23:00 70 02/01/17 22:00 74 02/01/17 21:00 76 02/01/17 20:30 98.9 77 16 181/88 (119) 96 02/01/17 20:00 78 02/01/17 19:00 76 02/01/17 18:05 75 02/01/17 17:00 79 02/01/17 16:00 73 02/01/17 15:30 165/76 (105) 02/01/17 15:00 98.3 73 17 172/77 (108) 95 02/01/17 15:00 75 02/01/17 14:00 75 I/O 02/01/17 02/01/17 02/01/17 02/02/17 02/02/17 02/02/17 07:00 15:00 23:00 07:00 15:00 23:00 Intake Total 550 ml 1050 ml 240 ml Output Total 850 ml 500 ml Balance -300 ml 550 ml 240 ml Intake Oral 480 ml 960 ml 240 ml IV Total 70 ml 90 ml Output Urine Total 850 ml 500 ml # Voids 4 # Bowel Movements 0 Laboratory Laboratory Tests Test 02/02/17 05:12 Hemoglobin 9.4 Hematocrit 27.6 Imaging Last Impressions Neck CTA 01/29/17 Signed Impressions: Service Date/Time: January 20:24 - CONCLUSION: 1. Minimal focal stenosis involving the origin of the left common carotid artery. 2. Bovine arch. 3. No significant stenosis or occlusion of the internal carotid arteries. 4. Extensive spondylosis, multilevel spinal stenoses and bilateral foraminal narrowing are noted within the cervical spine. Prince Allen MD Head Magnetic Resonance Angiography 01/29/17 0000 Signed Impressions: Service Date/Time: January 11:56 - CONCLUSION: 1. Suspect thrombus in the right M1 segment of the middle cerebral artery. Confirmation with CTA of the brain is recommended. Sadiq Sherwood MD Head CTA 01/29/17 0000 Signed Impressions: Service Date/Time: January 20:24 - CONCLUSION: 1. Decreased signal in the right M1 segment noted on MRA exam does not correspond to the focal abnormality on CT exam and likely reflects tortuosity. 2. Unremarkable CTA examination of the head. Specifically, no evidence for large vessel occlusion or aneurysm. Tomasz Farmer MD Head CT 01/29/17 0000 Signed Impressions: Service Date/Time: January 06:29 - CONCLUSION: Negative trauma CT with no evidence of hemorrhage. Ajith Tate MD Brain MRI 01/29/17 0000 Signed Impressions: Service Date/Time: January 11:56 - CONCLUSION: 1. Minimal nonspecific white matter changes. 2. No acute infarction Sadiq Sherwood MD Abdomen/Pelvis CT 01/28/17 0000 Signed Impressions: Service Date/Time: Saturday, January 28, 2017 20:28 - CONCLUSION: 1. Fatty liver. 2. 5.7 x 3.5 cm cystic lesion within the right hemipelvis posteriorly. Outpatient ultrasound of the pelvis may be helpful for further characterization of this finding if clinically indicated. 3. Posterior bibasilar atelectasis. 4. Degenerative changes and scoliosis of the thoracolumbar spine. Prince Allen MD Physical Exam HEENT: Normocephalic; atraumatic; no jaundice. CHEST: CTA CARDIAC: RRR, atrial fibrillation controlled rate ABDOMEN: Round, Soft, nondistended, nontender; no hepatosplenomegaly; bowel sounds are present in all four quadrants. EXTREMITIES: No clubbing, cyanosis, or edema. SKIN: Normal; no rash; no jaundice. ROUTE DELIVERY MANAGER: No focal deficits; alert and oriented times three. (Genoveva Rincon) Assessment and Plan Plan - Nausea and vomiting, resolved. - Epigastric discomfort, resolved., Hospital history of melena. S/P EGD --1. LA Class A esophagitis - Constipation 2. PLAN: - Soft Diet - Okay for patient to take aspirin 81 mg, as needed for her atrial fibrillation - Added Senokot S2 tabs twice a day as needed for bowel regimen, Dulcolax suppository 1 today - PPI IV, changed to Protonix 40 mg daily by mouth - Avoid NSAIDs - Monitor HH, stable at 9.4 today - Notify GI of active bleeding - - Repeat EGD in 4 weeks - Consider colonoscopy as outpatient - Supportive care, according to discharge planning patient is going to [facility] either today or tomorrows, when insurance approved. - GI will sign off since patient's GI bleed has resolved and hemoglobin is stable, thank you for the consult. Please call for any further needs - Further recommendations to follow based on the results of above Patient seen and examined by Dr. Maher and myself and this note is written on his behalf. (Genoveva Rincon) Physician Comments Patient seen and examined Agree with above Continue with current supportive care Monitor labs Okay for discharge to follow-up as outpatient (Nils Maher MD) Genoveva Rincon Feb 02, 2017 13:09 Nils Maher MD Feb 02, 2017 19:31
[2017-02-02] MEDS ORDERED: BISACODYL 10 MG SUPP RECTAL SCH (13:15)
[2017-02-02] MEDS ORDERED: DOCUSATE SODIUM 50 MG/SENNA 8.6 MG TAB PO PRN (13:15)
[2017-02-02] MEDS ORDERED: CARD120C4 PO (14:07)
[2017-02-02] MEDS ORDERED: ASPI81TA23 PO (14:07)
--- NOTE | 2017-02-02 14:10 | HHI.DS ---
Discharge Summary Admission Date Jan 29, 2017 at 02:06 Discharge Date: Feb 02, 2017 Admitting Diagnosis hypertensive urgency, generalized weakness (1) GI bleed ICD Code: K92.2 - Gastrointestinal hemorrhage, unspecified Diagnosis: Principal (2) Atrial fibrillation ICD Code: I48.91 - Unspecified atrial fibrillation Diagnosis: Principal Procedures EGD Brief History - From Admission started thursday nasua, vomiting 3x a day, brownish vomit no diarrha liottle black color dstool no abdominal pain or chest pain last thu had a fall hit side of her face was walking down court for supeanoedm no stress just wlked off the curb and thats why fell no syncope no blood thinners head ct on 01/27 wnl CBC/BMP: 02/02/17 0512 02/01/17 0533 Significant Findings Laboratory Tests Test 02/01/17 05:33 02/02/17 05:12 Hemoglobin 8.9 GM/DL (11.6-15.3) 9.4 GM/DL (11.6-15.3) Hematocrit 25.1 % (35.0-46.0) 27.6 % (35.0-46.0) Calcium Level 8.0 MG/DL (8.5-10.1) Potassium Level 3.4 MEQ/L (3.5-5.1) Estimat Glomerular Filtration Rate 77 ML/MIN (>89) Imaging Last Impressions Neck CTA 01/29/17 0000 Signed Impressions: Service Date/Time: January 20:24 - CONCLUSION: 1. Minimal focal stenosis involving the origin of the left common carotid artery. 2. Bovine arch. 3. No significant stenosis or occlusion of the internal carotid arteries. 4. Extensive spondylosis, multilevel spinal stenoses and bilateral foraminal narrowing are noted within the cervical spine. Prince Allen MD Head Magnetic Resonance Angiography 01/29/17 0000 Signed Impressions: Service Date/Time: January 11:56 - CONCLUSION: 1. Suspect thrombus in the right M1 segment of the middle cerebral artery. Confirmation with CTA of the brain is recommended. aSdiq Sherwood MD Head CTA 01/29/17 0000 Signed Impressions: Service Date/Time: January 20:24 - CONCLUSION: 1. Decreased signal in the right M1 segment noted on MRA exam does not correspond to the focal abnormality on CT exam and likely reflects tortuosity. 2. Unremarkable CTA examination of the head. Specifically, no evidence for large vessel occlusion or aneurysm. Tomasz Farmer MD Head CT 01/29/17 Signed Impressions: Service Date/Time: January 06:29 - CONCLUSION: Negative trauma CT with no evidence of hemorrhage. Ajith Tate MD Brain MRI 01/29/17 Signed Impressions: Service Date/Time: January 11:56 - CONCLUSION: 1. Minimal nonspecific white matter changes. 2. No acute infarction Sadiq Sherwood MD Abdomen/Pelvis CT 01/28/17 Signed Impressions: Service Date/Time: Saturday, January 28, 2017 20:28 - CONCLUSION: 1. Fatty liver. 2. 5.7 x 3.5 cm cystic lesion within the right hemipelvis posteriorly. Outpatient ultrasound of the pelvis may be helpful for further characterization of this finding if clinically indicated. 3. Posterior bibasilar atelectasis. 4. Degenerative changes and scoliosis of the thoracolumbar spine. Prince Allen MD PE at Discharge GENERAL: This is a well-nourished, well-developed patient, in no apparent distress. CARDIOVASCULAR: tachycardic with regular rhythm without murmurs, gallops, or rubs. RESPIRATORY: Clear to auscultation. Breath sounds equal bilaterally. No wheezes , rales, or rhonchi. GASTROINTESTINAL: Abdomen soft, non-tender, nondistended. Normal, active bowel sounds MUSCULOSKELETAL: Extremities without clubbing, cyanosis, or edema. NEURO: Alert & Oriented x4 to person, place, time, situation. Moves all ext x4 Hospital Course patient was admitted with GI bleed with persistent nausea/vomiting. she was seen by GI and underwent EGD; with LA Class A esophagitis , normal stomach mucosa , Single ulcer ranging between 5-9mm in size was found in the duodenal bulb s/p Submucosal injection of 3ml of epinephrine 1:10,000 around the bleeding site. H/H remained fairly stable- cleared by GI with outpatient f/u. she will be continued on Protonix. she was found to be in atrial fibrillation for which she was evaluated by cardiology. she was started on cardizem. no anticoagulation at this time due to GI bleed. she was cleared for baby aspirin per GI. she will be followed up by cardiology as outpatient. echo with EF55%- Pt Condition on Discharge: Fair Discharge Disposition: Discharge to SNF Discharge Time: > 30 minutes Discharge Instructions DIET: Follow Instructions for: Heart Healthy Diet, Diabetic Diet Activities you can perform: Regular-No Restrictions Follow up Referrals: Cardiology Gastroenterology PCP Follow-up New Medications: Aspirin DR (Aspirin EC) 81 Mg Tabdr 81 MG PO DAILY for a-fib for 30 Days, #30 TAB 0 Refills Diltiazem CD 24 HR (Cardizem CD 24 HR) 120 Mg Caper 120 MG PO DAILY for a-fib, #30 CAP 0 Refills Pantoprazole (Protonix) 40 Mg Tab 40 MG PO DAILY for Reflux, #30 TAB 0 Refills Continued Medications: Alpha Lipoic Acid (Alpha Lipoic Acid) 200 Mg Cap 600 MG PO DAILY for Nutritional Supplement, CAP 0 Refills Cholecalciferol (Vitamin D-3) 1,000 Unit Cap 1000 UNITS PO DAILY for Nutritional Supplement Gabapentin (Neurontin) 100 Mg Cap 100 MG PO HS for Pain Management, #30 CAP 0 Refills Glipizide (Glipizide) 5 Mg Tab 2.5 MG PO DAILY for Blood Sugar Management, #30 TAB 0 Refills Take 30 minutes before a meal Lpgmewtixsf-Vtwvbkqgyvh-Jpmodt (Move Free Joint Health Ad) 750 Mg-100 Mg-1.65 Mg -108 Mg Tab 1 TAB PO DAILY Lisinopril (Lisinopril) 5 Mg Tab 5 MG PO DAILY for Blood Pressure Management, #30 TAB 0 Refills Loratadine (Claritin) 10 Mg Tablet 10 MG PO DAILY Metformin (Metformin) 500 Mg Tab 500 MG PO BID for Blood Sugar Management, #60 TAB 0 Refills With Meals Metoprolol Tartrate (Metoprolol Tartrate) 25 Mg Tab 25 MG PO BID, #60 TAB 0 Refills Multiple Vitamin (Multiple Vitamin) 1 Tab 1 TAB PO DAILY for Nutritional Supplement, TAB 0 Refills [place]-3 Fatty Acids (Fish Oil Triple Strength 1400 mg) 900 Mg (253 Mg-647 Mg)-1, 400 Mg Cap 1400 MG PO DAILY for Nutritional Supplement Simvastatin (Zocor) 20 Mg Tab 20 MG PO HS for Cholesterol Management, #30 TAB 0 Refills Spironolactone (Aldactone) 25 Mg Tab 25 MG PO DAILY, #30 TAB 0 Refills Discontinued Medications: Amlodipine (Norvasc) 10 Mg Tab 10 MG PO DAILY for Blood Pressure Management, #30 TAB 0 Refills Aspirin (Aspirin) 325 Mg Tab 325 MG PO DAILY, #30 TAB 0 Refills Clonidine (Clonidine) 0.1 Mg Tab 0.1 MG PO BID PRN for SBP> OR = 180, DBP> OR = 100, #30 TAB 0 Refills Nitrofurantoin Macrocrystal (Macrodantin) 100 Mg Cap 100 MG PO BID for 5 Days, #10 CAP 0 Refills Girma Julian MD Feb 02, 2017 14:10
--- NOTE | 2017-02-02 14:11 | HHI.PR ---
Addendum To [facility] Progress Not Reason for addendum: Additonal documentation (patient was cleared by GI. seen by PT; recommended rehab. patient will be discharged to rehab when arrangements made. d/w the RN. time spent for discharge 35 min.) Girma Julian MD Feb 02, 2017 14:11
[2017-02-02] MEDS ORDERED: LISINOPRIL 5 MG TAB PO SCH (14:15)
[2017-02-03] MEDS ORDERED: PANTOPRAZOLE SOD 40 MG DELAYED RELEASE TAB PO SCH (09:00)
== END 2017-02-02 17:50 | DRG 378 ==
LOC: NEPC 15:18 → NEDA 22:01 → OBSVTOIN 01-29 02:06 → HIMN 01-29 04:20 → HCPC 01-30 14:40
PROVIDERS: ADMIT Internal Medicine; ATTEND Internal Medicine
PROC: 0W3P8ZZ Control Bleeding in Gastrointestinal Tract, Via Natural or Artificial Opening Endoscopic (ICD-10-PCS; principal; 2017-01-30 11:40)
DX: K26.4 Chronic or unspecified duodenal ulcer with hemorrhage (principal); D62 Acute posthemorrhagic anemia; I48.91 Unspecified atrial fibrillation; K76.0 Fatty (change of) liver, not elsewhere classified; I16.0 Hypertensive urgency; R63.0 Anorexia; I10 Essential (primary) hypertension; E11.9 Type 2 diabetes mellitus without complications; K21.0 Gastro-esophageal reflux disease with esophagitis; E78.00 Pure hypercholesterolemia, unspecified; R53.1 Weakness; Z91.14 Patient's other noncompliance with medication regimen; Z90.710 Acquired absence of both cervix and uterus; Z87.891 Personal history of nicotine dependence; Z80.9 Family history of malignant neoplasm, unspecified; Z84.89 Family history of other specified conditions; I45.10 Unspecified right bundle-branch block; Z23 Encounter for immunization; K59.00 Constipation, unspecified; W10.1XXA Fall (on)(from) sidewalk curb, initial encounter; Y93.01 Activity, walking, marching and hiking
CPT/HCPCS: 70450; 70496; 70498; 70544; 70551; 74177; 76937; 80048; 80053; 82550; 82948; 83605; 83690; 84484; 85014; 85018; 85025; 86850; 86900; 86901; 87641; 90686; 90732; 93005; 93306; 96361; 96374; 96376; C9113; G0378; J0171; J0360; J1815; J2405; J2550; J2765; J3480; J7030; J7040; Q2038; Q9967

== ENCOUNTER 2017-03-18 13:54 | Observation (INO) | payer OTHER, MEDICARE ==
[2017-03-18] MEDS ORDERED: SODIUM CHLORIDE 0.9% FLUSH 10 ML FLUSH IVF (15:15)
[2017-03-18 15:46] LABS: AUTOMATED NEUTROPHIL # 4.6 TH/MM3 (1.8-7.7); BASOPHIL # 0.1 TH/MM3 (0-0.2); BASOPHIL % 0.8 % (0.0-2.0); EOSINOPHIL # 0.5 TH/MM3 (0-0.4); HEMATOCRIT 37.2 % (35.0-46.0); HEMO FLAGS DIFF FINAL; HEMOGLOBIN 12.4 GM/DL (11.6-15.3); LYMPH % 23.1 % (9.0-44.0); LYMPHOCYTE # 1.7 TH/MM3 (1.0-4.8); MEAN CELL VOLUME 85.6 FL (80.0-100.0); MEAN CORPUSCULAR HEMOGLOBIN 28.6 PG (27.0-34.0); MEAN CORPUSCULAR HGB CONC 33.4 % (32.0-36.0); MEAN PLATELET VOLUME 8.4 FL (7.0-11.0); MONO % 7.7 % (0.0-8.0); MONOCYTE # 0.6 TH/MM3 (0-0.9); NEUT % 61.4 % (16.0-70.0); PLATELET COUNT 264 TH/MM3 (150-450); RED BLOOD COUNT 4.35 MIL/MM3 (4.00-5.30); RED CELL DISTRIBUTION WIDTH 15.4 % (11.6-17.2); WHITE BLOOD COUNT 7.6 TH/MM3 (4.0-11.0)
[2017-03-18 16:17] LABS: ALKALINE PHOSPHATASE 54 U/L (45-117); TOTAL BILIRUBIN ADULT 0.4 MG/DL (0.2-1.0); TOTAL PROTEIN 7.7 GM/DL (6.4-8.2)
[2017-03-18 16:26] LABS: ALBUMIN 3.9 GM/DL (3.4-5.0); ALT (GPT) 52 U/L (10-53); ANION GAP 8 MEQ/L (5-15); AST (GOT) 44 U/L (15-37); BICARBONATE 28.3 MEQ/L (21.0-32.0); BLOOD UREA NITROGEN 14 MG/DL (7-18); CALCIUM 9.6 MG/DL (8.5-10.1); CHLORIDE 106 MEQ/L (98-107); CREATININE 0.87 MG/DL (0.50-1.00); GLOMERULAR FILTRATION RATE 62 ML/MIN (>89); GLUCOSE,RANDOM 78 MG/DL (74-106); LIPASE 214 U/L (73-393); SODIUM (NA) 142 MEQ/L (136-145)
[2017-03-18 16:27] LABS: POTASSIUM 4.5 MEQ/L (3.5-5.1)
[2017-03-18 16:35] LABS: APTT (PATIENT) 24.3 SEC (24.3-30.1); INTERNATIONAL NORMALIZED RATIO 1.1 RATIO; PROTHROMBIN TIME - PATIENT 10.7 SEC (9.8-11.6)
[2017-03-18] MEDS ORDERED: SODIUM CHLORIDE 0.9% FLUSH 10 ML FLUSH IV FLUSH (16:45)
[2017-03-18] MEDS ORDERED: NALOXONE HCL 0.4 MG/ML AMP IV PUSH (16:45)
[2017-03-18] MEDS ORDERED: ONDANSETRON HCL 4 MG/2 ML VIAL IVP (16:45)
[2017-03-18] MEDS: PEG (High)/E-LYTE SOLN 4000 ML BTL PO (17:30)
[2017-03-18] MEDS ORDERED: DEXTROSE 50% IN WATER 50 ML VIAL(D50) IV PUSH (19:45)
[2017-03-18] MEDS ORDERED: GLUCAGON 1 MG/ML VIAL OTHER (19:45)
[2017-03-18] MEDS: PANTOPRAZOLE INJ 80 MG in SODIUM CHLORIDE 0.9% INJ 100 ML IV (20:00)
[2017-03-18] MEDS: SODIUM CHLORIDE 0.9% FLUSH 10 ML FLUSH IV FLUSH (20:00)
[2017-03-18 20:59] LABS: HEMOGLOBIN 12.4 GM/DL (11.6-15.3)
[2017-03-18 20:59] LABS: REVIEW FLAG FINAL
[2017-03-18] MEDS: INSULIN ASPART SUPPLEMENTAL SCALE SQ (21:00)
[2017-03-18] MEDS ORDERED: PANTOPRAZOLE SODIUM 40 MG VIAL IV PUSH (21:30)
[2017-03-18] MEDS ORDERED: PANTOPRAZOLE INJ 80 MG in SODIUM CHLORIDE 0.9% INJ 100 ML IV (23:00)
[2017-03-19] MEDS: cloNIDine HCL 0.1 MG TAB PO (00:52)
[2017-03-19] MEDS: SODIUM CHLOR 0.9% 1000 ML INJ 1,000 ML IV ×2 (00:53→09:55)
[2017-03-19 03:05] LABS: AUTOMATED NEUTROPHIL # 4.1 TH/MM3 (1.8-7.7); BASOPHIL # 0.1 TH/MM3 (0-0.2); BASOPHIL % 0.7 % (0.0-2.0); EOSINOPHIL # 0.6 TH/MM3 (0-0.4); EOSINOPHIL % 7.5 % (0.0-4.0); HEMATOCRIT 34.5 % (35.0-46.0); HEMO FLAGS DIFF FINAL; HEMOGLOBIN 11.6 GM/DL (11.6-15.3); LYMPH % 27.3 % (9.0-44.0); MEAN CORPUSCULAR HGB CONC 33.7 % (32.0-36.0); MEAN PLATELET VOLUME 7.5 FL (7.0-11.0); MONO % 8.7 % (0.0-8.0); MONOCYTE # 0.6 TH/MM3 (0-0.9); NEUT % 55.8 % (16.0-70.0); PLATELET COUNT 223 TH/MM3 (150-450); RED BLOOD COUNT 4.01 MIL/MM3 (4.00-5.30); RED CELL DISTRIBUTION WIDTH 15.3 % (11.6-17.2); WHITE BLOOD COUNT 7.4 TH/MM3 (4.0-11.0)
[2017-03-19 03:26] LABS: ANION GAP 6 MEQ/L (5-15); BICARBONATE 28.6 MEQ/L (21.0-32.0); BLOOD UREA NITROGEN 12 MG/DL (7-18); CHLORIDE 107 MEQ/L (98-107); CREATININE 0.78 MG/DL (0.50-1.00); GLOMERULAR FILTRATION RATE 70 ML/MIN (>89); GLUCOSE,RANDOM 89 MG/DL (74-106); SODIUM (NA) 142 MEQ/L (136-145)
[2017-03-19] MEDS: INSULIN ASPART SUPPLEMENTAL SCALE SQ ×2 (08:00→12:00)
[2017-03-19] MEDS: PANTOPRAZOLE INJ 80 MG in SODIUM CHLORIDE 0.9% INJ 100 ML IV (08:16)
[2017-03-19] MEDS: SODIUM CHLORIDE 0.9% FLUSH 10 ML FLUSH IV FLUSH (08:16)
[2017-03-19] MEDS: METOPROLOL TARTRATE 25 MG TAB PO (08:17)
[2017-03-19] MEDS: SPIRONOLACTONE 25 MG TAB PO (08:17)
[2017-03-19] MEDS: LISINOPRIL 5 MG TAB PO (08:17)
[2017-03-19] MEDS: DILTIAZEM-CD 120 MG CAP ER PO (08:18)
[2017-03-19] MEDS ORDERED: PROPOFOL 200 MG/20 ML AMP IV (12:00)
[2017-03-19] MEDS ORDERED: POVIDONE IODINE 5% (ANTISEPSIS KIT) 4 APPLICATIONS EACH NARE (12:30)
[2017-03-19] MEDS ORDERED: CHLORHEXIDINE GLUCONATE 2 % 1 PACK (2 CLOTHS) TOPICAL (12:30)
[2017-03-19] MEDS: LACTATED RINGER'S 1000 ML IV (13:32)
[2017-03-19] MEDS ORDERED: metFORMIN HCL 500 MG TAB PO (18:00)
[2017-03-19] MEDS ORDERED: PRAVASTATIN SOD 40 MG TAB PO (21:00)
[2017-03-19] MEDS ORDERED: GABAPENTIN 100 MG CAP PO (21:00)
[2017-03-19] MEDS ORDERED: NON-FORMULARY DRUG (Simvastatin (Zocor) 20 MG) PO (21:00)
[2017-03-20] MEDS ORDERED: PANTOPRAZOLE SOD 40 MG DELAYED RELEASE TAB PO (09:00)
== END 2017-03-19 17:54 | disposition home or self-care (01) ==
LOC: NEPE 13:54 → NEDA 16:36 → NEPFCDU 18:41
DX: K92.2 Gastrointestinal hemorrhage, unspecified (principal); D64.9 Anemia, unspecified; K64.8 Other hemorrhoids; I48.91 Unspecified atrial fibrillation; I10 Essential (primary) hypertension; E11.9 Type 2 diabetes mellitus without complications; K26.9 Duodenal ulcer, unspecified as acute or chronic, without hemorrhage or perforation; K21.0 Gastro-esophageal reflux disease with esophagitis; R42 Dizziness and giddiness; E78.5 Hyperlipidemia, unspecified; Z79.84 Long term (current) use of oral hypoglycemic drugs
CPT/HCPCS: 43235; 80048; 80053; 82948; 83690; 85014; 85018; 85025; 85610; 85730; 86850; 86900; 86901; 96361; 96365; 97161-GP; 99285-25

== ENCOUNTER 2017-04-24 16:38 | Emergency (ER) | payer OTHER ==
[~2017-04-24] VITALS: Ht 170.2 cm; Wt 81.0 kg
[~2017-04-24 16:38] MED LIST changes: -AMLO10 PO; -ASPI-183 PO; +ASPI81TA23 PO; +CARD120C4 PO; -CLON0.1T PO; -MACR100C3 PO; +PROT40TA PO
[2017-04-24 16:42] VITALS: BP 135/71; PULSE 111; RESP 16; TEMP 97.3; O2SAT 93
[2017-04-24 17:10] VITALS: BP_SYST 106; BP_SYST 121; BP_SYST 142; BP_DIAS 55; BP_DIAS 64; BP_DIAS 74; RESP 18; RESP 24; RESP 28
[2017-04-24] MEDS ORDERED: SODIUM CHLORIDE 0.9% FLUSH 10 ML FLUSH IVF PRN (17:15)
[2017-04-24] MEDS ORDERED: MECLIZINE HCL 25 MG TAB PO ONE (17:15)
[2017-04-24] MEDS ORDERED: ONDANSETRON HCL 4 MG/2 ML VIAL IVP ONE (17:15)
--- NOTE | 2017-04-24 17:20 | PD ---
HPI Chief Complaint: Dizziness Time Seen by Provider: 17:08 Travel History International Travel<30 days: No Contact w/Intl Traveler<30days: No Traveled to known affect area: No History of Present Illness HPI 86-year-old female with PMH of A. fib, DM, HTN presents to the ED for evaluation of 3 day history of dizziness. She states that symptoms resolve when she is lying or sitting down, however every time she stands up she feels as if she is going to faint. She denies room spinning. He denies cold or flu symptoms, headache, vision changes, chest pain, shortness of breath, nausea, vomiting, dysuria, weakness of the extremities, difficulties with word finding, facial droop. She does not take blood thinners. She denies recent changes in her medications. PFSH Past Medical History Hx Anticoagulant Therapy: No Atrial Fibrillation: Yes Heart Rhythm Problems: Yes Cancer: No Cardiovascular Problems: Yes (A-FIB) High Cholesterol: No Chest Pain: No Congestive Heart Failure: No Diabetes: Yes Patient Takes Glucophage: No Diminished Hearing: No Endocrine: No GERD: Yes Hypertension: Yes (LAST 5 YEARS) Immune Disorder: No Kidney Stones: No Musculoskeletal: No Neurologic: No Psychiatric: No Reproductive: No Respiratory: No Renal Failure: No Ulcer: Yes Menopausal: Yes : 10 Para: 9 Miscarriage: 1 Past Surgical History Abdominal Surgery: Yes Cardiac Surgery: No Section: Yes (1967) Ear Surgery: No Endocrine Surgery: No Eye Surgery: No Genitourinary Surgery: Yes Gynecologic Surgery: Yes Hysterectomy: Yes (1967--"PARTIAL") Oral Surgery: No Thoracic Surgery: No Social History Alcohol Use: No Tobacco Use: No Substance Use: No Allergies-Medications (Allergen,Severity, Reaction): Coded Allergies: No Known Allergies (Verified Allergy, Unknown, 03/18/17) Reported Meds & Prescriptions Reported Meds & Active Scripts Active Macrobid (Nitrofurantoin Monoh/Nitrofur Macro) 100 Mg Cap 100 Mg PO BID 5 Days Cardizem CD 24 HR (Diltiazem CD 24 HR) 120 Mg Caper 120 Mg PO DAILY Aspirin EC (Aspirin) 81 Mg Tabdr 81 Mg PO DAILY 30 Days Protonix (Pantoprazole Sodium) 40 Mg Tab 40 Mg PO DAILY Reported Meclizine (Meclizine HCl) 25 Mg Tab 25 Mg PO BID PRN Lisinopril 5 Mg Tab 5 Mg PO DAILY Neurontin (Gabapentin) 100 Mg Cap 100 Mg PO HS Zocor (Simvastatin) 20 Mg Tab 20 Mg PO HS Claritin (Loratadine) 10 Mg Tablet 10 Mg PO DAILY Aldactone (Spironolactone) 25 Mg Tab 25 Mg PO DAILY Metoprolol Tartrate 25 Mg Tab 25 Mg PO BID Metformin (Metformin HCl) 500 Mg Tab 500 Mg PO BID With Meals Glipizide 5 Mg Tab 2.5 Mg PO DAILY Take 30 minutes before a meal Alpha Lipoic Acid 200 Mg Cap 600 Mg PO DAILY Vitamin D-3 (Cholecalciferol) 1,000 Unit Cap 1,000 Units PO DAILY Fish Oil Triple Strength 1400 mg ([place]-3 Fatty Acids) 900 Mg (253 Mg-647 Mg)-1, 400 Mg Cap 1,400 Mg PO DAILY Move Free Joint Health Ad (Mhjrsfpgpor-Cfcvmmnzthz-Prtzbk) 750 Mg-100 Mg-1.65 Mg -108 Mg Tab 1 Tab PO DAILY Multiple Vitamin 1 Tab 1 Tab PO DAILY Review of Systems Except as stated in HPI: all other systems reviewed are Neg Physical Exam Narrative GENERAL: Well-nourished, well-developed white female in no acute distress. SKIN: Focused skin assessment warm/dry. HEAD: Normocephalic. EYES: No scleral icterus. No injection or drainage. NECK: Supple, trachea midline. No JVD or lymphadenopathy. CARDIOVASCULAR: Regular rate and rhythm without murmurs, gallops, or rubs. RESPIRATORY: Breath sounds equal bilaterally. No accessory muscle use. GASTROINTESTINAL: Abdomen soft, non-tender, nondistended. MUSCULOSKELETAL: No cyanosis, or edema. NEUROLOGICAL: Awake and alert. Cranial nerves II through XII intact. Motor and sensory grossly within normal limits. Five out of 5 muscle strength in all muscle groups. Normal speech. BACK: Nontender without obvious deformity. No CVA tenderness. Data Data Last Documented VS Vital Signs Date Time Temp Pulse Resp B/P (MAP) Pulse Ox O2 Delivery O2 Flow Rate FiO2 04/24/17 17:22 (90) 04/24/17 17:10 95 18 96 24 111 28 04/24/17 16:42 97.3 93 Orders Orders Electrocardiogram (04/24/17 17:13) Complete Blood Count With Diff (04/24/17 17:13) Comprehensive Metabolic Panel (04/24/17 17:13) Magnesium (Mg) (04/24/17 17:13) Ckmb (Isoenzyme) Profile (04/24/17 17:13) Troponin I (04/24/17 17:13) Act Partial Throm Time (Ptt) (04/24/17 17:13) Prothrombin Time / Inr (Pt) (04/24/17 17:13) Urinalysis - C+S If Indicated (04/24/17 17:13) Chest, Single Ap (04/24/17 17:13) Ct Brain W/O Iv Contrast(Rout) (04/24/17 17:13) Ecg Monitoring (04/24/17 17:13) Iv Access Insert/Monitor (04/24/17 17:13) Oximetry (04/24/17 17:13) Meclizine (Antivert) (04/24/17 17:15) Ondansetron Inj (Zofran Inj) (04/24/17 17:15) Sodium Chloride 0.9% Flush (Ns Flush) (04/24/17 17:15) Orthostatic Vital Signs (04/24/17 17:13) Sodium Chlor 0.9% 1000 Ml Inj (Ns 1000 M (04/24/17 18:15) Cath For Specimen (04/24/17 18:53) Urine Culture (04/24/17 18:20) Nitrofurantoin Monohyd Macrocr (Macrobid (04/24/17 19:30) Ed Discharge Order (04/24/17 19:30) Labs Laboratory Tests Test 04/24/17 14:15 04/24/17 18:20 White Blood Count 9.0 TH/MM3 Red Blood Count 4.68 MIL/MM3 Hemoglobin 13.7 GM/DL Hematocrit 39.7 % Mean Corpuscular Volume 84.9 FL Mean Corpuscular Hemoglobin 29.3 PG Mean Corpuscular Hemoglobin Concent 34.5 % Red Cell Distribution Width 15.1 % Platelet Count 228 TH/MM3 Mean Platelet Volume 7.8 FL Neutrophils (%) (Auto) 50.0 % Lymphocytes (%) (Auto) 38.4 % Monocytes (%) (Auto) 6.3 % Eosinophils (%) (Auto) 4.5 % Basophils (%) (Auto) 0.8 % Neutrophils # (Auto) 4.5 TH/MM3 Lymphocytes # (Auto) 3.4 TH/MM3 Monocytes # (Auto) 0.6 TH/MM3 Eosinophils # (Auto) 0.4 TH/MM3 Basophils # (Auto) 0.1 TH/MM3 CBC Comment DIFF FINAL Differential Comment Prothrombin Time 10.7 SEC Prothromb Time International Ratio 1.1 RATIO Activated Partial Thromboplast Time 24.7 SEC Blood Urea Nitrogen 21 MG/DL Creatinine 1.35 MG/DL Random Glucose 171 MG/DL Total Protein 7.3 GM/DL Albumin 3.8 GM/DL Calcium Level 9.6 MG/DL Magnesium Level 1.7 MG/DL Alkaline Phosphatase 50 U/L Aspartate Amino Transf (AST/SGOT) 22 U/L Alanine Aminotransferase (ALT/SGPT) 26 U/L Total Bilirubin 0.3 MG/DL Sodium Level 140 MEQ/L Potassium Level 4.1 MEQ/L Chloride Level 105 MEQ/L Carbon Dioxide Level 28.9 MEQ/L Anion Gap 6 MEQ/L Estimat Glomerular Filtration Rate 37 ML/MIN Total Creatine Kinase 78 U/L Troponin I LESS THAN 0.02 NG/ML Urine Color YELLOW Urine Turbidity HAZY Urine pH 6.0 Urine Specific [place] 1.014 Urine Protein TRACE mg/dL Urine Glucose (UA) NEG mg/dL Urine Ketones NEG mg/dL Urine Occult Blood NEG Urine Nitrite NEG Urine Bilirubin NEG Urine Urobilinogen LESS THAN 2.0 MG/DL Urine Leukocyte Esterase LARGE Urine RBC 6 /hpf Urine WBC 22 /hpf Urine Squamous Epithelial Cells 11 /hpf Urine Transitional Epithelial Cells 1 /hpf Urine Bacteria MOD /hpf Microscopic Urinalysis Comment CULTURE INDICATED MDM Medical Decision Making Medical Screen Exam Complete: Yes Emergency Medical Condition: Yes Differential Diagnosis Orthostatic hypotension versus dehydration versus metabolic derangement versus UTI versus less likely ACS versus less likely ICH versus other Narrative Course 86-year-old female with PMH of A. fib, DM, HTN presents to the ED for evaluation of 3 day history of dizziness. She states that symptoms resolve when she is lying or sitting down, however every time she stands up she feels as if she is going to faint. She denies room spinning. She does not take blood thinners. She denies recent changes in her medications. Vitals reviewed. On physical exam this is a nontoxic-appearing white female in no acute distress. No focal neuro deficits. Chest CTA B. Abdomen soft and nontender. IV was established. Patient was administered 1 L normal saline, 50 mg meclizine, 4 mg Zofran IV. EKG: Rate 97, A. fib. RBBB. No acute ST changes. Reviewed by Dr. Melo. CXR: No acute disease per radiology read. Cardiac enzymes negative 1. Orthostatic vitals positive. CBC, coags, CMP without concerning abnormalities. UA: Hazy, large leukocyte Estrace, 22 WBCs. Moderate bacteria. Culture pending. I discussed the results of the workup with the patient and her son at bedside. I cautioned her to remain hydrated, rise from sitting or standing slowly. She is prescribed Macrobid on her milligrams twice a day 5 days, first dose administered in the ED. She is instructed to follow up with the PCP this week and return to the ED for worsening symptoms. The patient and her son indicated understanding of the instructions and are agreeable with the plan. The patient is stable and discharged home. Diagnosis Primary Impression: Orthostatic hypotension Additional Impression: Urinary tract infection Qualified Codes: N39.0 - Urinary tract infection, site not specified Referrals: Primary Care Physician Patient Instructions: General Instructions, Hypotension (ED), Urinary Tract Infection in Women (ED) Additional Instructions: Rest, hydrate. Use caution when rising to a standing position as discussed. Begin Macrobid tomorrow and take until every pill is gone. Follow-up with your primary care provider this week. Return to the ED for worsening symptoms or any urgent or emergent medical condition. Med/Other Pt SpecificInfo: Prescription(s) given Scripts Nitrofurantoin Monohydrate Macrocrystals (Macrobid) 100 Mg Cap 100 MG PO BID for Infection for 5 Days, #10 CAP 0 Refills Prov: Sneha Melo MD 04/24/17 Disposition: 01 DISCHARGE HOME Condition: Stable Isabella Duval Apr 24, 2017 17:20
[2017-04-24 17:26] LABS: AUTOMATED NEUTROPHIL # 4.5 TH/MM3 (1.8-7.7); BASOPHIL # 0.1 TH/MM3 (0-0.2); BASOPHIL % 0.8 % (0.0-2.0); EOSINOPHIL # 0.4 TH/MM3 (0-0.4); EOSINOPHIL % 4.5 % (0.0-4.0); HEMATOCRIT 39.7 % (35.0-46.0); HEMOGLOBIN 13.7 GM/DL (11.6-15.3); LYMPH % 38.4 % (9.0-44.0); LYMPHOCYTE # 3.4 TH/MM3 (1.0-4.8); MEAN CELL VOLUME 84.9 FL (80.0-100.0); MEAN CORPUSCULAR HEMOGLOBIN 29.3 PG (27.0-34.0); MEAN CORPUSCULAR HGB CONC 34.5 % (32.0-36.0); MEAN PLATELET VOLUME 7.8 FL (7.0-11.0); MONO % 6.3 % (0.0-8.0); MONOCYTE # 0.6 TH/MM3 (0-0.9); PLATELET COUNT 228 TH/MM3 (150-450); RED BLOOD COUNT 4.68 MIL/MM3 (4.00-5.30); RED CELL DISTRIBUTION WIDTH 15.1 % (11.6-17.2)
[2017-04-24 17:40] LABS: INTERNATIONAL NORMALIZED RATIO 1.1 RATIO; PROTHROMBIN TIME - PATIENT 10.7 SEC (9.8-11.6)
[2017-04-24 17:50] LABS: ALBUMIN 3.8 GM/DL (3.4-5.0); ALT (GPT) 26 U/L (10-53); AST (GOT) 22 U/L (15-37); BICARBONATE 28.9 MEQ/L (21.0-32.0); BLOOD UREA NITROGEN 21 MG/DL (7-18); CALCIUM 9.6 MG/DL (8.5-10.1); CHLORIDE 105 MEQ/L (98-107); CREATININE 1.35 MG/DL (0.50-1.00); GLOMERULAR FILTRATION RATE 37 ML/MIN (>89); GLUCOSE,RANDOM 171 MG/DL (74-106); MAGNESIUM 1.7 MG/DL (1.5-2.5); SODIUM (NA) 140 MEQ/L (136-145)
[2017-04-24 17:54] LABS: ALKALINE PHOSPHATASE 50 U/L (45-117); TOTAL BILIRUBIN ADULT 0.3 MG/DL (0.2-1.0); TOTAL PROTEIN 7.3 GM/DL (6.4-8.2); TROPONIN I LESS THAN 0.02 NG/ML (0.02-0.05)
[2017-04-24] MEDS ORDERED: MECL-62 PO (18:01)
--- NOTE | 2017-04-24 18:01 | RADRPT ---
EXAM DATE/TIME: 04/24/2017 17:36 [facility] COMPARISON: CT BRAIN W/O CONTRAST, January 29, 2017, 6:29. INDICATIONS : Dizziness for five days. RADIATION DOSE: 56.35 CTDIvol (mGy) MEDICAL HISTORY : Cardiovascular disease. Hypertension. Afib. SURGICAL HISTORY : Hysterectomy. ENCOUNTER: Initial ACUITY: 4 - 6 days PAIN SCALE: 3/10 LOCATION: Bilateral cranial TECHNIQUE: Multiple contiguous axial images were obtained of the head. Using automated exposure control and adj ustment of the mA and/or kV according to patient size, radiation dose was kept as low as reasonably a chievable to obtain optimal diagnostic quality images. DICOM format image data is available electro nically for review and comparison. FINDINGS: There is mild atrophy. No hemorrhage, infarct, or mass. No fractures. CONCLUSION: No acute disease. Chauncey Braswell MD on April 24, 2017 at 17:59 Board Certified Radiologist. This report was verified electronically.
--- NOTE | 2017-04-24 18:07 | PD ---
Physical Exam Date Seen by Provider: Apr 24, 2017 Narrative Patient presents with a chief complaint of dizziness. She describes dizziness when she stands up. She does not describe vertigo. Data Data Last Documented VS Vital Signs Date Time Temp Pulse Resp B/P (MAP) Pulse Ox O2 Delivery O2 Flow Rate FiO2 04/24/17 17:22 (90) 04/24/17 17:10 95 18 96 24 111 28 04/24/17 16:42 97.3 93 Orders Orders Electrocardiogram (04/24/17 17:13) Complete Blood Count With Diff (04/24/17 17:13) Comprehensive Metabolic Panel (04/24/17 17:13) Magnesium (Mg) (04/24/17 17:13) Ckmb (Isoenzyme) Profile (04/24/17 17:13) Troponin I (04/24/17 17:13) Act Partial Throm Time (Ptt) (04/24/17 17:13) Prothrombin Time / Inr (Pt) (04/24/17 17:13) Urinalysis - C+S If Indicated (04/24/17 17:13) Chest, Single Ap (04/24/17 17:13) Ct Brain W/O Iv Contrast(Rout) (04/24/17 17:13) Ecg Monitoring (04/24/17 17:13) Iv Access Insert/Monitor (04/24/17 17:13) Oximetry (04/24/17 17:13) Meclizine (Antivert) (04/24/17 17:15) Ondansetron Inj (Zofran Inj) (04/24/17 17:15) Sodium Chloride 0.9% Flush (Ns Flush) (04/24/17 17:15) Orthostatic Vital Signs (04/24/17 17:13) Ns (Bolus) Inj (04/24/17 18:15) Labs Laboratory Tests Test 04/24/17 14:15 White Blood Count 9.0 TH/MM3 Red Blood Count 4.68 MIL/MM3 Hemoglobin 13.7 GM/DL Hematocrit 39.7 % Mean Corpuscular Volume 84.9 FL Mean Corpuscular Hemoglobin 29.3 PG Mean Corpuscular Hemoglobin Concent 34.5 % Red Cell Distribution Width 15.1 % Platelet Count 228 TH/MM3 Mean Platelet Volume 7.8 FL Neutrophils (%) (Auto) 50.0 % Lymphocytes (%) (Auto) 38.4 % Monocytes (%) (Auto) 6.3 % Eosinophils (%) (Auto) 4.5 % Basophils (%) (Auto) 0.8 % Neutrophils # (Auto) 4.5 TH/MM3 Lymphocytes # (Auto) 3.4 TH/MM3 Monocytes # (Auto) 0.6 TH/MM3 Eosinophils # (Auto) 0.4 TH/MM3 Basophils # (Auto) 0.1 TH/MM3 CBC Comment DIFF FINAL Differential Comment Prothrombin Time 10.7 SEC Prothromb Time International Ratio 1.1 RATIO Activated Partial Thromboplast Time 24.7 SEC Blood Urea Nitrogen 21 MG/DL Creatinine 1.35 MG/DL Random Glucose 171 MG/DL Total Protein 7.3 GM/DL Albumin 3.8 GM/DL Calcium Level 9.6 MG/DL Magnesium Level 1.7 MG/DL Alkaline Phosphatase 50 U/L Aspartate Amino Transf (AST/SGOT) 22 U/L Alanine Aminotransferase (ALT/SGPT) 26 U/L Total Bilirubin 0.3 MG/DL Sodium Level 140 MEQ/L Potassium Level 4.1 MEQ/L Chloride Level 105 MEQ/L Carbon Dioxide Level 28.9 MEQ/L Anion Gap 6 MEQ/L Estimat Glomerular Filtration Rate 37 ML/MIN Total Creatine Kinase 78 U/L Troponin I LESS THAN 0.02 NG/ML MDM Supervised Visit with SVETLANA: Yes Interpretation(s) EKG shows fibrillation. She also has a right bundle-branch block. Narrative Course I, Dr. Melo, have reviewed the advance practice practitioner's documentation and am in agreement, met with the patient face to face, made the diagnosis, and the medical decision making was done by me. *My assessment and Findings: Patient is awake and alert and in no acute distress. Orthostatic vital signs are positive. I have ordered a liter of fluid. Please see Isabella Duval PA-C's note for results of laboratory and radiographic evaluation, ED course, final diagnosis and disposition Sneha Melo MD Apr 24, 2017 18:07
[2017-04-24] MEDS ORDERED: SODIUM CHLOR 0.9% 1000 ML INJ 1,000 ML IV ONE (18:15)
--- NOTE | 2017-04-24 18:46 | RADRPT ---
EXAM DATE/TIME: 04/24/2017 18:27 [facility] COMPARISON: CHEST SINGLE AP, January 27, 2017, 17:43. INDICATIONS : Dizziness for 5 days MEDICAL HISTORY : Cardiovascular disease. Hypertension. Afib SURGICAL HISTORY : Hysterectomy. ENCOUNTER: Initial ACUITY: 4 - 6 days PAIN SCORE: 0/10 LOCATION: Bilateral chest FINDINGS: A single view of the chest demonstrates the lungs to be symmetrically aerated without evidence of mas s, infiltrate or effusion. The cardiomediastinal contours are unremarkable. Osseous structures are intact. CONCLUSION: No acute disease. Prince Allen MD on April 24, 2017 at 18:45 Board Certified Radiologist. This report was verified electronically.
[2017-04-24 19:09] LABS: BACTERIA, URINE MOD /hpf; BILIRUBIN, URINE NEG (NEG); BLOOD, URINE NEG (NEG); GLUCOSE,URINE NEG (NEG); KETONE, URINE NEG (NEG); NITRITE,URINE NEG (NEG); SQUAMOUS EPITHELIAL CELL URINE 11 /hpf (0-5); TRANSITIONAL EPI CELLS, URINE 1 /hpf; URINE COLOR YELLOW (YELLW/STRAW); URINE LEUKOCYTE ESTERASE LARGE (NEG)
[2017-04-24] MEDS ORDERED: MACR100C2 PO (19:27)
[2017-04-24] MEDS ORDERED: NITROFURANTOIN MONOHYD MACROCR 100 MG CAP PO ONE (19:30)
--- NOTE | 2017-04-25 09:18 | EKG ---
Date Performed: 04/24/2017 Time Performed: 17:21:23 PTAGE: 86 years EKG: ATRIAL FIBRILLATION RIGHT BUNDLE BRANCH BLOCK POSSIBLE ANTERIOR MYOCARDIAL INFARCTION INFER IOR MYOCARDIAL INFARCTION ABNORMAL ECG PREVIOUS TRACING : 01/29/2017 08.33 DOCTOR: Barber Magana Interpretating Date/Time 04/25/2017 09:17:55
== END 2017-04-24 20:47 | disposition home or self-care (01) ==
LOC: NEPE 16:38
DX: I95.1 Orthostatic hypotension (principal); N39.0 Urinary tract infection, site not specified; I48.91 Unspecified atrial fibrillation; I45.10 Unspecified right bundle-branch block; I10 Essential (primary) hypertension; E11.9 Type 2 diabetes mellitus without complications; Z79.84 Long term (current) use of oral hypoglycemic drugs; Z79.899 Other long term (current) drug therapy
CPT/HCPCS: 70450; 71045; 80053; 81001; 82550; 83735; 84484; 85025; 85610; 85730; 87086; 93005; 96361; 96374; 99285; J2405; J7030